=== PATIENT | female | born 1995 | race Caucasian/White ===

== ENCOUNTER → 2016-09-07 | Outpatient (REF) | payer OTHER ==
[2016-09-16 15:14] LABS: FREE CORTISOL 24HR URINE 36 ug/24 hr (0-50); FREE CORTISOL URINE 26 ug/L (Undefined)
== END ==
LOC: M LAB REF 09:00
PROVIDERS: ATTEND Internal Medicine Endocrinology, Diabetes & Metabolism
DX: E66.9 Obesity, unspecified (principal)

== ENCOUNTER → 2016-09-26 | Outpatient (CLI) | payer OTHER ==
[2016-09-26 13:03] LABS: BASO % 0.3 % (0.0-1.0); EOS # 0.2 K/mm3 (0.0-0.50); EOS % 1.9 % (0.0-3.0); LARGE UNSTAINED CELL # 0.2 K/mm3 (0.0-0.4); LARGE UNSTAINED CELL % 1.4 % (0.0-4.0); LYMPH # 2.2 K/mm3 (1.5-6.5); LYMPH % 19.7 % (24.0-44.0); MEAN CORPUSCULAR HEMOGLOBIN 26.6 pg (27.0-33.0); MEAN CORPUSCULAR HGB CONC 31.4 g/dl (32.0-36.5); MEAN CORPUSCULAR VOLUME 84.6 fl (80.0-96.0); MONO # 0.6 K/mm3 (0.0-0.8); MONO % 5.4 % (0.0-5.0); NEUTROPHILS % 71.4 % (36.0-66.0); PLATELET COUNT, AUTOMATED 462 k/mm3 (150-450); RED CELL DISTRIBUTION WIDTH 12.9 % (11.5-14.5); WHITE BLOOD COUNT 11.2 K/mm3 (4.0-10.0)
[2016-09-26 13:17] LABS: ALBUMIN 3.4 GM/DL (3.2-5.2); ALBUMIN/GLOBULIN RATIO 0.89 (1.00-1.93); ALKALINE PHOSPHATASE 149 U/L (45-117); ALT/SGPT 22 U/L (12-78); ANION GAP 9 MEQ/L (8-16); AST/SGOT 14 U/L (15-37); BILIRUBIN,TOTAL 0.2 MG/DL (0.2-1.0); BLOOD UREA NITROGEN 12 MG/DL (7-18); CALCIUM LEVEL 9.1 MG/DL (8.5-10.1); CARBON DIOXIDE LEVEL 25 MEQ/L (21-32); CHLORIDE LEVEL 105 MEQ/L (98-107); CREATININE FOR GFR 0.81 MG/DL (0.55-1.02); FREE T4 0.97 NG/DL (0.76-1.46); GLOMERULAR FILTRATION RATE > 60.0 (>60); GLUCOSE, FASTING 215 MG/DL (70-105); POTASSIUM SERUM 4.5 MEQ/L (3.5-5.1); SODIUM LEVEL 139 MEQ/L (136-145); TOTAL PROTEIN 7.2 GM/DL (6.4-8.2)
== END ==
LOC: M LAB 11:38
PROVIDERS: ATTEND Family Medicine
DX: E10.65 Type 1 diabetes mellitus with hyperglycemia (principal)

== ENCOUNTER → 2016-10-02 | Outpatient (CLI) | payer OTHER ==
[2016-10-02 15:50] LABS: FOLATE 12.1 NG/ML (>5.4)
[2016-10-02 17:01] LABS: PERCENT SATURATION 10.7 % (13.2-37.4)
== END ==
LOC: M LAB 12:47
PROVIDERS: ATTEND Family Medicine
DX: E55.9 Vitamin D deficiency, unspecified (principal); D64.9 Anemia, unspecified

== ENCOUNTER → 2017-03-28 | Outpatient (CLI) | payer OTHER ==
[~2017-03-28] MED LIST: AUGM875T28 PO; EFFE150C PO; INSUH10VL SC; INSULANT SC; IRON50TA PO; VITA-137 PO
[2017-03-28 14:09] LABS: PERCENT SATURATION 14.9 % (13.2-45.0)
== END ==
LOC: M LAB 13:02
PROVIDERS: ATTEND Family Medicine
DX: E55.9 Vitamin D deficiency, unspecified (principal)

== ENCOUNTER → 2017-04-18 | Outpatient (REF) | payer OTHER | LOC: M LAB REF 15:00 | PROVIDERS: ATTEND Family Medicine | DX: Z12.4 Encounter for screening for malignant neoplasm of cervix (principal) ==

== ENCOUNTER 2017-07-24 04:18 | Emergency (ER) | payer OTHER ==
[~2017-07-24] VITALS: Ht 157.5 cm; Wt 90.9 kg
[2017-07-24] MEDS ORDERED: ONDANSETRON 4MG/2ML VIAL (J2405) IV ONE (05:00)
[2017-07-24] MEDS ORDERED: D5W/0.45% SODIUM CHLORIDE 1,000 ML IV SCH (05:00)
[2017-07-24 05:32] LABS: ANION GAP 7 MEQ/L (8-16); BLOOD UREA NITROGEN 16 MG/DL (7-18); CALCIUM LEVEL 9.2 MG/DL (8.5-10.1); CARBON DIOXIDE LEVEL 30 MEQ/L (21-32); CHLORIDE LEVEL 102 MEQ/L (98-107); CREATININE FOR GFR 0.83 MG/DL (0.55-1.02); GLOMERULAR FILTRATION RATE > 60.0 (>60); GLUCOSE, FASTING 125 MG/DL (70-105); SODIUM LEVEL 139 MEQ/L (136-145)
[2017-07-24] MEDS ORDERED: METOCLOPRAMIDE INJ 10MG/2ML VIAL (J2765) IV ONE (06:45)
[2017-07-24] MEDS ORDERED: PROMETHAZINE INJ 25 MG/ML VIAL (J2550) IV ONE (08:15)
[2017-07-24] MEDS ORDERED: MECLIZINE 25 MG TABLET PO ONE (10:00)
[2017-07-24] MEDS ORDERED: NS 1,000 ML IV ONE (11:45)
[2017-07-24] MEDS ORDERED: ZOFR4TAB3 PO (12:02)
[2017-07-24 13:16] VITALS: BP 150/87
== END 2017-07-24 13:18 | disposition home or self-care (01) ==
LOC: M ED 04:18
DX: E10.649 Type 1 diabetes mellitus with hypoglycemia without coma (principal); T38.3X1A Poisoning by insulin and oral hypoglycemic [antidiabetic] drugs, accidental (unintentional), initial encounter; Y92.9 Unspecified place or not applicable; Y93.9 Activity, unspecified; Z79.4 Long term (current) use of insulin; Z79.899 Other long term (current) drug therapy
CPT/HCPCS: 80048; 96361; 96374; 96375; 99284; J2405; J2765

== ENCOUNTER 2018-07-17 10:49 | Emergency (ER) | payer OTHER, SELFPAY ==
[2018-07-17 11:24] LABS: BASO # 0.1 10^3/uL (0.0-0.2); BASO % 0.5 % (0.0-1.0); EOS # 0.1 10^3/uL (0.0-0.50); EOS % 0.9 % (0.0-3.0); HEMATOCRIT 40.6 % (36.0-47.0); HEMOGLOBIN 13.2 g/dl (12.0-15.5); IMMATURE GRANULOCYTE % 0.4 % (0-3.0); LYMPH # 3.3 10^3/uL (1.5-6.5); LYMPH % 29.9 % (24.0-44.0); MEAN CORPUSCULAR HEMOGLOBIN 27.8 pg (27.0-33.0); MEAN CORPUSCULAR HGB CONC 32.5 g/dl (32.0-36.5); MEAN CORPUSCULAR VOLUME 85.5 fl (80.0-96.0); MONO # 0.8 10^3/uL (0.0-0.8); MONO % 7.1 % (0.0-5.0); NEUTROPHILS # 6.7 10^3/uL (1.8-7.7); NEUTROPHILS % 61.2 % (36.0-66.0); PLATELET COUNT, AUTOMATED 407 10^3/uL (150-450); RED BLOOD COUNT 4.75 10^6/uL (4.00-5.40)
[2018-07-17 11:26] LABS: BEDSIDE GLUCOSE 211 MG/DL (70-105)
[2018-07-17 11:30] LABS: KETONE, URINE AUTO RFX NEGATIVE (NEGATIVE); LEUKOCYTE ESTERASE UR AUTO RFX 3+ (NEGATIVE); NITRITE, URINE AUTO RFX NEGATIVE (NEGATIVE); RBC, URINE AUTO RFX 17 /HPF (0-3); SPECIFIC GRAVITY UR AUTO RFX 1.014 (1.002-1.035); SQUAM EPITHELIAL CELL UR AURFX 5 /HPF (0-6); WBC, URINE AUTO RFX 12 /HPF (0-3)
[2018-07-17] MEDS: HumaLOG INSULIN (NovoLOG) PER UNIT SC (12:04)
[2018-07-17 13:11] LABS: HCG, SERUM QUANTITATIVE 9218 MIU/ML
== END 2018-07-17 13:37 | disposition home or self-care (01) ==
LOC: M ED 10:49
DX: O23.31 Infections of other parts of urinary tract in pregnancy, first trimester (principal); Z3A.01 Less than 8 weeks gestation of pregnancy; O24.011 Pre-existing type 1 diabetes mellitus, in pregnancy, first trimester; E10.9 Type 1 diabetes mellitus without complications; O99.341 Other mental disorders complicating pregnancy, first trimester; F41.9 Anxiety disorder, unspecified; Z79.899 Other long term (current) drug therapy; Z79.84 Long term (current) use of oral hypoglycemic drugs
CPT/HCPCS: 76801

== ENCOUNTER → 2018-07-22 | Outpatient (CLI) | payer OTHER ==
[2018-07-22 17:39] LABS: HEMATOCRIT 40.1 % (36.0-47.0); HEMOGLOBIN 12.9 g/dl (12.0-15.5); MEAN CORPUSCULAR HEMOGLOBIN 27.6 pg (27.0-33.0); MEAN CORPUSCULAR HGB CONC 32.2 g/dl (32.0-36.5); MEAN CORPUSCULAR VOLUME 85.9 fl (80.0-96.0); PLATELET COUNT, AUTOMATED 413 10^3/uL (150-450); RED BLOOD COUNT 4.67 10^6/uL (4.00-5.40); WHITE BLOOD COUNT 11.1 10^3/uL (4.0-10.0)
[2018-07-22 18:00] LABS: HCG, SERUM QUANTITATIVE 630 MIU/ML
== END ==
LOC: M LAB 17:07
DX: C03.9 Malignant neoplasm of gum, unspecified (principal)
CPT/HCPCS: 84702

== ENCOUNTER → 2018-08-04 | Outpatient (CLI) | payer OTHER ==
[~2018-08-04] MED LIST changes: -EFFE150C PO; +EFFE150C2 PO; +FLUO20CA19 PO; +LANTINJ4; +MACR100C43 PO; +NOVOINJ3; +RIGHTAB2 PO; +ZOFR4TAB14 PO
== END ==
LOC: M SMT 10:47
PROVIDERS: ATTEND Obstetrics & Gynecology
DX: O03.9 Complete or unspecified spontaneous abortion without complication (principal)

== ENCOUNTER → 2018-10-09 | Outpatient (REF) | payer OTHER | LOC: M LAB REF 17:36 | PROVIDERS: ATTEND Physician Assistant | DX: R10.11 Right upper quadrant pain (principal) ==

== ENCOUNTER → 2018-10-19 | Outpatient (REF) | payer OTHER | LOC: M LAB REF 17:41 | PROVIDERS: ATTEND Physician Assistant | DX: J09.X2 Influenza due to identified novel influenza A virus with other respiratory manifestations (principal); J02.9 Acute pharyngitis, unspecified ==

== ENCOUNTER → 2019-01-07 | Outpatient (REF) | payer OTHER | LOC: M LAB REF 17:07 | PROVIDERS: ATTEND Physician Assistant | DX: N30.01 Acute cystitis with hematuria (principal) ==

== ENCOUNTER → 2019-03-18 | Outpatient (REF) | payer OTHER ==
[2019-03-18 14:37] LABS: CREATININE,RANDOM URINE 90.1 MG/DL; TOTAL PROTEIN,RANDOM URINE 132.5 MG/DL (0.0-12.0)
== END ==
LOC: M LAB REF 13:18
PROVIDERS: ATTEND Internal Medicine Nephrology
DX: R80.9 Proteinuria, unspecified (principal)

== ENCOUNTER 2019-05-25 11:18 | Emergency (ER) | payer OTHER ==
[~2019-05-25] VITALS: Ht 157.5 cm; Wt 104.3 kg
[2019-05-25] MEDS ORDERED: D 50CAP (11:25)
[2019-05-25] MEDS ORDERED: PRENTAB56 (11:25)
[2019-05-25] MEDS ORDERED: NORG0.25 (11:25)
[2019-05-25] MEDS ORDERED: LOSA25TA14 (11:25)
[2019-05-25 11:37] VITALS: BP 139/70
--- NOTE | 2019-05-25 12:47 | REP ---
LEFT FOOT, FOUR VIEWS: There is no evidence of an acute fracture, dislocation or intrinsic bone disease. IMPRESSION: No fracture or dislocation. Electronically Signed by Leonard Bose MD 05/25/2019 11:33 P
== END 2019-05-25 12:29 | disposition home or self-care (01) ==
LOC: M ED 11:18
DX: S93.401A Sprain of unspecified ligament of right ankle, initial encounter (principal); W18.41XA Slipping, tripping and stumbling without falling due to stepping on object, initial encounter; Y92.89 Other specified places as the place of occurrence of the external cause; Z79.899 Other long term (current) drug therapy

== ENCOUNTER → 2019-08-24 | Outpatient (REF) | payer OTHER ==
[~2019-08-24] MED LIST changes: +D 50CAP; +LOSA25TA14; +NORG0.25; +PRENTAB56
[2019-08-24 17:37] LABS: CALCIUM LEVEL 9.4 MG/DL (8.5-10.1); CREATININE FOR GFR 1.21 MG/DL (0.55-1.30); GLOMERULAR FILTRATION RATE 57.7 (>60); POTASSIUM SERUM 4.3 MEQ/L (3.5-5.1)
== END ==
LOC: M LAB REF 17:03
PROVIDERS: ATTEND Internal Medicine Nephrology
DX: N18.2 Chronic kidney disease, stage 2 (mild) (principal)

== ENCOUNTER → 2019-09-08 | Outpatient (CLI) | payer OTHER ==
[2019-09-08 15:43] LABS: BASO % 0.3 % (0.0-1.0); EOS # 0.2 10^3/uL (0.0-0.5); EOS % 1.6 % (0.0-3.0); HEMATOCRIT 39.8 % (36.0-47.0); HEMOGLOBIN 12.6 g/dl (12.0-15.5); LYMPH # 4.2 10^3/uL (1.5-5.0); LYMPH % 30.7 % (24.0-44.0); MEAN CORPUSCULAR HEMOGLOBIN 26.9 pg (27.0-33.0); MEAN CORPUSCULAR HGB CONC 31.7 g/dl (32.0-36.5); MEAN CORPUSCULAR VOLUME 84.9 fl (80.0-96.0); MONO # 1.1 10^3/uL (0.0-0.8); MONO % 7.8 % (0.0-5.0); NEUTROPHILS # 8.1 10^3/uL (1.5-8.5); PLATELET COUNT, AUTOMATED 448 10^3/uL (150-450); RED BLOOD COUNT 4.69 10^6/uL (4.00-5.40); WHITE BLOOD COUNT 13.8 10^3/uL (4.0-10.0)
[2019-09-08 16:22] LABS: ALBUMIN 3.3 GM/DL (3.2-5.2); BILIRUBIN,TOTAL 0.2 MG/DL (0.2-1.0); CALCIUM LEVEL 9.8 MG/DL (8.5-10.1); CREATININE FOR GFR 1.23 MG/DL (0.55-1.30); FREE T4 1.03 NG/DL (0.76-1.46); GLOMERULAR FILTRATION RATE 56.6 (>60); POTASSIUM SERUM 3.9 MEQ/L (3.5-5.1); THYROID STIMULATING HORMONE 2.88 uIU/ML (0.358-3.740); TOTAL PROTEIN 7.6 GM/DL (6.4-8.2)
[2019-09-08 16:25] LABS: TOTAL 25(OH) VITAMIN D 59.2 NG/ML (30.0-100.0)
[2019-09-08 16:43] LABS: MAU/CREAT RATIO 1556.6 MCG/MG (0.0-30.0)
== END ==
LOC: M LAB 15:14
PROVIDERS: ATTEND Family Medicine
DX: R80.8 Other proteinuria (principal); E10.65 Type 1 diabetes mellitus with hyperglycemia; Z68.41 Body mass index [BMI] 40.0-44.9, adult

== ENCOUNTER → 2020-03-19 | Outpatient (CLI) | payer OTHER ==
[~2020-03-19] MED LIST changes: +CETI10CH PO; -FLUO20CA19 PO; +FLUO20CA22 PO
== END ==
LOC: M LABSMTC 09:00
PROVIDERS: ATTEND Family Medicine
DX: Z11.59 Encounter for screening for other viral diseases (principal); Z20.828 Contact with and (suspected) exposure to other viral communicable diseases
CPT/HCPCS: C9803; U0003

== ENCOUNTER 2020-06-05 22:11 | Emergency (ER) | payer OTHER ==
[~2020-06-05] VITALS: Ht 157.5 cm; Wt 114.7 kg
[~2020-06-05 22:11] MED LIST changes: -CETI10CH PO
[2020-06-05] MEDS ORDERED: CETI10CH PO (22:17)
[2020-06-06 00:32] LABS: BASO # 0.1 10^3/uL (0.0-0.2); BASO % 0.5 % (0.0-1.0); EOS # 0.2 10^3/uL (0.0-0.5); EOS % 2.1 % (0.0-3.0); HEMATOCRIT 38.5 % (36.0-47.0); HEMOGLOBIN 12.1 g/dl (12.0-15.5); LYMPH # 3.5 10^3/uL (1.5-5.0); LYMPH % 31.6 % (24.0-44.0); MEAN CORPUSCULAR HGB CONC 31.4 g/dl (32.0-36.5); MEAN CORPUSCULAR VOLUME 85.9 fl (80.0-96.0); MONO # 1.1 10^3/uL (0.0-0.8); MONO % 10.3 % (0.0-5.0); NEUTROPHILS # 6.1 10^3/uL (1.5-8.5); NEUTROPHILS % 55.2 % (36.0-66.0); PLATELET COUNT, AUTOMATED 445 10^3/uL (150-450); RED BLOOD COUNT 4.48 10^6/uL (4.00-5.40)
--- NOTE | 2020-06-06 02:27 | REPVR ---
PROCEDURE INFORMATION: Exam: US Nonobstetric Pelvis; Complete Exam date and time: 06/06/20 (1:39am) Age: 25 years old Clinical indication: Pelvic pain. Cramping. Late menses. TECHNIQUE: Imaging protocol: Transabdominal and transvagainal pelvic non-obstetric ultrasound. Complete examination. Real time ultrasound with image documentation. COMPARISON: No relevant prior studies available FINDINGS: The LMP is reported to be: 04/29/20 The uterus is anteverted, measuring 7.2 x 3.6 x 4.3 cm in dimensions. No uterine mass is seen. The endometrium is thickened (12 mm thickness). The right ovary measures 3.1 x 3.0 x 3.3 cm in size. Right ovarian cyst (1.3 cm size). The left ovary measures 2.8 x 2.4 x 2.4 cm in size. There is no evidence of ovarian torsion on Doppler evaluation. No free pelvic fluid. No solid adnexal masses. Urinary bladder measures 6.1 x 2.7 x 5.0 cm in dimensions. Bladder volume = 67 ml. IMPRESSION: No acute pathology. Thickened endometrium (12 mm thickness). Simple right ovarian cyst (1.3 cm size). No evidence of ovarian torsion. No free pelvic fluid. Electronically signed by: Cookie Khan On 06/06/2020 02:27:24 AM
[2020-06-06 04:15] VITALS: BP 132/66
== END 2020-06-06 04:16 | disposition home or self-care (01) ==
LOC: M ED 22:11
DX: N91.2 Amenorrhea, unspecified (principal); N83.291 Other ovarian cyst, right side; E10.9 Type 1 diabetes mellitus without complications; F41.9 Anxiety disorder, unspecified; Z79.4 Long term (current) use of insulin; Z79.899 Other long term (current) drug therapy

== ENCOUNTER → 2020-08-18 | Outpatient (REF) | payer OTHER ==
[~2020-08-18] MED LIST changes: +CETI10CH PO
== END ==
LOC: M LAB REF 12:58
PROVIDERS: ATTEND Family Medicine
DX: J06.9 Acute upper respiratory infection, unspecified (principal)

== ENCOUNTER → 2020-09-06 | Outpatient (REF) | payer OTHER | LOC: M SFHCWAGY 13:20 | PROVIDERS: ATTEND Obstetrics & Gynecology | DX: Z12.4 Encounter for screening for malignant neoplasm of cervix (principal) | CPT/HCPCS: G0123; G0463 ==

== ENCOUNTER → 2020-10-06 | Outpatient (REF) | payer OTHER ==
[2020-10-06 13:29] LABS: INFLUENZA A AMPLIFICATION NEGATIVE (NEGATIVE); INFLUENZA B AMPLIFICATION NEGATIVE (NEGATIVE)
== END ==
LOC: M LAB REF 12:28
PROVIDERS: ATTEND Physician Assistant
DX: R50.9 Fever, unspecified (principal)

== ENCOUNTER → 2020-11-30 | Outpatient (REF) | payer OTHER ==
[2020-11-30 14:27] LABS: HEMATOCRIT 38.7 % (36.0-47.0); HEMOGLOBIN 11.9 g/dl (12.0-15.5); MEAN CORPUSCULAR HEMOGLOBIN 26.6 pg (27.0-33.0); MEAN CORPUSCULAR HGB CONC 30.7 g/dl (32.0-36.5); MEAN CORPUSCULAR VOLUME 86.4 fl (80.0-96.0); PLATELET COUNT, AUTOMATED 446 10^3/uL (150-450); RED BLOOD COUNT 4.48 10^6/uL (4.00-5.40); WHITE BLOOD COUNT 11.3 10^3/uL (4.0-10.0)
[2020-11-30 16:09] LABS: CHLAMYDIA DNA AMPLIFICATION NEGATIVE (NEGATIVE); GC DNA AMPLIFICATION NEGATIVE (NEGATIVE)
[2020-11-30 17:54] LABS: ALT/SGPT 32 U/L (12-78); BILIRUBIN,TOTAL 0.3 MG/DL (0.2-1.0); GLOMERULAR FILTRATION RATE > 60.0 (>60); LDH LACTATE DEHYDROGENASE 226 U/L (84-246); URIC ACID 4.5 MG/DL (2.6-6.0)
[2020-11-30 18:43] LABS: CREATININE,RANDOM URINE 22.2 MG/DL
[2020-11-30 20:20] LABS: HIV 1&2 SCREEN CENTAUR NEGATIVE (NEGATIVE)
[2020-11-30 22:53] LABS: HEMOGLOBIN A1c 7.7 %
== END ==
LOC: M PLALAB 10:06
PROVIDERS: ATTEND Advanced Practice Midwife
DX: O24.319 Unspecified pre-existing diabetes mellitus in pregnancy, unspecified trimester (principal); Z3A.00 Weeks of gestation of pregnancy not specified

== ENCOUNTER → 2020-12-05 | Outpatient (REF) | payer OTHER ==
[2020-12-05 19:36] LABS: CREATININE, URINE 97.5 MG/DL; URINE TOTAL PROTEIN 111.3 MG/DL (0-12)
[2020-12-05 20:53] LABS: CREATININE 24 HOUR, URINE 1491.7 MG/24HR (600-1800); TOTAL PROTEIN 24 HOUR URINE 1702.8 MG/24HR (50-150)
== END ==
LOC: M LAB REF 16:55
PROVIDERS: ATTEND Internal Medicine Nephrology
DX: R80.9 Proteinuria, unspecified (principal)

== ENCOUNTER → 2020-12-09 | Outpatient (CLI) | payer OTHER | LOC: M PLALAB 15:20 | PROVIDERS: ATTEND Obstetrics & Gynecology | DX: Z34.81 Encounter for supervision of other normal pregnancy, first trimester (principal); Z3A.00 Weeks of gestation of pregnancy not specified ==

== ENCOUNTER 2020-12-18 01:22 | Observation (INO) | payer OTHER ==
[~2020-12-18] VITALS: Ht 157.5 cm; Wt 109.3 kg
[~2020-12-18 01:22] MED LIST changes: -NOVOINJ3; +NOVOINJ3 SC
[2020-12-18] MEDS ORDERED: LABE100T5 PO (01:32)
[2020-12-18] MEDS ORDERED: ONDA-83 PO (01:33)
[2020-12-18] MEDS ORDERED: D5W/LR 1,000 ML IV ONE (02:10)
[2020-12-18] MEDS ORDERED: ONDANSETRON 4MG/2ML VIAL IV ONE ×2 (02:40→18:00)
[2020-12-18 02:59] LABS: BASO % 0.2 % (0.0-1.0); EOS % 0.3 % (0.0-3.0); HEMATOCRIT 37.8 % (36.0-47.0); HEMOGLOBIN 12.2 g/dl (12.0-15.5); LYMPH # 1.7 10^3/uL (1.5-5.0); LYMPH % 13.3 % (24.0-44.0); MEAN CORPUSCULAR HEMOGLOBIN 27.1 pg (27.0-33.0); MEAN CORPUSCULAR HGB CONC 32.3 g/dl (32.0-36.5); MEAN CORPUSCULAR VOLUME 83.8 fl (80.0-96.0); MONO # 0.9 10^3/uL (0.0-0.8); NEUTROPHILS # 10.3 10^3/uL (1.5-8.5); NEUTROPHILS % 78.8 % (36.0-66.0); PLATELET COUNT, AUTOMATED 408 10^3/uL (150-450); RED BLOOD COUNT 4.51 10^6/uL (4.00-5.40); WHITE BLOOD COUNT 13.1 10^3/uL (4.0-10.0)
[2020-12-18 03:51] LABS: ALBUMIN 3.1 GM/DL (3.2-5.2); ALT/SGPT 30 U/L (12-78); BILIRUBIN,DIRECT < 0.1 MG/DL (0.0-0.2); BILIRUBIN,TOTAL 0.2 MG/DL (0.2-1.0); BLOOD UREA NITROGEN 10 MG/DL (7-18); CALCIUM LEVEL 9.3 MG/DL (8.5-10.1); CARBON DIOXIDE LEVEL 25 MEQ/L (21-32); CHLORIDE LEVEL 106 MEQ/L (98-107); CREATININE FOR GFR 0.84 MG/DL (0.55-1.30); GLOMERULAR FILTRATION RATE > 60.0 (>60); GLUCOSE, FASTING 115 MG/DL (70-100); HCG, SERUM QUANTITATIVE 59495 MIU/ML; LIPASE 43 U/L (73-393); POTASSIUM SERUM 4.3 MEQ/L (3.5-5.1); SODIUM LEVEL 137 MEQ/L (136-145); TOTAL PROTEIN 7.6 GM/DL (6.4-8.2)
[2020-12-18 05:05] LABS: APPEARANCE, URINE CLOUDY (CLEAR); BACTERIA, URINE AUTO 1+ (NEGATIVE); BILIRUBIN, URINE AUTO NEGATIVE (NEGATIVE); BLOOD, URINE BLOOD NEGATIVE (NEGATIVE); COLOR, URINE YELLOW (YELLOW); GLUCOSE, URINE (UA) AUTO 1+ mg/dL (NEGATIVE); KETONE, URINE AUTO 2+ mg/dL (NEGATIVE); LEUKOCYTE ESTERASE, URINE AUTO TRACE (NEGATIVE); MUCUS, URINE MODERATE (NEGATIVE); NITRITE, URINE AUTO NEGATIVE (NEGATIVE); PROTEIN, URINE AUTO 3+ mg/dL (NEGATIVE); RBC, URINE AUTO 11 /HPF (0-3); SPECIFIC GRAVITY URINE AUTO 1.022 (1.002-1.035); SQUAMOUS EPITHELIAL CELL UR AU 10 /HPF (0-6); UROBILINOGEN, URINE AUTO 0.2 mg/dL (0.0-2.0); WBC, URINE AUTO 10 /HPF (0-3)
[2020-12-18] MEDS ORDERED: NS 1,000 ML IV ONE (07:50)
[2020-12-18] MEDS ORDERED: ACETAMINOPHEN TAB 650MG DOSE (2X325MG) PO PRN (08:10)
[2020-12-18] MEDS ORDERED: PREN1CHW6 PO (08:21)
[2020-12-18] MEDS ORDERED: D 50CAP3 PO (08:21)
[2020-12-18] MEDS ORDERED: METF500T13 PO (08:21)
--- NOTE | 2020-12-18 08:29 | HPEPDOC ---
General Date of Admission 12/18/20 Date of Service: December 18, 2020 Chief Complaint The patient is a 25-year-old female admitted with a reason for visit of Gestational N/V. Source: Patient Exam Limitations: No limitations History of Present Illness Patient is 25 years old female with past medical history of type 1 diabetes on insulin pump, chronic kidney diseases stage III presented to the hospital with multiple episodes of vomiting and nausea. Patient is 14 weeks and reported that for past few weeks she has been having intermittent nausea. Jayne forde stated that 3 days ago and nausea became constant and she started having multiple episodes of vomiting up to 20 times for past 24 hours. Patient denied fever, chills, diarrhea. She didn't eat any unusual food. She denied any stomach pain. In emergency room patient was found to have glucose level of 115, leukocytosis of 13.1. No anion gap. Home Medications Scheduled Cholecalciferol (Vitamin D3) (Vitamin D3) 125 Mcg Capsule, 5,000 UNITS PO QHS, (Reported) Fluoxetine Hcl (Fluoxetine HCl) 20 Mg Cap, 20 MG PO QHS, (Reported) Insulin Aspart (Novolog Flexpen) 100 Unit/Ml Inj, 1 DOSE SC ASDIRECTED, (Reported) VIA INSULIN PUMP Labetalol HCl (Labetalol HCl) 100 Mg Tablet, 100 MG PO BID, (Reported) Metformin HCl (Metformin HCl) 500 Mg Tablet, 500 MG PO BID, (Reported) Vit37/Iron/Folic Acid (Prenata Chewable Tablet) 1 Each Tab.chew, 1 CHW PO QHS, (Reported) Scheduled PRN Ondansetron HCl (Ondansetron HCl) 4 Mg Tablet, 4 MG PO Q4HP PRN for NAUSEA OR VOMITING, (Reported) Allergies Coded Allergies: No Known Allergies (Unverified , 06/15/17) Past Medical History Medical History Type 1 diabetes, CKD stage II,history of miscarriage Family History Patient was adopted Social History * Smoker: Denies Alcohol: Denies Drugs: denies A-FIB/CHADSVASC A-FIB History Current/History of A-Fib/PAF?: No Current PO Anticoag Therapy: No Review of Systems Constitutional: Denies: Chills, Fever Eyes: Denies: Pain ENT: Denies: Head Aches Skin: Denies: Rash, Lesions Pulmonary: Denies: Dyspnea Cardiovascular: Denies: Chest Pain, Palpitations Gastrointestinal: Reports: Nausea, Vomiting Genitourinary: Denies: Dysuria Hematologic: Denies: Bruising Endocrine: Denies: Polydipsia Musculoskeletal: Denies: Neck Pain Neurological: Denies: Weakness Psych: Reports: Mood Normal Physical Examination General Exam: Positive: Alert, Cooperative Eye Exam: Positive: PERRLA ENT Exam: Positive: Atraumatic Neck Exam: Positive: Supple; Negative: JVD Chest Exam: Positive: Clear to auscultation Heart Exam: Positive: Rate Normal Telemetry: Positive: No significant arrhythmia Abdomen Exam: Positive: BS Hyperactive Extremity Exam: Negative: Clubbing Skin Exam: Positive: Nl turgor and temperature Neuro Exam: Positive: Normal Gait Psych Exam: Positive: Mental status NL Vital Signs Vital Signs Date Time Temp Pulse Resp B/P (MAP) Pulse Ox O2 Delivery O2 Flow Rate FiO2 12/18/20 07:27 97.4 100 16 120/65 (83) 99 12/18/20 01:23 Room Air Laboratory Data Labs 24H Laboratory Tests 2 12/18/20 01:37: Immature Granulocyte % (Auto) 0.4, Neutrophils (%) (Auto) 78.8H, Lymphocytes (%) (Auto) 13.3L, Monocytes (%) (Auto) 7.0, Eosinophils (%) (Auto) 0.3, Basophils (%) (Auto) 0.2, Neutrophils # (Auto) 10.3H, Lymphocytes # (Auto) 1.7, Monocytes # (Auto) 0.9H, Eosinophils # (Auto) 0.0, Basophils # (Auto) 0.0, Nucleated Red Blood Cells % (auto) 0.0, Anion Gap 6L, Glomerular Filtration Rate > 60.0, Calcium Level 9.3, Total Bilirubin 0.2, Direct Bilirubin < 0.1, Aspartate Amino Transf (AST/SGOT) 21, Alanine Aminotransferase (ALT/SGPT) 30, Alkaline Phosphatase 103, Total Protein 7.6, Albumin 3.1L, Albumin/Globulin Ratio 0.7L, Lipase 43L, Thyroid Stimulating Hormone (TSH) 1.480, Human Chorionic Gonadotropin, Quant [id number] 12/18/20 03:02: Bedside Glucose (Misc Panel) 124H 12/18/20 04:30: Urine Color YELLOW, Urine Appearance CLOUDYH, Urine pH 5.0, Urine Specific [place] 1.022, Urine Protein 3+H, Urine Glucose (Auto)(UA) 1+H, Urine Ketones (Auto) 2+H, Urine Blood NEGATIVE, Urine Nitrite NEGATIVE, Urine Bilirubin NEGATIVE, Urine Urobilinogen 0.2, Urine Leukocyte Esterase (Auto) TRACEH, Urine WBC (Auto) 10H, Urine RBC (Auto) 11H, Urine Hyaline Casts (Auto) 0, Urine Bacteria (Auto) 1+H, Urine Squamous Epithelial Cells 10, Urine Mucus (Auto) MODERATE, Urine Sperm (Auto) CBC/BMP Laboratory Tests 12/18/20 01:37 Assessment/Plan Patient is 25 years old female with past medical history of type 1 diabetes on insulin pump, chronic kidney diseases stage III presented to the hospital with multiple episodes of vomiting and nausea. Patient is 14 weeks and reported that for past few weeks she has been having intermittent nausea. Patient stated that 3 days ago and nausea became constant and she started having multiple episodes of vomiting up to 20 times for past 24 hours. Patient denied fever, chills, diarrhea. She didn't eat any unusual food. She denied any stomach pain. In emergency room patient was found to have glucose level of 115, le ukocytosis of 13.1. No anion gap. Problems (1) Type 1 diabetes Status: Chronic Problem Text: Glucose level under control Patient continues to use insulin pump Diabetes diet ACHS (2) Hyperemesis gravidarum Status: Acute Problem Text: Zofran IV IV fluid Appreciated/agree with OPHTHALMIC PATHOLOGIST consult Plan / VTE VTE Prophylaxis Ordered?: Yes KIRSTEN WHITE DO December 18, 2020 08:29
[2020-12-18 09:55] LABS: RSV AMPLIFICATION NEGATIVE (NEGATIVE)
[2020-12-18] MEDS: ONDANSETRON 4MG/2ML VIAL IV PRN ×3 (11:05→21:13)
[2020-12-18] MEDS: NS 1,000 ML IV SCH (15:34)
[2020-12-18 16:00] VITALS: BP 108/52
[2020-12-18 20:00] VITALS: BP 136/70
[2020-12-18] MEDS: HEPARIN SOD (PORCINE) 5000UNITS/ML 1ML VIAL/SYRINGE SC SCH (21:12)
[2020-12-19] MEDS: ONDANSETRON 4MG/2ML VIAL IV PRN ×3 (01:13→12:12)
[2020-12-19] MEDS: NS 1,000 ML IV SCH (01:14)
[2020-12-19 04:00] VITALS: BP 136/80
[2020-12-19] MEDS ORDERED: HumaLOG INSULIN (NovoLOG) PER UNIT SC PRN (07:30)
[2020-12-19 07:33] LABS: HEMATOCRIT 34.2 % (36.0-47.0); MEAN CORPUSCULAR HEMOGLOBIN 27.2 pg (27.0-33.0); MEAN CORPUSCULAR HGB CONC 32.2 g/dl (32.0-36.5); MEAN CORPUSCULAR VOLUME 84.7 fl (80.0-96.0); PLATELET COUNT, AUTOMATED 388 10^3/uL (150-450); RED BLOOD COUNT 4.04 10^6/uL (4.00-5.40); WHITE BLOOD COUNT 11.3 10^3/uL (4.0-10.0)
[2020-12-19 07:52] VITALS: BP 145/74
[2020-12-19 08:01] LABS: ALBUMIN 2.8 GM/DL (3.2-5.2); ALT/SGPT 30 U/L (12-78); BILIRUBIN,TOTAL 0.4 MG/DL (0.2-1.0); BLOOD UREA NITROGEN 8 MG/DL (7-18); CALCIUM LEVEL 9.3 MG/DL (8.5-10.1); CARBON DIOXIDE LEVEL 21 MEQ/L (21-32); CHLORIDE LEVEL 107 MEQ/L (98-107); GLOMERULAR FILTRATION RATE > 60.0 (>60); GLUCOSE, FASTING 120 MG/DL (70-100); MAGNESIUM LEVEL 1.9 MG/DL (1.8-2.4); SODIUM LEVEL 138 MEQ/L (136-145); TOTAL PROTEIN 6.6 GM/DL (6.4-8.2)
--- NOTE | 2020-12-19 08:33 | CR ---
CONSULTATION DATE: 12/18/2020 REASON FOR CONSULT: 14 week gestation with nausea and vomiting. The patient also has a history of type 1 diabetes, chronic kidney disease. BRIEF HISTORY: Rosalina is a 25-year-old female, 1, para 0, at 14 weeks gestation with a significant history of type 1 diabetic and with resultant chronic kidney disease and high blood pressures. She is currently on an insulin pump, labetalol, metformin and fluoxetine. She presented to the emergency room with a three day history of worsening nausea and vomiting. Upon admission to the emergency room, she was hydrated, received approximately two liters of fluid, was found to have 2+ ketone in her urine. She had a glucose of 115. After hydration and lab work, the patient continued to have nausea and vomiting. Given her type 1 diabetes and chronic renal failure, the doctor contacted the hospitalist for admission and observation. The patient at this point has no other correlated symptoms, no bleeding, no pain. She denies any diarrhea or constipation, no dysuria. She is receiving care at [facility]. PAST MEDICAL HISTORY: Significant for type 1 diabetes, chronic kidney disease. SOCIAL HISTORY: She denies any alcohol, drug or cigarette smoking. FAMILY HISTORY: She was adopted, unknown. REVIEW OF SYSTEMS: Unremarkable. PHYSICAL EXAMINATION: Vital signs: The patient was afebrile, blood pressure 120/65. General: Normal appearing female in no acute distress. Abdomen: Soft, nontender, nondistended. Pelvic: Deferred. The patient had first trimester ultrasound which was within normal limits. LABORATORY DATA ON ADMISSION: Platelets were 480. H and H was 12.2/37.8, white count of 13.1. There were no electrolyte abnormalities. Her glucose was elevated at 115. Urine shows 2+ ketone and 3+ protein. ASSESSMENT: 1. Intrauterine at 14 weeks gestation with multiple medical illness including type 1 diabetes and chronic renal failure. 2. Gestational nausea and vomiting. No evidence of any hyperemesis. 3. Dehydration. PLAN: Agreed with patient being admitted for observation and IV hydration. Once the patient is stable from a medical standpoint, she can be discharged home with Dada to follow up with her OB as scheduled. At this point, no further obstetrical care is needed. Please reconsult if needed.
[2020-12-19] MEDS: HEPARIN SOD (PORCINE) 5000UNITS/ML 1ML VIAL/SYRINGE SC SCH (09:00)
[2020-12-19] MEDS ORDERED: ONDA4TAB6 PO (11:26)
--- NOTE | 2020-12-19 16:37 | DS.PDOC ---
Discharge Summary General Date of Admission December 18, 2020 at 08:29 Date of Discharge 12/19/20 Discharge Summary PROCEDURES PERFORMED DURING STAY: [None]. ADMITTING DIAGNOSES: Gestational nausea and vomiting Intrauterine at 14 weeks gestation DISCHARGE DIAGNOSES: Gestational nausea and vomiting Intrauterine at 14 weeks gestation COMPLICATIONS/CHIEF COMPLAINT: Hyperemesis Gravidarum. HISTORY OF PRESENT ILLNESS: Patient is 25 years old female with past medical history of type 1 diabetes on insulin pump, chronic kidney diseases stage III presented to the hospital with multiple episodes of vomiting and nausea. Patient is 14 weeks and reported that for past few weeks she has been having intermittent nausea. Patient stated that 3 days ago and nausea became constant and she started having multiple episodes of vomiting up to 20 times for past 24 hours. Patient denied fever, chills, diarrhea. She didn't eat any unusual food. She denied any stomach pain. In emergency room patient was found to have glucose level of 115, leukocytosis of 13.1. No anion gap. HOSPITAL COURSE: During this hospital stay following issues addressed (1) Type 1 diabetes Glucose level under control Patient continues to use insulin pump Diabetes diet ACHS (2) Gestational nausea and vomiting Zofran IV IV fluid DISCHARGE MEDICATIONS: Please see below. ALLERGIES: Please see below. PHYSICAL EXAMINATION ON DISCHARGE: VITAL SIGNS: Please see below. General Exam: Positive: Alert, Cooperative Eye Exam: Positive: PERRLA ENT Exam: Positive: Atraumatic Neck Exam: Positive: Supple; Negative: JVD Chest Exam: Positive: Clear to auscultation Heart Exam: Positive: Rate Normal Telemetry: Positive: No significant arrhythmia Abdomen Exam: Positive: BS Hyperactive Extremity Exam: Negative: Clubbing Skin Exam: Positive: Nl turgor and temperature Neuro Exam: Positive: Normal Gait Psych Exam: Positive: Mental status NL LABORATORY DATA: Please see below. PROGNOSIS: Fair ACTIVITY: [As tolerated]. DIET: Diabetes DISPOSITION: Home, Self-Care. 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 TIME SPENT ON DISCHARGE: 30 minutes. Vital Signs/I&Os Vital Signs Date Time Temp Pulse Resp B/P (MAP) Pulse Ox O2 Delivery O2 Flow Rate FiO2 12/19/20 07:52 98.8 84 14 145/74 (97) 99 Room Air I&O- Last 24 Hours up to 6 AM 12/19/20 06:00 Intake Total 2365 ml Output Total 1250 ml Balance 1115 ml Laboratory Data Labs 24H Laboratory Tests 2 12/18/20 18:11: Bedside Glucose (Misc Panel) 114H 12/18/20 21:05: Bedside Glucose (Misc Panel) 137H 12/19/20 06:51: Nucleated Red Blood Cells % (auto) 0.0, Anion Gap 10, Glomerular Filtration Rate > 60.0, Calcium Level 9.3, Magnesium Level 1.9, Total Bilirubin 0.4#, Aspartate Amino Transf (AST/SGOT) 22, Alanine Aminotransferase (ALT/SGPT) 30, Alkaline Phosphatase 96, Total Protein 6.6, Albumin 2.8L, Albumin/Globulin Ratio 0.7L 12/19/20 07:42: Bedside Glucose (Misc Panel) 109H 12/19/20 12:56: Bedside Glucose (Misc Panel) 116H CBC/BMP Laboratory Tests 12/19/20 06:51 FSBS Laboratory Tests Test 12/18/20 18:11 12/18/20 21:05 12/19/20 07:42 12/19/20 12:56 Range/Units Bedside Glucose (Misc Panel) 114 137 109 116 70-105 MG/DL Discharge Medications Scheduled Cholecalciferol (Vitamin D3) (Vitamin D3) 125 Mcg Capsule, 5,000 UNITS PO QHS, (Reported) Fluoxetine Hcl (Fluoxetine HCl) 20 Mg Cap, 20 MG PO QHS, (Reported) Insulin Aspart (Novolog Flexpen) 100 Unit/Ml Inj, 1 DOSE SC ASDIRECTED, (Reported) VIA INSULIN PUMP Labetalol HCl (Labetalol HCl) 100 Mg Tablet, 100 MG PO BID, (Reported) Metformin HCl (Metformin HCl) 500 Mg Tablet, 500 MG PO BID, (Reported) Vit37/Iron/Folic Acid (Prenata Chewable Tablet) 1 Each Tab.chew, 1 CHW PO QHS, (Reported) Scheduled PRN Ondansetron (Ondansetron Odt) 4 Mg Tab.rapdis, 4 MG PO Q6-8HP PRN for nausea/vomiting Ondansetron HCl (Ondansetron HCl) 4 Mg Tablet, 4 MG PO Q4HP PRN for NAUSEA OR VOMITING, (Reported) Allergies Coded Allergies: No Known Allergies (Unverified , 06/15/17) KIRSTEN WHITE DO December 19, 2020 16:37
== END 2020-12-19 14:16 | disposition home or self-care (01) ==
LOC: M ED 01:22 → M ED INP 08:29 → M PED 16:22
PROVIDERS: ADMIT Internal Medicine; ATTEND Internal Medicine
DX: O21.0 Mild hyperemesis gravidarum (principal); O24.011 Pre-existing type 1 diabetes mellitus, in pregnancy, first trimester; O26.831 Pregnancy related renal disease, first trimester; Z96.41 Presence of insulin pump (external) (internal); Z79.4 Long term (current) use of insulin; Z79.84 Long term (current) use of oral hypoglycemic drugs; Z79.899 Other long term (current) drug therapy; Z3A.14 14 weeks gestation of pregnancy
CPT/HCPCS: 36415; 80048; 80053; 80076; 81001; 83690; 83735; 84443; 84702; 85025; 85027; 87631; 96361; 96374; 96376; 99284; J1644; J2405

== ENCOUNTER → 2021-01-25 | Outpatient (CLI) | payer OTHER ==
[~2021-01-25] MED LIST changes: +D 50CAP3 PO; +LABE100T5 PO; +METF500T13 PO; +ONDA-83 PO; +ONDA4TAB6 PO; +PREN1CHW6 PO
--- NOTE | 2021-01-26 05:33 | REP ---
INDICATION: ANATOMY COMPARISON: None. TECHNIQUE: Transabdominal obstetrical ultrasound with color Doppler evaluation. FINDINGS: Examination demonstrates a single live intrauterine in breech presentation. motion is identified by technologist. Placenta is noted anterior and grade 0 without evidence for placenta previa or abruption. Amniotic fluid volume is normal. Cervix measures 3.9 cm in length and appears closed.. Selected gestational age: Nineteen weeks 3 days with ARTURO 06/18/2021. Gestational age by current measurements 19 weeks 0 days with ARTURO 06/21/2021. FHR equals 153 beats per minute. Estimated weight 268 grams (23rdpercentile). Anatomical assessment demonstrates normal structures including cranium, choroid plexus, cavum, cerebellum/posterior fossa, facial features, lungs, four-chamber heart, diaphragm, stomach, cord insertion/three-vessel cord, bladder, and extremities. Limited evaluation of the cardiac ventricular outflow tracts, kidneys and spine due to positioning. IMPRESSION: Single live intrauterine in breech presentation demonstrating appropriate interval growth. Anatomical limitations as noted above may warrant re-evaluation and follow-up. <Electronically signed by Sarwat Espinoza > 01/26/21 [id number]
== END ==
LOC: M WHC 14:29
PROVIDERS: ATTEND Specialist
DX: Z36.9 Encounter for antenatal screening, unspecified (principal); Z3A.19 19 weeks gestation of pregnancy

== ENCOUNTER → 2021-03-20 | Outpatient (REF) | payer OTHER | LOC: M LAB REF 13:04 | PROVIDERS: ATTEND Internal Medicine Nephrology | DX: N18.2 Chronic kidney disease, stage 2 (mild) (principal) ==

== ENCOUNTER → 2021-03-23 | Outpatient (REF) | payer OTHER ==
[2021-03-23 14:28] LABS: CREATININE 24 HOUR, URINE 1468.8 MG/24HR (600-1800); CREATININE, URINE 81.6 MG/DL; TOTAL PROTEIN 24 HOUR URINE 4579.2 MG/24HR (50-150); URINE TOTAL PROTEIN 254.4 MG/DL (0-12)
== END ==
LOC: M LAB REF 13:05
PROVIDERS: ATTEND Internal Medicine Nephrology
DX: R80.9 Proteinuria, unspecified (principal)

== ENCOUNTER 2021-06-25 13:44 | Emergency (ER) | payer OTHER ==
[~2021-06-25] VITALS: Ht 157.5 cm; Wt 118.2 kg
[2021-06-25 13:44] VITALS: BP 116/60
[2021-06-25] MEDS ORDERED: LOSA25TA14 PO (13:50)
[2021-06-25] MEDS ORDERED: BISO5TAB14 PO (13:50)
[2021-06-25] MEDS ORDERED: FAMO1TAB11 PO (13:50)
--- OUTSIDE RECORDS SUMMARY | 2021-06-25 13:51 | CCD | Continuity of Care Document ---
Author Author Rosalina WINKLER D.O. Organization Unknown Address [address] [place] [address] Phone [phone] Care Team Providers Care Gre Tutor Name Role Phone Raisa Winkler D.O. AUTM Problems Active Problems Provider Date Type 1 diabetes mellitus uncontrolled Raisa Winkler D.O. Onset: 07/27/2016 Generalized anxiety disorder Raisa Winkler D.O. Onse t: 07/27/2016 Low back pain Raisa Winkler D.O. Onset: 2015 Vitamin D deficiency Raisa Winkler D.O. Onset: 10/02 Anemia Raisa Winkler D.O. Onset: 2016 Obesity Raisa Winkler D.O. Onset: 2016 Body mass index 30+ - obesity Raisa Winkler D.O. Ons et: 10/02/2016 Visual impairment Raisa Winkler D.O. Onset: 2016 Diabetic retinopathy associated with type 1 diabetes m mikhail Santoyo D.O. 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 Onset: Social History Type Date Description Comments Sex Unknown ETOH Use Rarely consumes alcohol Tobacco Use Start: Unknown Patient has never smoked Recreational Drug Use Denies Drug Use Smoking Status Reviewed: 11/07/20 Patient has never smoked Exercise Type/Frequency Walks daily Exercise Type/Frequency Jogs sporadically Sun Exposure Uses sunscreen Seat Belt/Car Seat Always uses seat belt Allergies and adverse reactions Description No Known Drug Allergies Medications Active Medications SIG Qnty Indications Ordering Provide r Date Prozac 40mg Capsules 1 by mouth every day 90caps F43.23 Raisa Winkler D.O. 06/15/2021 Ondansetron HCL 4mg Tablets 1 tablets by mouth every 6 hours as needed for nausea 42tabs H81.10 Estefani Tyson.OCherelle 07/25/2020 Lidocaine 5% Patches apply one patch td on back daily as needed 90units M54.5 Estefani Tyson.O. 03/09/2020 Low Iron 27-0.8mg Tablets one tablet by mouth daily 90tabs Estefani Tyson.Famliia 10/03/2016 Vitamin D3 Ultra Strength 125mcg (5000 Ut) Capsules 1 by mouth every day 90caps Estefani Tyson.O. Novolog Viles Unknown Metformin 500 2x by mouth daily Unknown Promethazine HCL 25mg Tablets 1 tab by mouth every 6 hours nausea Unknown Losartan Potassium 25mg Tablets 1 by mouth every day Unknown Bisoprolol Fumarate 5mg Tablets 1 by mouth every day Unknown Immunizations Description No Information Available Vital Signs Date Vital Result Comment 06/15/2021 10:04am BP Systolic 118 mmHg BP Diastolic 70 mmHg Height 61.8 inches 5'1.80" Weight 264.25 lb BMI (Body Mass Index) 48.6 kg/m2 Heart Rate 99 /min Respiratory Rate 18 /min Body Temperature 97.7 F O2 % BldC Oximetry 99 % [place] Body Weight 105 lb 02/06/2021 9:34am BP Systolic 120 mmHg BP Diastolic 86 mmHg Height 61.8 inches 5'1.80" Weight 246.12 lb BMI (Body Mass Index) 45.3 kg/m2 Heart Rate 100 /min Respiratory Rate 12 /min Body Temperature 97.3 F O2 % BldC Oximetry 98 % [place] Body Weight 105 lb Results Test Acquired Date Facility Test Result H/L Range Note Ua Routine 12/18/2020 [facility] Outpatient Testi ng (Registration) [address] [place] [address] [phone] Appearance, Urine CLOUDY High Clear Color, Urine YELLOW Normal Yellow PH,Urine 5.0 units Normal 5.0-9.0 Specific [place] Urine Auto 1.022 Normal 1.002-1.035 Protein, Urine Auto 3+ mg/dL High Negative Glucose, Urine (Ua) Auto 1+ mg/dL High Negative Ketone, Urine Auto 2+ mg/dL High Negative Urobilinogen, Urine Auto 0.2 mg/dL Normal 0.0-2.0 Bilirubin, Urine Auto NEGATIVE Normal Negative Nitrite, Urine Auto NEGATIVE Normal Negative Leukocyte Esterase, Urine Auto TRACE High Negative Blood, Urine Blood NEGATIVE Normal Negative WBC, Urine Auto 10 /HPF High 0-3 RBC, Urine Auto 11 /HPF High 0-3 Bacteria, Urine Auto 1+ High Negative Squamous Epithelial Cell Ur AU 10 /HPF Normal 0-6 Mucus, Urine MODERATE Normal Negative Hyaline Cast, Urine Auto 0 /LPF Normal 0-1 Laboratory test finding 12/18/2020 [facility] Outpatient T augustus (Registration) [address] [place] [address] [phone] Bedside Glucose 124 mg/dL High 70-105 CBC With Differential 12/18/2020 [facility] Outpatient Eloina billy (Registration) [address] [place] [address] [phone] White Blood Count 13.1 10 High 4.0-10.0 Red Blood Count 4.51 10 Normal 4.00-5.40 Hemoglobin 12.2 g/dL Normal 12.0-15.5 Hematocrit 37.8 % Normal 36.0-47.0 Mean Corpuscular Volume 83.8 fl Normal 80.0-96.0 Mean Corpuscular Hemoglobin 27.1 pg Normal 27.0-33.0 Mean Corpuscular HGB Conc 32.3 g/dL Normal 32.0-36.5 Red Cell Distribution Width 13.7 % Normal 11.5-14.5 Platelet Count, Automated 408 10 Normal 150-450 Neutrophils % 78.8 % High 36.0-66.0 Lymph % 13.3 % Low 24.0-44.0 [place] % 7.0 % Normal 2.0-8.0 Eos % 0.3 % Normal 0.0-3.0 Baso % 0.2 % Normal 0.0-1.0 Immature Granulocyte % 0.4 % Normal 0-3.0 Nucleated Red Blood Cell % 0.0 % Normal 0-0 Neutrophils # 10.3 10 High 1.5-8.5 Lymph # 1.7 10 Normal 1.5-5.0 [place] # 0.9 10 High 0.0-0.8 Eos # 0.0 10 Normal 0.0-0.5 Baso # 0.0 10 Normal 0.0-0.2 Liver Profile 12/18/2020 [facility] Outpatient Testi ng (Registration) [address] [place] [address] [phone] Ast/Sgot 21 U/L Normal 7-37 Alt/SGPT 30 U/L Normal 12-78 Alkaline Phosphatase 103 U/L Normal 45-117 Bilirubin,Total 0.2 mg/dL Normal 0.2-1.0 Bilirubin,Direct < 0.1 mg/dL Normal 0.0-0.2 Total Protein 7.6 GM/DL Normal 6.4-8.2 Albumin 3.1 GM/DL Low 3.2-5.2 Albumin/Globulin Ratio 0.7 Low 1.2-2.2 Basic Metabolic Profile 12/18/2020 [facility] Outpatient T esting (Registration) [address] [place] [address] [phone] Glucose, Fasting 115 mg/dL High 70-100 Blood Urea Nitrogen 10 mg/dL Normal 7-18 Creatinine For GFR 0.84 mg/dL Normal 0.55-1.30 Glomerular Filtration Rate > 60.0 Normal >60 1 Sodium Level 137 mEq/L Normal 136-145 Potassium Serum 4.3 mEq/L Normal 3.5-5.1 Chloride Level 106 mEq/L Normal 98-107 Carbon Dioxide Level 25 mEq/L Normal 21-32 Anion Gap 6 mEq/L Low 8-16 Calcium Level 9.3 mg/dL Normal 8.5-10.1 Laboratory test finding 12/18/2020 [facility] Outpatient T esting (Registration) [address] [place] [address] [phone] Lipase 43 U/L Low 73-393 2 HCG, Serum Quantitative 14753 MIU/ML Normal 3 Thyroid Stimulating Hormone 1.480 uIU/ML Normal 0.358-3.740 4 1 Units are mL/min/1.73 m2 Chronic Kidney Disease Staging per NKF: Stage I & II GFR >=60 Normal to Mildly Decreased Stage III GFR 30-59 Moderately Decreased Stage IV GFR 15-29 Severely Decreased Stage V GFR <15 Very Little GFR Left ESRD GFR <15 on KNIFE SETTER 2 7] @---END MOBILAB COMMEN T--- 3 GESTATIONAL AGE APPROXIMATE HCG RANGE (MIU/ML) - 0.2-1 WEEK 5-50 1-2 WEEKS 50-500 2-3 WEEKS 100-5,000 3-4 WEEKS 500-10,000 4-5 WEEKS 1,000-50,000 5-6 WEEKS 10,000-100,000 6-8 WEEKS 15,000-200,000 2-3 MONTHS 10,000-100,00 0 NON FEMALES LESS THAN 3.0 Patient samples may contain human heterophilic antibodies that could react with immunoassays to give falsely elevated or depressed results. This assay has been designed to minimize interference from heterophilic antibodies. Elevated hCG levels have also been associated with trophoblastic disease and nontrophoblastic neoplasms. The possibility of having these diseases should be considered before a diagnosis of is made. This test is not intended for use as a surrogate marker for aiding in the diagnosis or monitoring the treatment of cancer patients. H-care methodology. 4 7] @---END MOBILAB COMMEN T--- Procedures Date Code Description Status 06/15/2021 46001 Office/Outpatient Established w [facility] 20-29 Min Completed 02/06/2021 35579 Office/Outpatient Established w [facility] 20-29 Min Completed Medical Devices Description No Information Available Encounters Type Date Location Provider Dx Diagnosis Office Visit 06/15/2021 10:00a [facility] Edward Winkler D.O. 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 02/06/2021 I10 Essential (primary) hypertension Estefani Tyson.OCherelle 02/06/2021 Z96.41 Presence of insulin pump (economic analyst al) (internal) Estefani Brown.OCherelle 02/06/2021 E10.65 Type 1 diabetes mellitus with hy perglycemia Augusta BrownOCherelle 02/06/2021 Z79.4 buttermaker helper (current) use of insul in Estefani Tyson.O. 02/06/2021 Z79.899 Other terminal make up operator (current) drug t herapy Estefani Tyson.OCherelle 02/06/2021 Z3A.21 21 weeks gestation of Raisa Winkler D.O. Plan of Treatment Future Appointment(s):* 07/18/2021 11:00 am - Raisa Winkler D.O. at [facility] * 09/13/2021 3:30 pm - Raisa Winkler D.O. at [facility] Functional Status Description No Information Available Mental Status Description No Information Available Referrals Refer to Reason for Referral Status Appt Date [facility] This is a 26 year old fema taj who suffered the loss of her child who was born still on 03/26/21. I have increased her prozac from 20 mg to 40 mg but she would benefit greatly for CBT. Please evaluate and treat. Sent [facility] [place] [address] [phone]
--- OUTSIDE RECORDS SUMMARY | 2021-06-25 13:52 | CCD ---
Author Author [facility] Organization [facility] Address Unknown Phone Unavailable Care Team Providers Care Used Car Lot Attendant Name Role Phone TEOPIA Unavailable Unavailable Uzair RIVERO MD Unavailable Unavailable Uzair RIVERO MD Unavailable Unavailable Uzair RIVERO MD Unavailable Unavailable Uzair RIVERO MD Unavailable Unavailable Uzair RIVERO MD Unavailable Unavailable Uzair RIVERO MD Unavailable Unavailable Uzair RIVERO MD Unavailable Unavailable Uzair RIVERO MD Unavailable Unavailable Uzair RIVERO MD Unavailable Unavailable Uzair RIVERO MD Unavailable Unavailable Uzair RIVERO MD Unavailable Unavailable Uzair RIVERO MD Unavailable Unavailable Uzair RIVERO MD Unavailable Unavailable Uzair RIVERO MD Unavailable Unavailable Uzair RIVERO MD Unavailable Unavailable Uzair RIVERO MD Unavailable Unavailable Uzair RIVERO MD Unavailable Unavailable Uzair RIVERO MD Unavailable Unavailable Uzair RIVERO MD Unavailable Unavailable Uzair RIVERO MD Unavailable Unavailable Uzair RIVERO MD Unavailable Unavailable Uzair RIVERO MD Unavailable Unavailable Uzair RIVERO MD Unavailable Unavailable Uzair RIVERO MD Unavailable Unavailable Uzair RIVERO MD Unavailable Unavailable Uzair RIVERO MD Unavailable Unavailable Uzair RIVERO MD Unavailable Unavailable Uzair RIVERO MD Unavailable Unavailable Uzair RIVERO MD Unavailable Unavailable Uzair RIVERO MD Unavailable Unavailable Uzair RIVERO MD Unavailable Unavailable Uzair RIVERO MD Unavailable Unavailable Uzair RIVERO MD Unavailable Unavailable MATUzair TOPETE MD Unavailable Unavailable MATUzair TOPETE MD Unavailable Unavailable Uzair RIVERO MD Unavailable Unavailable Uzair RIVERO MD Unavailable Unavailable Uzair RIVERO MD Unavailable Unavailable Uzair RIVERO MD Unavailable Unavailable Uzair RIVERO MD Unavailable Unavailable MATUzair TOPETE MD Unavailable Unavailable MATUzair TOPETE MD Unavailable Unavailable Uzair RIVERO MD Unavailable Unavailable MATUzair TOPETE MD Unavailable Unavailable Uzair RIVERO MD Unavailable Unavailable Uzair RIVERO MD Unavailable Unavailable Uzair RIVERO MD Unavailable Unavailable MATUzair TOPETE MD Unavailable Unavailable MATUzair TOPETE MD Unavailable Unavailable Uzair RIVERO MD Unavailable Unavailable Uzair RIVERO MD Unavailable Unavailable Uzair RIVERO MD Unavailable Unavailable Uzair RIVERO MD Unavailable Unavailable Uzair RIVERO MD Unavailable Unavailable Uzair RIVERO MD Unavailable Unavailable Uzair RIVERO MD Unavailable Unavailable Uzair RIVERO MD Unavailable Unavailable Uzair RIVERO MD Unavailable Unavailable Uzair RIVERO MD Unavailable Unavailable SAMANTHA-KERON, EVELYN DO Unavailable Unavailable SAMANTHA-KERON, EVELYN DO Unavailable Unavailable SAMANTHA-KERON, EVELYN DO Unavailable Unavailable SAMANTHA-KERON, EVELYN DO Unavailable Unavailable SAMANTHA-KERON, EVELYN DO Unavailable Unavailable SAMANTHA-KERON, EVELYN DO Unavailable Unavailable SAMANTHA-KERON, EVELYN DO Unavailable Unavailable SAMANTHA-KERON, EVELYN DO Unavailable Unavailable SAMANTHA-KERON, EVELYN DO Unavailable Unavailable SAMANTHA-KERON, EVELYN DO Unavailable Unavailable SAMANTHA-KERON, EVELYN DO Unavailable Unavailable SAMANTHA-KERON, EVELYN DO Unavailable Unavailable SAMANTHA-KERNO, EVELYN DO Unavailable Unavailable SAMANTHA-KERON, EVELYN DO Unavailable Unavailable SAMANTHA-KERON, EVELYN DO Unavailable Unavailable SAMANTHA-KERON, EVELYN DO Unavailable Unavailable SAMANTHA-KERON, EVELYN DO Unavailable Unavailable SAMANTHA-KERON, EVELYN DO Unavailable Unavailable SAMANTHA-KERON, EVELYN DO Unavailable Unavailable SAMANTHA-KERON, EVELYN DO Unavailable Unavailable SAMANTHA-KERON, EVELYN DO Unavailable Unavailable SAMANTHA-KERON, EVELYN DO Unavailable Unavailable SAMANTHA-KERON, EVELYN DO Unavailable Unavailable SAMANTHA-KERON, EVELYN DO Unavailable Unavailable SAMANTHA-KERON, EVELYN DO Unavailable Unavailable SAMANTHA-KERON, EVELYN DO Unavailable Unavailable SAMANTHA-KERON, EVELYN DO Unavailable Unavailable SAMANTHA-KERON, EVELYN DO Unavailable Unavailable SAMANTHA-KERON, EVELYN DO Unavailable Unavailable SAMANTHA-KERON, EVELYN DO Unavailable Unavailable SAMANTHA-KERON, EVELYN DO Unavailable Unavailable SAMANTHA-KERON, EVELYN DO Unavailable Unavailable SAMANTHA-KERON, EVELYN DO Unavailable Unavailable SAMANTHA-KERON, EVELYN DO Unavailable Unavailable SAMANTHA-KERON, EVELYN DO Unavailable Unavailable SAMANTHA-KERON, EVELYN DO Unavailable Unavailable SAMANTHA-KERON, EVELYN DO Unavailable Unavailable SAMANTHA-KERON, EVELYN DO Unavailable Unavailable SAMANTHA-KERON, EVELYN DO Unavailable Unavailable SAMANTHA-KERON, EVELYN DO Unavailable Unavailable SAMANTHA-KERON, VEELYN DO Unavailable Unavailable SAMANTHA-KERON, EVELYN DO Unavailable Unavailable SAMANTHA-KERON, EVELYN DO Unavailable Unavailable SAMANTHA-KERON, EVELYN DO Unavailable Unavailable SAMANTHA-KERON, EVELYN DO Unavailable Unavailable SAMANTHA-KERON, EVELYN DO Unavailable Unavailable SAMANTHA-KERON, EVELYN DO Unavailable Unavailable SAMANTHA-KERON, EVELYN DO Unavailable Unavailable SAMANTHA-KERON, EVELYN DO Unavailable Unavailable SAMANTHA-KERON, EVELYN DO Unavailable Unavailable SAMANTHA-KERON, EVELYN DO Unavailable Unavailable SAMANTHA-KERON, EVELYN DO Unavailable Unavailable SAMANTHA-KERON, EVELYN DO Unavailable Unavailable SAMANTHA-KERON, EVELYN DO Unavailable Unavailable SAMANTHA-KERON, EVELYN DO Unavailable Unavailable SAMANTHA-KERON, EVELYN DO Unavailable Unavailable SAMANTHA-KERON, EVELYN DO Unavailable Unavailable SAMANTHA-KERON, EVELYN DO Unavailable Unavailable SAMANTHA-KERON, EVELYN DO Unavailable Unavailable SAMANTHA-KERON, EVELYN DO Unavailable Unavailable SAMANTHA-KERON, EVELYN DO Unavailable Unavailable SAMANTHA-KERON, EVELYN DO Unavailable Unavailable SAMANTHA-KERON, EVELYN DO Unavailable Unavailable SAMANTHA-KERON, EVELYN DO Unavailable Unavailable SAMANTHA-KERON, EVELYN DO Unavailable Unavailable SAMANTHA-KERON, EVELYN DO Unavailable Unavailable SAMANTHA-KERON, EVELYN DO Unavailable Unavailable SAMANTHA-KERON, EVELYN DO Unavailable Unavailable SAMANTHA-KERON, EVELYN DO Unavailable Unavailable SAMANTHA-KERON, EVELYN DO Unavailable Unavailable SAMANTHA-KERON, EVELYN DO Unavailable Unavailable SAMANTHA-KERON, EVELYN DO Unavailable Unavailable SAMANTHA-KERON, EVELYN DO Unavailable Unavailable SAMANTHA-KERON, EVELYN DO Unavailable Unavailable SAMANTHA-KERON, EVELYN DO Unavailable Unavailable SAMANTHA-KERON, EVELYN DO Unavailable Unavailable SAMANTHA-KERON, EVELYN DO Unavailable Unavailable SAMANTHA-KERON, EVELYN DO Unavailable Unavailable SAMANTHA-KERON, EVELYN DO Unavailable Unavailable SAMANTHA-KERON, EVELYN DO Unavailable Unavailable SAMANTHA-KERON, EVELYN DO Unavailable Unavailable SAMANTHA-KERON, EVELYN DO Unavailable Unavailable SAMANTHA-KERON, EVELYN DO Unavailable Unavailable SAMANTHA-KERON, EVELYN DO Unavailable Unavailable CARISSIMI, A VIANEY CNM Unavailable Unavailable CARISSIMI, A VIANEY CNM Unavailable Unavailable CARISSIMI, A VIANEY CNM Unavailable Unavailable CARISSIMI, A VIANEY CNM Unavailable Unavailable CARISSIMI, A VIANEY CNM Unavailable Unavailable CARISSIMI, A VIANEY CNM Unavailable Unavailable CARISSIMI, A VIANEY CNM Unavailable Unavailable CARISSIMI, A VIANEY CNM Unavailable Unavailable CARISSIMI, A VIANEY CNM Unavailable Unavailable CARISSIMI, A VIANEY CNM Unavailable Unavailable CARISSIMI, A VIANEY CNM Unavailable Unavailable CARISSIMI, A VIANEY CNM Unavailable Unavailable CARISSIMI, A VIANEY CNM Unavailable Unavailable CARISSIMI, A VIANEY CNM Unavailable Unavailable CARISSIMI, A VIANEY CNM Unavailable Unavailable CARISSIMI, A VIANEY CNM Unavailable Unavailable CARISSIMI, A VIANEY CNM Unavailable Unavailable CARISSIMI, A VIANEY CNM Unavailable Unavailable CARISSIMI, A VIANEY CNM Unavailable Unavailable CARISSIMI, A VIANEY CNM Unavailable Unavailable [place], Josiane PA Unavailable Unavailable Tricia, Josiane PA Unavailable Unavailable Tricia, Josiane PA Unavailable Unavailable Tricia, Josiane PA Unavailable Unavailable [place], Josiane PA Unavailable Unavailable Tricia, Josiane PA Unavailable Unavailable Tricia, Josiane PA Unavailable Unavailable [place], Josiane PA Unavailable Unavailable Tricia, Josiane PA Unavailable Unavailable [place], Josiane PA Unavailable Unavailable Tricia, Josiaen PA Unavailable Unavailable Tricia, Josiane PA Unavailable Unavailable Tricia, Josiane PA Unavailable Unavailable [place], Josiane PA Unavailable Unavailable [place], Josiane PA Unavailable Unavailable [place], Josiane PA Unavailable Unavailable Tricia, Josiane PA Unavailable Unavailable Tricia, Josiane PA Unavailable Unavailable [place], Josiane PA Unavailable Unavailable [place], Josiane PA Unavailable Unavailable Tricia, Josiane PA Unavailable Unavailable Tricia, Josiane PA Unavailable Unavailable Tricia, Josiane PA Unavailable Unavailable [place], Josiane PA Unavailable Unavailable Tricia, Josiane PA Unavailable Unavailable [place], Josiane PA Unavailable Unavailable [place], Josiane PA Unavailable Unavailable [place], Josiane PA Unavailable Unavailable Tricia, Josiane PA Unavailable Unavailable Tricia, Josiane PA Unavailable Unavailable [place], Josiane PA Unavailable Unavailable [place], Josiane PA Unavailable Unavailable Tricia, Josiane PA Unavailable Unavailable Tricia, Josiane PA Unavailable Unavailable [place], Josiane PA Unavailable Unavailable An, Autumn ENROBER TENDER Unavailable Unavailable An, Autumn ENROBER TENDER Unavailable Unavailable An, Autumn ENROBER TENDER Unavailable Unavailable An, Autumn ENROBER TENDER Unavailable Unavailable An, Autumn ENROBER TENDER Unavailable Unavailable An, Autumn ENROBER TENDER Unavailable Unavailable An, Autumn ENROBER TENDER Unavailable Unavailable An, Autumn ENROBER TENDER Unavailable Unavailable An, Autumn ENROBER TENDER Unavailable Unavailable An, Autumn ENROBER TENDER Unavailable Unavailable An, Autumn ENROBER TENDER Unavailable Unavailable An, Autumn ENROBER TENDER Unavailable Unavailable An, Autumn ENROBER TENDER Unavailable Unavailable VYAS, Hugo DILLON Unavailable Unavailable LIZETTE, L INGA WHNP-BC Unavailable Unavailable LIZETTE, L INGA WHNP-BC Unavailable Unavailable LIZETTE, L INGA WHNP-BC Unavailable Unavailable LIZETTE, L INGA WHNP-BC Unavailable Unavailable LIZETTE, L INGA WHNP-BC Unavailable Unavailable LIZETTE, L INGA WHNP-BC Unavailable Unavailable LIZETTE, L INGA WHNP-BC Unavailable Unavailable LIZETTE, L INGA WHNP-BC Unavailable Unavailable LIZETTE, L INGA WHNP-BC Unavailable Unavailable LIZETTE, L INGA WHNP-BC Unavailable Unavailable LIZETTE, L INGA WHNP-BC Unavailable Unavailable LIZETTE, L INGA WHNP-BC Unavailable Unavailable Uzair RIVERO MD Unavailable Unavailable Uzair RIVERO MD Unavailable Unavailable Uzair RIVERO MD Unavailable Unavailable Uzair RIVERO MD Unavailable Unavailable Uzair RIVERO MD Unavailable Unavailable Uzair RIVERO MD Unavailable Unavailable Uzair RIVERO MD Unavailable Unavailable Uzair RIVERO MD Unavailable Unavailable Uzair RIVERO MD Unavailable Unavailable Uzair RIVERO MD Unavailable Unavailable Uzair RIVERO MD Unavailable Unavailable Uziar RIVERO MD Unavailable Unavailable Uzair RIVERO MD Unavailable Unavailable Uzair RIVERO MD Unavailable Unavailable Uzair RIVERO MD Unavailable Unavailable Uzair RIVERO MD Unavailable Unavailable Uzair RIVERO MD Unavailable Unavailable Uzair RIVERO MD Unavailable Unavailable Uzair RIVERO MD Unavailable Unavailable Uzair RIVERO MD Unavailable Unavailable Uzair RIVERO MD Unavailable Unavailable Uzair RIVERO MD Unavailable Unavailable Uzair RIVERO MD Unavailable Unavailable Uzair RIVERO MD Unavailable Unavailable Uzair RIVERO MD Unavailable Unavailable Uzair RIVERO MD Unavailable Unavailable Uzair RIVERO MD Unavailable Unavailable Uzair RIVERO MD Unavailable Unavailable Uzair RIVERO MD Unavailable Unavailable Uzair RIVERO MD Unavailable Unavailable Uzair RIVERO MD Unavailable Unavailable Uzair RIVERO MD Unavailable Unavailable Uzair RIVERO MD Unavailable Unavailable Uzair RIVERO MD Unavailable Unavailable Uzair RIVERO MD Unavailable Unavailable Uzair RIVERO MD Unavailable Unavailable Uzair RIVERO MD Unavailable Unavailable Uzair RIVERO MD Unavailable Unavailable Uzair RIVERO MD Unavailable Unavailable Uzair RIVERO MD Unavailable Unavailable Uzair RIVERO MD Unavailable Unavailable Uazir RIVERO MD Unavailable Unavailable Uzair RIVERO MD Unavailable Unavailable Uzair RIVERO MD Unavailable Unavailable Uzair RIVERO MD Unavailable Unavailable Uzair RIVERO MD Unavailable Unavailable Uzair RIVERO MD Unavailable Unavailable Uzair RIVERO MD Unavailable Unavailable Uzair RIVERO MD Unavailable Unavailable Uzair RIVERO MD Unavailable Unavailable Uzair RIVERO MD Unavailable Unavailable Uzair RIVERO MD Unavailable Unavailable Uzair RIVERO MD Unavailable Unavailable Uzair RIVERO MD Unavailable Unavailable Uzair RIVERO MD Unavailable Unavailable Uzair RIVERO MD Unavailable Unavailable Uzair RIVERO MD Unavailable Unavailable Uzair RIVERO MD Unavailable Unavailable Uzair RIVERO MD Unavailable Unavailable [place], Maryse Unavailable [place], Maryse Unavailable RETA BAIRD Unavailable Unavailable Josef JAMESON MD Unavailable Unavailable Josef JAMESON MD Unavailable Unavailable Josef JAMESON MD Unavailable Unavailable Josef JAMESON MD Unavailable Unavailable Josef JAMESON MD Unavailable Unavailable Josef JAMESON MD Unavailable Unavailable Josef JAMESON MD Unavailable Unavailable Josef JAMESON MD Unavailable Unavailable BUTLER, G EDWARD RPA Unavailable Unavailable BUTLER, G EDWARD RPA Unavailable Unavailable BUTLER, G EDWARD RPA Unavailable Unavailable BUTLER, G EDWARD RPA Unavailable Unavailable BUTLER, G EDWARD RPA Unavailable Unavailable BUTLER, G EDWARD RPA Unavailable Unavailable BUTLER, G EDWARD RPA Unavailable Unavailable BTULER, G EDWARD RPA Unavailable Unavailable BUTLER, G EDWARD RPA Unavailable Unavailable BUTLER, G EDWARD RPA Unavailable Unavailable BUTLER, G EDWARD RPA Unavailable Unavailable BUTLER, G EDWARD RPA Unavailable Unavailable BUTLER, G EDWARD RPA Unavailable Unavailable BUTLER, G EDWARD RPA Unavailable Unavailable BUTLER, G EDWARD RPA Unavailable Unavailable BUTLER, G EDWARD RPA Unavailable Unavailable BUTLER, G EDWARD RPA Unavailable Unavailable BUTLER, G EDWARD RPA Unavailable Unavailable BUTLER, G EDWARD RPA Unavailable Unavailable BUTLER, G EDWARD RPA Unavailable Unavailable BUTLER, G EDWARD RPA Unavailable Unavailable BUTLER, G EDWARD RPA Unavailable Unavailable BUTLER, G EDWARD RPA Unavailable Unavailable BUTLER, G EDWARD RPA Unavailable Unavailable BUTLER, G EDWARD RPA Unavailable Unavailable BUTLER, G EDWARD RPA Unavailable Unavailable BUTLER, G EDWARD RPA Unavailable Unavailable BUTLER, G EDWARD RPA Unavailable Unavailable BUTLER, G EDWARD RPA Unavailable Unavailable BUTLER, G EDWARD RPA Unavailable Unavailable BUTLER, G EDWARD RPA Unavailable Unavailable BUTLER, G EDWARD RPA Unavailable Unavailable BUTLER, G EDWARD RPA Unavailable Unavailable BUTLER, G EDWARD RPA Unavailable Unavailable BUTLER, G EDWARD RPA Unavailable Unavailable BUTLER, G EDWARD RPA Unavailable Unavailable BUTLER, G EDWARD RPA Unavailable Unavailable O'baron, A Edward PA Unavailable Unavailable O'baron, A Edward PA Unavailable Unavailable O'baron, A Edward PA Unavailable Unavailable O'baron, A Edward PA Unavailable Unavailable O'baron, A Edward PA Unavailable Unavailable O'baron, A Edward PA Unavailable Unavailable O'baron, A Edward PA Unavailable Unavailable O'baron, A Edward PA Unavailable Unavailable O'baron, A Edward PA Unavailable Unavailable O'baron, A Edward PA Unavailable Unavailable O'baron, A Edward PA Unavailable Unavailable O'baron, A Edward PA Unavailable Unavailable O'baron, A Edward PA Unavailable Unavailable O'baron, A Edward PA Unavailable Unavailable O'baron, A Edward PA Unavailable Unavailable O'baron, A Edward PA Unavailable Unavailable O'baron, A Edward PA Unavailable Unavailable O'baron, A Edward PA Unavailable Unavailable O'baron, A Edward PA Unavailable Unavailable O'baron, A Edward PA Unavailable Unavailable O'baron, A Edward PA Unavailable Unavailable O'baron, A Edward PA Unavailable Unavailable O'baron, A Edward PA Unavailable Unavailable O'baron, A Edward PA Unavailable Unavailable O'baron, A Edward PA Unavailable Unavailable O'baron, A Edward PA Unavailable Unavailable O'baron, A Edward PA Unavailable Unavailable O'baron, A Edward PA Unavailable Unavailable O'baron, A Edward PA Unavailable Unavailable O'baron, A Edward PA Unavailable Unavailable O'baron, A Edward PA Unavailable Unavailable O'baron, A Edward PA Unavailable Unavailable O'baron, A Edward PA Unavailable Unavailable Terri GOODMAN JOSIANE ENROBER TENDER Unavailable Unavailable Terri GOODMAN JOSIANE ENROBER TENDER Unavailable Unavailable REX, C JOSIANE ENROBER TENDER Unavailable Unavailable REX, C JOSIANE ENROBER TENDER Unavailable Unavailable REX, C JOSIANE ENROBER TENDER Unavailable Unavailable REX, C JOSIANE ENROBER TENDER Unavailable Unavailable REX, C JOSIANE ENROBER TENDER Unavailable Unavailable REX C JOSIANE ENROBER TENDER Unavailable Unavailable REX, C JOSIANE ENROBER TENDER Unavailable Unavailable REX, C JOSIANE ENROBER TENDER Unavailable Unavailable REX, C JOSIANE ENROBER TENDER Unavailable Unavailable REX, C JOSIANE ENROBER TENDER Unavailable Unavailable REX, C JOSIANE ENROBER TENDER Unavailable Unavailable REX, C JOSIANE ENROBER TENDER Unavailable Unavailable REX, C JOSIANE ENROBER TENDER Unavailable Unavailable REX, C JOSIANE ENROBER TENDER Unavailable Unavailable REX, C JOSIANE ENROBER TENDER Unavailable Unavailable REX, C JOSIANE ENROBER TENDER Unavailable Unavailable REX, C JOSIANE ENROBER TENDER Unavailable Unavailable REX, C JOSIANE ENROBER TENDER Unavailable Unavailable REX, C JOSIANE ENROBER TENDER Unavailable Unavailable REX, C JOSIANE ENROBER TENDER Unavailable Unavailable REX, C JOSIANE ENROBER TENDER Unavailable Unavailable REX, C JOSIANE ENROBER TENDER Unavailable Unavailable REX, C JOSIANE ENROBER TENDER Unavailable Unavailable REX, C JOSIANE ENROBER TENDER Unavailable Unavailable [id number], [id number] Unavailable [id number], [id number] Unavailable Kutahyalioglu, Maria De Jesus Unavailable Unavailable Kutahyalioglu, Maria De Jesus Unavailable Unavailable Kutahyalioglu, Maria De Jesus Unavailable Unavailable Kutahyalioglu, Maria De Jesus Unavailable Unavailable Kutahyalioglu, Maria De Jesus Unavailable Unavailable Kutahyalioglu, Maria De Jesus Unavailable Unavailable Kutahyalioglu, Maria De Jesus Unavailable Unavailable Kutahyalioglu, Maria De Jesus Unavailable Unavailable Kutahyalioglu, Maria De Jesus Unavailable Unavailable Kutahyalioglu, Maria De Jesus Unavailable Unavailable Kutahyalioglu, Maria De Jesus Unavailable Unavailable Kutahyalioglu, Maria De Jesus Unavailable Unavailable Kutahyalioglu, Maria De Jesus Unavailable Unavailable Kutahyalioglu, Maria De Jesus Unavailable Unavailable Kutahyalioglu, Maria De Jesus Unavailable Unavailable Kutahyalioglu, Maria De Jesus Unavailable Unavailable Kutahyalioglu, Maria De Jesus Unavailable Unavailable Kutahyalioglu, Maria De Jesus Unavailable Unavailable Kutahyalioglu, Maria De Jesus Unavailable Unavailable Kutahyalioglu, Maria De Jesus Unavailable Unavailable Kutahyalioglu, Maria De Jesus Unavailable Unavailable Kutahyalioglu, Maria De Jesus Unavailable Unavailable Kutahyalioglu, Maria De Jesus Unavailable Unavailable Kutahyalioglu, Maria De Jesus Unavailable Unavailable Kutahyalioglu, Maria De Jesus Unavailable Unavailable Kutahyalioglu, Maria De Jesus Unavailable Unavailable Re-disclosure Warning The records that you are about to access may contain information from federally-assisted alcohol or drug abuse programs. If such information is present, then the following federally mandated warning applies: This information has been disclosed to you from records protected by federal confidentiality rules (42 CFR part 2). The federal rules prohibit you from making any further disclosure of this information unless further disclosure is expressly permitted by the written consent of the person to whom it pertains or as otherwise permitted by 42 CFR part 2. A general authorization for the release of medical or other information is NOT sufficient for this purpose. The Federal rules restrict any use of the information to criminally investigate or prosecute any alcohol or drug abuse patient.The records that you are about to access may contain highly sensitive health information, the redisclosure of which is protected by Article 27-F of the [facility] Public Health law. If you continue you may have access to information: Regarding HIV / AIDS; Provided by facilities licensed or operated by the [facility] Office of Mental Health; or Provided by the [facility] Office for People With Developmental Disabilities. If such information is present, then the following [facility] mandated warning applies: This information has been disclosed to you from confidential records which are protected by state law. State law prohibits you from making any further disclosure of this information without the specific written consent of the person to whom it pertains, or as otherwise permitted by law. Any unauthorized further disclosure in violation of state law may result in a fine or intermediate sentence or both. A general authorization for the release of medical or other information is NOT sufficient authorization for further disc losure. Allergies and Adverse Reactions Type Description Substance Reaction Status Data Source(s ) Propensity to adverse reactions NO KNOWN ALLERGIES NO KNOWN ALLERGIES [facility] Environmental Allergy ENVIRONMENTAL [facility] Family History Family Member Name Family Member Gender Family Member Status Date o f Status Description Data Source(s) Unknown Unknown Problem MEDENT ([facility] Unknown Unknown Problem [facility] ([facility] Unknown Female Problem MEDENT ([facility]) Encounters Encounter Providers Location Date Indications Data Source(s ) Outpatient Attender: Josiane MEDEROSeferrer: EVELYN BONILLA DO 06/26/2021 12:00:00 AM [facility] Outpatient Attender: EVELYN FRASER DO [facility] 06/15/2021 10:00:00 AM EDT MEDENT ([facility]) Outpatient Attender: VIANEY DOVE 05/23/2021 12:0 0:00 AM [facility] Outpatient 05/23/2021 12:00:00 AM [facility] Outpatient 05/23/2021 12:00:00 AM [facility] Outpatient 05/05/2021 12:00:00 AM [facility] Outpatient 05/05/2021 12:00:00 AM [facility] Outpatient 05/05/2021 12:00:00 AM [facility] Outpatient Attender: VIANEY AYSEMEHRAN CNM 05/02/2021 12:0 0:00 AM [facility] Outpatient 05/02/2021 12:00:00 AM [facility] Outpatient 05/02/2021 12:00:00 AM [facility] Outpatient 04/28/2021 12:00:00 AM [facility] Outpatient 04/28/2021 12:00:00 AM [facility] Outpatient 04/28/2021 12:00:00 AM [facility] Outpatient 04/28/2021 12:00:00 AM [facility] Outpatient 04/26/2021 12:00:00 AM [facility] Outpatient Attender: JOSIANE GOODMAN NP 04/26/2021 12:00:0 0 AM [facility] Outpatient 04/26/2021 12:00:00 AM [facility] Outpatient 04/18/2021 12:00:00 AM [facility] Outpatient Attender: VIANEY [facility] 04/18/2021 12:0 0:00 AM [facility] Outpatient 04/18/2021 12:00:00 AM [facility] Outpatient Attender: DILLON VYAS -[id number] 04/17/2021 11:19:53 [facility] [facility] Attender: INGA OLVERA-BCReferrer: Camron ESPINOZA -XXUCPERI 04/17/2021 12:00:00 AM [facility] - 04/17/2021 10:31:58 AM [facility] Outpatient Attender: INGA OLVERA-BC 04/13/2021 12:00:0 0 AM [facility] Outpatient Attender: JOSIANE GOODMAN NP 04/11/2021 [facility] 12:00:00 AM [facility] Outpatient 04/11/2021 12:00:00 AM [facility] Outpatient Attender: VIANEY METCALF [facility] 04/07/2021 12:0 0:00 AM [facility] Outpatient Attender: JOSIANE GOODMAN NP 04/05/2021 12:00:0 0 AM [facility] Outpatient Attender: JUSTIN BUTLER RPA 03/31 08:24:39 PM EDT - 03/31/2021 08:49:59 PM EDT [facility] ([facility] ) Outpatient Attender: VIANEY METCALF CN 03/28/2021 12:0 0:00 AM [facility] Outpatient 03/28/2021 12:00:00 AM [facility] Inpatient Attender: ELOISE JAMESON MD 03/24/2021 11:04:19 PM EDT [facility] [place] [facility] Inpatient Attender: CHRIS RIVERO MDAdmitter: CHRIS GRANADOS MD 03/24/2021 06:54:00 PM EDT - 03/27/2021 12:56:00 PM EDT [facility] Patient discharged. Outpatient Attender: INGA OLVERA-BCReferrer: Camron ESPINOZA [id number] 03/23/2021 12:00:00 AM EDT - 03/23/2021 01:23:47 PM ED T Supervision of high risk , unspecified, unspecified trimester [facility] Supervision of high risk , unsp ecified, unspecified trimester Outpatient Attender: PIA BRUCE 03/23/2021 12:00:00 AM [facility] Outpatient Attender: Maryse Tang rosa: [id number] [id number]: CHRIS RIVERO MD 03/23/2021 12:00:00 AM EDT [facility] Outpatient Attender: JOSIANE GOODMAN NPReferrer: Josiane ESPINOZA 03/14/2021 12:00:00 AM [facility] Outpatient Attender: Maryse Tangender: [id number] [facility]_9359 03/14/2021 12:00:00 AM [facility] Outpatient 03/14/2021 12:00:00 AM [facility] Outpatient Attender: JOSIANE GOODMAN ENROBER TENDER Admitter: JOSIANE GOODMAN NPReferrer: Josiane ESPINOZA [id number] 03/03/2021 12:00:00 AM EDT - 03/03/2021 03:29:22 PM [facility] Outpatient Attender: RETA OLI 03/03/2021 12:00:00 AM E [facility] Outpatient Attender: VIANEY METCALF CNMReferrer: Darron ESPINOZA 02/28/2021 12:00:00 AM [facility] Outpatient 02/28/2021 12:00:00 AM [facility] Outpatient Attender: VIANEY METCALF CNMReferrer: Josiane ESPINOZA [id number] 02/14/2021 12:00:00 AM EDT - 02/14/2021 01:48:50 PM [facility] [id number] [facility]ender: Maryse LauReferrer: CHRIS RIVERO MD [id number] 02/14/2021 12:00:00 AM EDT [facility] Unknown [address] [facility] [facility], [facility] [address] 02/14/2021 12:00:00 AM EDT [facility] ([facility]) <td><content [id number]">Review</content>
</td><td><conten t styleCode="xSecondary">08-Feb-2021 11:46 </content>
<content styleCode="xSecondary">[facility]</content>
</td><td></td>Review [facility] 02/08/2021 11:46:33 AM EDT - 02/08/2021 11:53:23 AM EDT [employer] ([facility]) Outpatient Attender: EVELYN FRASER DO [facility] 02/06/2021 09:20:00 AM EDT [facility] ([facility]) Outpatient Attender: CHRIS WHYTEeferrer: Kaleb ESPINOZA [id number] 01/31/2021 12:00:00 AM EDT - 01/31/2021 04:31:44 PM [facility] Outpatient Attender: PIA BRUCEReferrer: Josiane Gerardo A 01/31/2021 12:00:00 AM [facility] ( COBMD) WCenter Complicated OB for MD Only [address] [place] [address] 01/12/2021 12:00:00 AM EDT eCW1 ([facility]) ( COBMD) WCenter Complicated OB for MD Only [address] [place] [address] 12/29/2020 12:00:00 AM EDT eCW1 ([facility]) Unknown [address] [facility] [address] 12/28/2020 12:00:00 AM EDT eCW1 ([facility]) Outpatient Attender: Maria De Jesus Keith 12/26/2020 12:00: 00 AM [facility] ( COB) WCenter Complicated OB [address] [place] [address] 12/22/2020 12:00:00 AM EDT eCW1 ([facility]) ( COBMD) WCenter Complicated OB for MD Only [address] [place] [address] 12/16/2020 12:00:00 AM EDT eCW1 ([facility]) Unknown [address] [facility] [address] 12/07/2020 12:00:00 AM EDT eCW1 ([facility]) Unknown [address] [facility] [address] 11/30/2020 12:00:00 AM EDT eCW1 ([facility]) (WC ESTOB) WCenter Est OB [address] [place] [address] 11/30/2020 12:00:00 AM EDT eCW1 ([facility]) Outpatient Attender: EVELYN FRASER [facility] 11/07/2020 10:40:00 AM EDT [facility] ([facility]) Outpatient Attender: Josiane ESPINOZA [id number] 12:00:00 AM EST Type 1 diabetes mellitus with hyperglycemia [facility] Type 1 diabetes mellitus with hyperglyce candice Outpatient Attender: EVELYN FRASER DO [facility] 09/12/2020 02:40:00 PM EST [facility] ([facility]) Outpatient [address] [facility] [address] 09/06/2020 12:00:00 AM EST eCW1 ([facility]) Outpatient Attender: EVELYN FRASER DO [facility] 08/18/2020 10:30:00 AM EST [facility] ([facility]) Outpatient Attender: EVELYN FRASER [facility] 08/01/2020 09:20:00 AM EST [facility] ([facility]) Outpatient Attender: Autumn lyons 07/27/2020 04:20:00 PM EST [facility] ([facility]) Outpatient Attender: Edward ESPINOZA [facility] 07/25/2020 03:10:00 PM EST [facility] ([facility]) Outpatient Attender: EVELYN FRASER DO [facility] 07/01/2020 09:20:00 AM EST [facility] ([facility]) Outpatient Attender: Josiane ESPINOZA [id number] 12:00:00 AM EST - 06/24/2020 12:00:00 AM EST parts counterman (current) use of insulin [facility] jail (current) use of insulin Immunizations Vaccine Date Status Description Data Source(s) COVID-19 VACCINE Moderna 10/27/2020 12:00:00 AM EST completed [facility] Vaccine Series Complete: YESThis Data wa s Submitted to [facility] Via [employer]. COVID-19 VACCINE Moderna 09/29/2020 12:00:00 AM EST completed [facility] Vaccine Series Complete: NOThis Data was Submitted to [facility] [employer]. Medications Medication Brand Name Start Date Product Form Dose Route Admi nistrative Instructions Pharmacy Instructions Status Indications Reaction Description Data Source(s) Fluoxetine 40 MG Oral Capsule [Prozac] Prozac 06/15/2021 12:00:00 AM EDT ORAL active [facility] ([facility]) Promethazine Hydrochloride 25 MG Rectal Suppository Pr omethazine HCl 25 MG Promethazine HCl 25 MG 12/28/2020 12:00:00 AM EDT 1.0 {supposito ry_as_needed} active Promethazine HCl 25 MG eCW1 ([facility]) Promethazine Hydrochloride 25 MG Rectal Suppository Pr omethazine HCl 25 MG Promethazine HCl 25 MG 12/28/2020 12:00:00 AM EDT 1.0 {supposito ry_as_needed} active Promethazine HCl 25 MG eCW1 ([facility]) Promethazine Hydrochloride 25 MG Rectal Suppository Pr omethazine HCl 25 MG Promethazine HCl 25 MG 12/28/2020 12:00:00 AM EDT 1.0 {supposito ry_as_needed} active Promethazine HCl 25 MG eCW1 ([facility]) Promethazine Hydrochloride 25 MG Rectal Suppository Pr omethazine HCl 25 MG Promethazine HCl 25 MG 12/28/2020 12:00:00 AM EDT 1.0 {supposito ry_as_needed} active Promethazine HCl 25 MG eCW1 ([facility]) Promethazine Hydrochloride 25 MG Rectal Suppository Pr omethazine HCl 25 MG Promethazine HCl 25 MG 12/28/2020 12:00:00 AM EDT 1.0 {supposito ry_as_needed} active Promethazine HCl 25 MG eCW1 ([facility]) Acetone (Urine) Test In Vitro Strip [id number] 08/23/2020 12:00:00 AM EST active Ketostix, use as dir ected up to 10 times daily for illness or elevated blood sugar over 250 twice in a row, dx E10.65 [facility] 120 ACTUAT Fluticasone propionate 0.11 MG/ACTUAT Meter ed Dose Inhaler [Flovent] Flovent HFA 08/18/2020 12:00:00 AM EST ORAL completed [facility] ([facility]) Ondansetron 4 MG Oral Tablet Ondansetron HCL 07/25/2020 12:00:[address] ORAL active [facility] ([facility]) Meclizine Hydrochloride 12.5 MG Oral Tablet Meclizine HCL 07/25/2020 12:00:00 AM EST ORAL active [facility] ([facility]) Metformin hydrochloride 500 MG Oral Tablet metFORMIN H Cl 500 MG Oral Tablet metFORMIN HCl 500 MG Oral Tablet 06/23/2020 12:00:00 AM EST 500 mg Oral active Take 1 tablet by mouth Two times daily with meals [facility] Pseudoephedrine Hydrochloride 30 MG Oral Tablet Pseudoephedr ine HCL 04/12/2020 12:00:00 AM EDT completed [facility] ([facility]) Flonase Allergy Relief Flonase Allergy Relief 04/11/2020 12:00:00 AM E DT completed [facility] ([facility]) Glucagon 1 MG Injection Glucagon (rDNA) 1 MG Injection Kit (Glucagon Emergency) Glucagon (rDNA) 1 MG Injection Kit (Glucagon Emergency) 03/14/2020 12:00:00 AM EDT aborted Type 1 diabetes mellitus with hyperglycemia For extreme low blood sugar dx E10.65 [facility] Type 1 diabetes mellitus with hyperglyce candice FreeStyle Lite Test In Vitro Strip [id number] 03/14/2020 12:00:00 AM EDT active Type 1 diabetes mellitus with hyperglycem ia Use as instructed to check blood sugar 4 times daily E10.65 [facility] Type 1 diabetes mellitus with hyperglyce candice Insurance Providers Payer name Policy type / Coverage type Policy ID Covered alliance party ID Covered alliance party's relationship to sotomayor Policy Sotomayor Plan Information U [id number] Spouse [id number] U [id number] Self [id number] U [id number] Self [id number] Spouse [id number] SELF PAY ONLY [id number] SP [id number] [employer] [place] O [id number] S [id number] [employer] SASHA O [id number] S [id number] AM-TRUST [facility] [id number] SP [id number] [facility] [id number] SP [id number] [facility] Commercial [id number] Family Dependent [id number] [facility] Commercial [id number] Family Dependent [id number] [facility] Commercial [id number] Family Dependent [id number] [facility] Commercial [id number] Family Dependent [id number] [facility] (2017) Health Maintenance Organization (O) [id number] Family Dependent [id number] [employer] (2018) Health Maintenance Organization (HMO) [id number] Family Dependent [id number] [facility] Commercial [id number] Family Dependent [id number] [facility] Commercial [id number] Family Dependent [id number] [facility] [id number] [facility] [id number] Family Dependent [id number] [facility] [id number] Family Dependent [id number] [facility] [id number] Family Dependent [id number] [facility] [id number] Family Dependent [id number] [facility] [id number] Family Dependent [id number] [facility] [id number] Family Dependent [id number] [facility] [id number] Family Dependent [id number] [facility] [employer] [id number] Family Dependent [id number] [facility] [id number] Family Dependent [facility] [employer] [id number] Family Dependent [facility] [id number] HU2 [id number] [facility]ALTH [facility] JUANITA [id number] HEA [id number] S [id number] ACTIVE DUTY [id number] SP [id number] [facility] [id number] [id number] Problems, Conditions, and Diagnoses Code Display Name Description Problem Type Effective Dates Data Source(s) O09.90 Supervision of high risk , unsp ecified, unspecified trimester Supervision of high risk , unspecified, unspecified trimester Diagnosis 03/23/2021 12:00:00 AM EDT [facility] O10.912 Unspecified pre-existing hyp ertension complicating , second trimester Unspecified pre-existing hypertension co mplicating , second trimester Diagnosis 01/31/2021 04:48:26 PM EDT [facility] N28.9 Disorder of kidney and ureter, unspecifi ed Disorder of kidney and ureter, unspecified Diagnosis 01/31/2021 04:48:03 PM EDT [facility] 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, second trimester related renal disease, second trimester Diagnosis 01/31/2021 04:48:03 PM EDT [facility] O24.312 [id number] Pre-existing diabete s mellitus affecting in second trimester, antepartum Problem 01/26/2021 12:00:00 AM EDT eCW1 ([facility]) O99.212 [id number] Obesity affecting in second tri mester Problem 12/22/2020 12:00:00 AM EDT eCW1 ([facility]) O99.211 Obesity complicating , first tr imester Obesity complicating in first trimester Problem 12/15/2020 12:00:00 AM EDT eCW1 ([facility]) O24.319 Diabetes mellitus in mother complicating , childbirth AND/OR puerperium Pregestational diabetes mellitus, modified White class B Pro blem 11/30/2020 12:00:00 AM EDT eCW1 ([facility]) Z34.80 care Supervision of other normal P roblem 11/30/2020 12:00:00 AM EDT eCW1 ([facility]) Z3A.11 Gestation period, 11 weeks 11 weeks gestation of pregn guillermina Problem 11/30/2020 12:00:00 AM EDT eCW1 ([facility]) Z68.42 [id number] Body mass index [BMI] 45.0-49.9, adult Pr oblem 09/06/2020 12:00:00 AM EST eCW1 ([facility]) N94.10 [id number] Dyspareunia in female Problem 09/06/2020 12: 00:00 AM EST eCW1 ([facility]) E10.22 [id number] Type 1 diabetes mellitus with di abetic chronic kidney disease Problem 09/06/2020 12:00:00 AM EST eCW1 ([facility]) E66.01 [id number] Morbid (severe) obesity due to excess anne ories Problem 09/06/2020 12:00:00 AM EST eCW1 ([facility]) Surgeries/Procedures Procedure Description Date Indications Data Source(s) OFFICE OUTPATIENT VISIT 15 MINUTES 06/15/2021 12:00:00 AM EDT [facility] ([facility]) OFFICE OUTPATIENT VISIT 15 MINUTES 02/06/2021 12:00:00 AM EDT [facility] ([facility]) Omt 7-8 Body Regions 08/01/2020 12:00:00 AM EST [facility] ([facility]) Omt 7-8 Body Regions 07/01/2020 12:00:00 AM EST [facility] ([facility]) VITAMIN D 25 HYDROXY, TOTAL <td>VITAMIN D 25 HYDROXY, TOTAL</td><td>Routine</td><td>06/23/2020 12:04 PM EST</td><td> Type 1 diabetes mellitus with hyperglycemia Vitamin D deficiency</td><td> </td> 06/23/2020 12:04:00 PM EST Vitamin D deficiencyType 1 diabetes mellitus with hype rglycemia [facility] Vitamin D deficiency Type 1 diabetes mellitus with hyperglyce candice THYROID STIMULATING HORMONE TSH <td>TSH</td><td>Routin e</td><td>06/23/2020 12:04 PM EST</td><td> Type 1 diabetes mellitus with hyperglycemia</td><td> </td> 06/23/2020 12:04:00 PM EST Type 1 diabetes mellitus with hyperglycemia [facility] Type 1 diabetes mellitus with hyperglyce candice LIPID PANEL <td>LIPID PANEL</td><td>Rout ine</td><td>06/23/2020 12:04 PM EST</td><td> Type 1 diabetes mellitus with hyperglycemia</td><td> </td> 06/23/2020 12:04:00 PM EST Type 1 diabetes mellitus with hyperglycemia [facility] Type 1 diabetes mellitus with hyperglyce candice POCT GLUCOSE, DOCKED <td>POCT GLUCOSE, DOCKED</td ><td>Routine</td><td>06/23/2020 10:51 AM EST</td><td></td><td> </td> 06/23/2020 10:51:00 AM EST [facility] Results ID Date Data Source [id number] 04/17/2021 11:19:53 AM EDT [facility] Name Value Range Interpretation Code Description Data Tami rce(s) Supporting Document(s) Progress Note [facility] ATBKDu6iNrOAVaXf29/CGZutHNKhu0YfQIzsZMy2SQgdUWOpQ2AbZMF1dN7jINP2KYrJSxGkNkSbJEMy lbm [file] TWoZFo6+o8Bd7pr3Xpb9ZQ/PN4bjtPicOHtup0+O7quTOpMHsqiB24lHMMOF/Jose Ramon/7xkTZMwvFKxsK/rb [file] HBK1BbtcD4FwFFItZyM2XSF2WPM4Yg9kCIINMf4+TWqxpBKfmCwvRYIBWgMyVVN1WXrfTNXYXn8J ID Date Data Source [id number] 04/17/2021 10:40:57 AM EDT [facility] Name Value Range Interpretation Code Description Data Tami rce(s) Supporting Document(s) Progress Note [facility] JYRQNv8iRyMSBrRz80/MTZifOGStq7ZqQTdyJOd8YRnxKCTbB3FmWPJ0eE0jGXP4IMrYHlAaOsHvUNKn lbm [file] AyMjAyMiAwMDAwMCBuDQowMDAwMDIyMjYyIDAwMDAw TY4HSmCqBIHrUnB5FQsfHZOgGLQvgz8MYHAbAHXiTathNJPfODPgIXMpZBfdLYIiXPR2OzO9NSGhUPHt VG9SAnAvNUYjUtCeYgUdKFKyOBUepg5CPOGxLWXkKMI4VmFnDJRlQIMsEJh2oxSnkURrWSf6UI5XQ8Pn lfOxLgMIPq5Ap323VMV0OJVhIw1AE5yqSb0aBWFuIE KCXc3TNIk3PjOyHuqnTLR7QLT9OHKvQNSfVuVjSWTcZKniBGsvMUN+TUh3FEExL5QqZOQ2YMa4GEA7BR RtXmUqMoU7FMP4ORVlLP6vYWQJCb8+UFvesVWhgBreMOZXYfJ3SfTbGXhbWLNBCu0D ID Date Data Source [id number] 05/02/2021 10:16:24 AM EDT [facility] [place] [facility] SPECIMEN DESCRIPTION LUNGSPECIAL REQUESTS NONECULTURE RESULTS NO FUNGUS ISOLATED AFTER 5 WEEKSREPORT STATUS FINAL 05/02/2021 Name Value Range Interpretation Code Description Data Tami rce(s) Supporting Document(s) ID Date Data Source [id number] 05/02/2021 10:16:24 AM EDT [facility] [place] [facility] SPECIMEN DESCRIPTION SITE SPLEENSPECIAL REQUESTS NONECULTURE RESULTS NO FUNGUS ISOLATED AFTER 5 WEEKSREPORT STATUS FINAL 05/02/2021 Name Value Range Interpretation Code Description Data Tami rce(s) Supporting Document(s) ID Date Data Source [id number] 04/11/2021 07:24:20 AM EDT [facility] [place] [facility] Name Value Range Interpretation Code Description Data Tami rce(s) Supporting Document(s) SPECIMEN SOURCE [facility] [place] [facility] LUNG RESULT: [facility] [place] [facility] PERFORMING LAB: [facility] [place] [facility] [address] [place] [address] ID Date Data Source [id number] 04/11/2021 07:23:55 AM EDT [facility] [place] [facility] Name Value Range Interpretation Code Description Data Tami rce(s) Supporting Document(s) SPECIMEN SOURCE [facility] [place] [facility] SPLEEN RESULT: [facility] [place] [facility] PERFORMING LAB: [facility] [place] [facility] [address] [place] [address] ID Date Data Source [id number] 03/31/2021 08:52:16 AM EDT [facility] [place] [facility] SPECIMEN DESCRIPTION SITE SPLEENSPECIAL REQUESTS NONECULTURE RESULTS NO ANAEROBES ISOLATEDREPORT STATUS FINAL 03/31/2021 Name Value Range Interpretation Code Description Data Tami rce(s) Supporting Document(s) ID Date Data Source [id number] 03/31/2021 08:49:55 AM EDT [facility] [place] [facility] SPECIMEN DESCRIPTION SITE SPLEENSPECIAL REQUESTS NONEGRAM STAIN FEW (<10/LPF) WHITE BLOOD CELLS NO BACTERIACULTURE RESULTS FEW ENTEROCOCCUS SPECIES RARE ESCHERICHIA COLI ANAYELI NUMBERS CAN NOT BE DIRECTLY COMPARED ACROSS DIFFERENT ANTIBIOTICS. ANAYELI VALUES ARE OCCASIONALLY USEFUL. SUSCEPTIBLE OR RESISTANT INTERPRETATIONS ALONE ARE SUFFICIENT FOR ANTIBIOTIC SELECTION IN THE GREAT MAJORITY OF INFECTIONS.REPORT STATUS FINAL 03/31/2021ORGANISM ENTEROCOCCUS SPECIESMETHOD MICAMPICILLIN <=2 SUSCEPTIBLE ISOLATES SUSCEPTIBLE TO AMPICILLIN ARE ALSO SUSCEPTIBLE TO AMOXICILLIN.VANCOMYCIN 1 SUSCEPTIBLE ENTEROCOCCI ARE RESISTANT TO ALL CEPHALOSPORINS,CLINDAMYCIN, TRIMETHOPRIM/SULFA AND AMINOGLYCOSIDES (EXCEPT FOR HIGH-LEVEL RESISTANCE SCREENING), THESE ARE NOT REPORTED PER [facility] STANDARDS.SYNERGY GENTAMICIN SUSCEPTIBLE SS (SUSCEPTIBLE) INDICATES SYNERGY WITH A PENICILLIN IS LIKELY. R (RESISTANT) INDICATES SYNERGY WITH A PENICILLIN IS NOT LIKELY.SYNERGY STREPTOMYCIN SUSCEPTIBLE SS (SUSCEPTIBLE) INDICATES SYNERGY WITH A PENICILLIN IS LIKELY. R (RESISTANT) INDICATES SYNERGY WITH A PENICILLIN IS NOT LIKELY.PEN G (AMP,AMOX) 2 SUSCEPTIBLEERYTHROMYCIN 4 INTERMEDIATEORGANISM ESCHERICHIA COLIMETHOD MICAMIKACIN <=2 SUSCEPTIBLEAMOXICILLIN/CLAVULANIC AC <=2/1 SUSCEPTIBLEAMPICILLIN <=2 SUSCEPTIBLE ISOLATES SUSCEPTIBLE TO AMPICILLIN ARE ALSO SUSCEPTIBLE TO AMOXICILLIN.CEFOXITIN <=4 SUSCEPTIBLECEFTAZIDIME <=1 SUSCEPTIBLECEFTRIAXONE <=1 SUSCEPTIBLECIPROFLOXACIN <=0.25 SUSCEPTIBLEGENTAMICIN <=1 SUSCEPTIBLELEVOFLOXACIN <=0.12 SUSCEPTIBLEMEROPENEM <=0.25 SUSCEPTIBLEPIPERACILLIN/TAZOBACTAM <=4 SUSCEPTIBLETETRACYCLINE <=1 SUSCEPTIBLE ISOLATES SUSCEPTIBLE TO TETRACYCLINE ARE ALSO SUSCEPTIBLE TO DOXYCYCLINE AND MINOCYCLINE.TOBRAMYCIN <=1 SUSCEPTIBLETRIMETH/SULFA <=1/19 SUSCEPTIBLEERTAPENEM <=0.5 SUSCEPTIBLE Name Value Range Interpretation Code Description Data Tami rce(s) Supporting Document(s) ID Date Data Source [id number] 03/31/2021 08:13:43 AM EDT [facility] [place] [facility] SPECIMEN DESCRIPTION LUNGSPECIAL REQUESTS NONECULTURE RESULTS NO ANAEROBES ISOLATEDREPORT STATUS FINAL 03/31/2021 Name Value Range Interpretation Code Description Data Tami rce(s) Supporting Document(s) ID Date Data Source [id number] 03/30/2021 12:05:04 PM EDT Lab [facility] SPECIMEN DESCRIPTION LUNGSPECIAL REQUESTS NONEGRAM STAIN MODERATE (10 TO 25/LPF) WHITE BLOOD CELLS NO BACTERIACULTURE RESULTS FEW STREPTOCOCCUS PASTEURIANUS (S.BOVIS) MODERATE ENTEROCOCCUS SPECIES RARE ESCHERICHIA COLIREPORT STATUS FINAL 03/30/2021 Name Value Range Interpretation Code Description Data Tami rce(s) Supporting Document(s) ID Date Data Source [id number] 03/27/2021 09:33:29 AM EDT [facility] [place] [facility] Name Value Range Interpretation Code Description Data Tami rce(s) Supporting Document(s) POC GLUCOSE 119 mg/dL (70-99) H [facility] [place] [facility] PERFORMED BY CLINICAL STAFF ID Date Data Source [id number] 05/10/2021 09:33:25 AM EDT [facility] [place] [facility] [address] [place], [place] [address]Qgf# SURGICAL PATHOLOGY REPORTReceived:03/27/2021ccession #:[id number](s) Received: A: PlacentaClinical Diagnosis and History: Gestational age 28.1, EDC 06/08/21. CHTN, renal insufficiency(maternal), type I GDM, obesity, IUFD, spontaneous . GROSS DESCRIPTION: Placenta, received in formalin labeled with the patient's name. *Weight 134 gm (less than 10th percentile). Measurement 12.5 x 11.5 x up to 2.0 cm. Umbilical cord: Insertion Appears paracentral, located approximately2.5 cm from the closest margin. Measurement 12.5 cm in length and 1 cm in diameter. Number of vessels 3. Appearance Detached, dusky, hypocoiled, left to righttwist. Membranes: Insertion At a margin. Site of rupture 5.5 cm from the closest margin. Appearance Semitranslucent to minimal areas of yellowthickening and a moderate amount of adherent blood clot. Comments: The umbilical cord is detached and at the insertion site the placentais fragmented. The surface is mottled, focally dusky, potts to pinkwith radiating vasculature. The maternal surface ranges from fragmentedto intact spongy potts-pink lobules with areas of moderate amount of looselyadherent blood clot and fibrin. The cut surface displays multiple areasof maternal-based fibrin scattered throughout that involves [id number]% of the total cut surface. The remaining cut surface is spongy,homogeneous potts-pink parenchyma. Also received in the same container is a7.0 x 6.5 x 3.0 cm portion of homogeneous red-brown blood clot. Sectionsare submitted for microscopic examination. (4 blocks) *Note: Weight given is after formalin fixation. Post fixation weightsare higher than the true wet tissue weight. jmdkas/tbs DIAGNOSIS:PLACENTA 134 GM (SMALL FOR GESTATIONAL AGE) IMMATURE PLACENTA SHOWINGFOCI OF INFARCTION AND INTERVILLOUS THROMBUS; CHORIONIC VILLI VESSELS WITHNUCLEATED RBC's; THREE VESSEL UMBILICAL CORD. Repor brian: 03/28/2021 14:35Electronically Signed Out By Khushbu Vargas MD [facility] Hannah BlancoThis report may include one or more immunohistochemical or in-situhybridization results. Testing has been developed and the performancecharacteristics were determined by [facility] [place] laurie RIVERO as requiredby [place] '88 regulations. The tests may not have been approved for a givenspecific use by the US Food and Drug Administration, but the FDA hasdetermined that such approval is not necessary for clinical use.ICD9 codes: O43.819Procedures/AddendaCytogenetics Date Ordered: 05/10/2021 Status: Signed Out Date Complete: 05/10/2021 By: Best Ellis Date Reported: 05/10/2021 [facility] ReportCYTOGENETIC RESULTS: 46,XY[7]/46,XX[13]INTERPRETATION:An apparently normal male chromosome complement was observed in seven oftwenty metaphases analyzed. Thirteen metaphases showed an apparentlynormal female chromosome complement. The 46,XX karyotype most likely represents maternal chromosome complementas maternal cell contamination could not be ruled out. Genetic counselingis suggested. See attached outside report. Results-Comments{Not Entered} Khushbu Vargas MD Name Value Range Interpretation Code Description Data Tami rce(s) Supporting Document(s) ID Date Data Source [id number] 03/27/2021 07:28:31 AM EDT [facility] Name Value Range Interpretation Code Description Data Tami rce(s) Supporting Document(s) WBC 18.3 10*3/uL (4.1-11.0) H [facility] [place] of PETTYY RBC 3.62 10*6/uL (4.00-5.40) L [facility] [place] [facility] HGB 10.1 g/dL (12.0-16.0) L [facility] [place] [facility] HCT 31.2 % (36.0-47.0) L [facility] [place] [facility] MCV 86.2 fL (80.0-95.0) [facility] [place] [facility] MCH 28.0 pg (27.0-32.0) [facility] [place] [facility] MCHC 32.5 g/dL (32.0-36.0) [facility] [place] [facility] RDW 15.6 % (10.5-14.5) H [facility] [place] [facility] PLT 358 10*3/uL (150-450) [facility] [place] [facility] MPV 8.5 fL (7.1-10.7) [facility] [place] [facility] NEUT % 75.0 % (35.0-75.0) [facility] [place] [facility] BAND % 1.0 % (0.0-11.0) [facility] [place] [facility] LYMPH % 16.0 % (16.0-52.0) [facility] [place] [facility] MONO % 8.0 % (0.0-8.0) [facility] [place] [facility] NEUT # 13.7 10*3/uL (1.8-7.7) H [facility] [place] of [place] BAND # 0.2 10*3/uL [facility] [place] [facility] LYMPH # 2.9 10*3/uL (1.2-4.8) [facility] [place] [facility] MONO # 1.5 10*3/uL (0.0-0.8) H [facility] [place] [facility] ANISO 1+ [facility] [place] [facility] POLY 1+ [facility] [place] [facility] ID Date Data Source [id number] 05/08/2021 06:53:01 AM EDT [facility] [place] [facility] Name Value Range Interpretation Code Description Data Tami rce(s) Supporting Document(s) CYTOGENETIC RESULT [facility] [place] [facility] [address] [place] [address] ID Date Data Source [id number] 03/26/2021 11:41:18 PM EDT [facility] [place] [facility] Name Value Range Interpretation Code Description Data Tami rce(s) Supporting Document(s) POC GLUCOSE 116 mg/dL (70-99) H [facility] [place] [facility] Y PERFORMED BY CLINICAL STAFF ID Date Data Source [id number] 03/26/2021 04:36:27 PM EDT [facility] [place] [facility] Name Value Range Interpretation Code Description Data Tami rce(s) Supporting Document(s) POC GLUCOSE 111 mg/dL (70-99) H [facility] [place] [facility] NOTIFIED NURSEPERFORMED BY CLINICAL S TAFF ID Date Data Source [id number] 03/26/2021 10:48:43 AM EDT [facility] [place] [facility] Name Value Range Interpretation Code Description Data Tami rce(s) Supporting Document(s) POC GLUCOSE 123 mg/dL (70-99) H [facility] [place] [facility] NOTIFIED NURSEPERFORMED BY CLINICAL S TAFF ID Date Data Source [id number] 03/26/2021 09:13:10 AM EDT [facility] [place] [facility] Name Value Range Interpretation Code Description Data Tami rce(s) Supporting Document(s) POC GLUCOSE 126 mg/dL (70-99) H [facility] [place] [facility] PERFORMED BY CLINICAL STAFF ID Date Data Source [id number] 03/25/2021 06:51:45 PM EDT [facility] [place] [facility] Name Value Range Interpretation Code Description Data Tami rce(s) Supporting Document(s) POC GLUCOSE 107 mg/dL (70-99) H [facility] [place] [facility] NOTIFIED NURSEPERFORMED BY CLINICAL S TAFF ID Date Data Source [id number] 03/25/2021 03:21:03 PM EDT [facility] [place] [facility] Name Value Range Interpretation Code Description Data Tami rce(s) Supporting Document(s) POC GLUCOSE 74 mg/dL (70-99) [facility] [place] [facility] NOTIFIED NURSEPERFORMED BY CLINICAL S TAFF ID Date Data Source [id number] 03/25/2021 11:45:42 AM EDT [facility] [place] [facility] Name Value Range Interpretation Code Description Data Tami rce(s) Supporting Document(s) POC GLUCOSE 130 mg/dL (70-99) H [facility] [place] [facility] NOTIFIED NURSEPERFORMED BY CLINICAL S TAFF ID Date Data Source [id number] 03/25/2021 08:12:59 AM EDT [facility] [place] [facility] Name Value Range Interpretation Code Description Data Tami rce(s) Supporting Document(s) POC GLUCOSE 90 mg/dL (70-99) [facility] [place] [facility] NOTIFIED NURSEPERFORMED BY CLINICAL S TAFF ID Date Data Source [id number] 04/07/2021 08:21:43 AM EDT [facility] [place] [facility] Name Value Range Interpretation Code Description Data Tami rce(s) Supporting Document(s) RESULT [facility] [place] [facility] PERFORMING LAB [facility] [place] [facility] [address] [place] [address] ID Date Data Source [id number] 03/25/2021 02:18:07 PM EDT [facility] [place] [facility] Name Value Range Interpretation Code Description Data Tami rce(s) Supporting Document(s) ALEKS EDWARDS (NFET) [facility] [place] [facility] PERFORMED AT [address] [place] [address] [place] [address] ID Date Data Source [id number] 03/25/2021 05:57:16 AM EDT [facility] [place] [facility] Name Value Range Interpretation Code Description Data Tami rce(s) Supporting Document(s) URIC ACID 6.1 mg/dL (2.6-6.0) H [facility] [place] [facility] ID Date Data Source [id number] 03/25/2021 05:57:16 AM EDT [facility] [place] [facility] Name Value Range Interpretation Code Description Data Tami rce(s) Supporting Document(s) LDH 264 U/L (84-246) H [facility] [place] [facility] ID Date Data Source [id number] 03/25/2021 05:57:16 AM EDT [facility] [place] [facility] Name Value Range Interpretation Code Description Data Tami rce(s) Supporting Document(s) SODIUM 138 mmol/L (136-145) [facility] [place] [facility] POTASSIUM 4.2 mmol/L (3.6-5.2) [facility] [place] [facility] CHLORIDE 108 mmol/L (100-108) [facility] [place] [facility] CO2 23 mmol/L (22-31) [facility] [place] [facility] ANION GAP 7 mmol/L (7-16) [facility] [place] [facility] UREA NITROGEN 15 mg/dL (7-24) [facility] [place] [facility] CREATININE 0.95 mg/dL (0.60-1.00) [facility] [place] [facility] BUN/CREAT RATIO 15.8 RATIO (10.0-20.0) [facility] GLUCOSE 109 mg/dL (70-99) H [facility] [place] [facility] CALCIUM 8.6 mg/dL (8.4-10.2) [facility] [place] [facility] TOTAL PROTEIN 6.3 g/dL (6.4-8.2) L [facility] [place] [facility] ALBUMIN 2.3 g/dL (3.5-4.6) L [facility] [place] [facility] GLOBULIN 4.0 g/dL (2.7-4.3) [facility] [place] [facility] ALB/GLOB RATIO 0.6 RATIO [facility] [place] [facility] ALKALINE PHOSPHATASE 127 U/L (45-117) H [facility] BILIRUBIN,TOTAL 0.1 mg/dL (0.0-1.0) [facility] [place] [facility] PLEASE NOTE:Total bilirubin results may be falselyelevated in patients taking Eltrombopag. AST (SGOT) 34 U/L (11-39) [facility] [place] [facility] ALT (SGPT) 41 U/L (12-78) [facility] [place] [facility] GFR >60 ml/min/1.73m2 (>59) [facility] [place] [facility] GFR ( AMER) >60 ml/min/1.73m2 (>59) [facility] [place] [facility] GFR INTERPRETATION [facility] --NORMAL KIDNEY FUNCTION OR MILD DISEASE - GFR >OR= 60CHRONIC KIDNEY DISEASE - GFR 15 - 59RENAL FAILURE - GFR <15 Est. GFR calculation based on the MDRDstudy equation, which assumes a steadystate for creatinine. Est. GFR should notbe used for medication dosing. ID Date Data Source [id number] 03/25/2021 05:49:25 AM EDT [facility] [place] [facility] PETTYY Name Value Range Interpretation Code Description Data Tami rce(s) Supporting Document(s) APTT 24.1 s (22.0-34.3) [facility] [place] [facility] ID Date Data Source [id number] 03/25/2021 05:28:43 AM EDT [facility] [place] [facility] PETTYY Name Value Range Interpretation Code Description Data Tami rce(s) Supporting Document(s) WBC 13.6 10*3/uL (4.1-11.0) H [facility] [place] [facility] RBC 3.99 10*6/uL (4.00-5.40) L [facility] [place] [facility] HGB 11.2 g/dL (12.0-16.0) L [facility] [place] [facility] HCT 34.5 % (36.0-47.0) L [facility] [place] [facility] MCV 86.3 fL (80.0-95.0) [facility] [place] [facility] MCH 28.1 pg (27.0-32.0) [facility] [place] MCHC 32.5 g/dL (32.0-36.0) [facility] [place] laurie DOVE Y RDW 15.7 % (10.5-14.5) H [facility] [place] la[facility]ie DOVE Y PLT 377 10*3/uL (150-450) [facility] [place] MPV 8.5 fL (7.1-10.7) [facility] [place] laurie RIVERO ID Date Data Source [id number] 03/30/2021 09:11:07 AM EDT [facility] [place] laurie RIVERO Name Value Range Interpretation Code Description Data Tami rce(s) Supporting Document(s) TSH RECEPTOR AB 1.01 IU/L [facility] [place] [facility] [employer] [employer] [facility] Reference range: <=1.75 Performed By: [email or web address] [address] [place] [id number] Sp[employer] Gear Generator: Nina Leon MD ID Date Data Source [id number] 03/29/2021 07:28:28 PM EDT [facility] [place] laurie RIVERO Name Value Range Interpretation Code Description Data Tami rce(s) Supporting Document(s) PARVO B19 IGG AB 5.53 H [facility] [place] laurie RIVERO Reference range: <=0.90Unit: IV INTERPRE TIVE INFORMATION: Parvovirus B19 Antibody, IgG 0.90 IV or less .......... Negative - No significant level of detectable Parvovirus B19 IgG antibody. 0.91 - 1.09 IV ........... Equivocal - Repeat testing in 7-21 days may be helpful. 1.10 IV or greater ....... Positive - IgG antibody to Parvovirus B19 detected which may indicate a current or past infection. The best evidence for current infection is a significant change on two appropriately timed specimens, where both tests are done in the same laboratory at the same time. PARVO B19 IGM AB 0.30 Lab [facility] Reference range: <=0.90Unit: IV INTERPRE TIVE INFORMATION: Parvovirus B19 Antibody, IgM 0.90 IV or less .......... Negative - No significant level of detectable Parvovirus B19 IgM antibody. 0.91 - 1.09 IV ........... Equivocal - Repeat testing in 7-21 days may be helpful. 1.10 IV or greater ........ Positive - IgM antibody to Parvovirus B19 detected which may indicate a current or recent infection. However, low levels of IgM antibodies may occasionally persist for more than 12 months post-infection. The best evidence for current infection is a significant change on two appropriately timed specimens, where both tests are done in the same laboratory at the same time. Appearance of an IgM antibody response normally occurs 7 to 14 days after the onset of disease. Testing immediately post-exposure is of no value without a later convalescent specimen. A residual IgM response may be distinguished from early IgM response to infection by testing sera from patients three to four weeks later for changing levels of specific IgM antibodies. Performed By: [employer] [address] [place] [address] Spiral Gear Generator: Nina Leon MD ID Date Data Source [id number] 03/28/2021 02:06:25 PM EDT [facility] [place] laurie RIVERO Name Value Range Interpretation Code Description Data Tami rce(s) Supporting Document(s) DRVVT CONFIRM @ 32.4 s [facility] [place] [facility] DRVVT RATIO @ 1.50 (<1.31) H Lab [facility] PETTYRayray LUPUS ANTICOAGULANT IS DETECTED IN THE D ILUTERUSSELL'S VIPER VENOM ASSAY. TRANSIENT LOW-POSITIVE RESULTS MAY BE SEEN IN A NUMBER OFINFLAMMATORY, INFECTIOUS, AND MALIGNANTDISORDERS. REPEAT TESTING IN 12 WEEKSIS RECOMMENDED TO DETERMINE PERSISTENCEOF THE LUPUS ANTICOAGULANT. ID Date Data Source [id number] 03/28/2021 02:06:04 PM EDT [facility] Name Value Range Interpretation Code Description Data Tami rce(s) Supporting Document(s) DRVVT SCREEN @ 48.5 s (<44.1) H Lab [facility] JOSEFA APTT @ 20.7 s (22.0-34.3) L Lab [facility] PETTY Seo A NORMAL APTT DOES NOT RULE OUT THE PRES ENCEOF A LUPUS ANTICOAGULANT. IF CLINICAL HISTORYIS STRONGLY SUGGESTIVE, FURTHER TESTING ISRECOMMENDED. CARDIOLIPIN IGA @ 1 APL (0-12) Lab [facility] JOSEFA INTERPRET ATION OF RESULTS: < 12 UNITS NEGATIVE 12 - 20 UNITS EQUIVOCAL > 20 UNITS POSITIVE The following result was obtained withthe ColibríA Lite SAMANTHA IgA III GUANACO.Results obtained with other manufacturers'assay methods may not be used interchangeably.The magnitude of the reported IgA levelcannot be correlated to an endpoint titer. CARDIOLIPIN IGG @ 4 GPL (0-15) Lab [facility] INTERPRET ATION OF RESULTS: < 15 UNITS NEGATIVE 15 - 19 UNITS EQUIVOCAL 20 - 79 UNITS MOD POSITIVE > 79 UNITS HIGH POSITIVE The following result was obtained withthe Two[employer] QUANTA Lite SAMANTHA IgG III GUANACO.Results obtained with other manufacturers'assay methods may not be used interchangeably.The magnitude of the reported IgG levelscannot be correlated to an endpoint titer. CARDIOLIPIN IGM @ 12 MPL (0-12) Lab [facility] INTERPRET ATION OF RESULTS: < 12 UNITS NEGATIVE 12 - 19 UNITS EQUIVOCAL 20 - 79 UNITS MOD POSITIVE > 79 UNITS HIGH POSITIVE The following result was obtained withthe [employer] QUANTA Lite SAMANTHA IgM III GUANACO.Results obtained with other manufacturers'assay methods may not be used interchangeably.The magnitude of the reported IgM levelcannot be correlated to an endpoint titer. ID Date Data Source [id number] 04/03/2021 06:24:48 PM EDT [facility] [address] [address]Wgu# Fax# AUTOPSY REPORTAccession #:[id number] SummaryFETAL AUTOPSYMale Connie Prado was the product of a 27.5 week gestation, born to a , 26-year-old female on 03/26/2022. The estimated date of confinementwas 06/18/2021. Maternal medical history is significant type I diabetes mellitus withhyperglycemia (on insulin pump), long-term insulin use, chronichypertension, renal insufficiency, mild non-proliferative diabeticretinopathy, depression, obesity (BMI 48), iron deficiency, and vitamin Ddeficiency. Patient's past obstetric history was significant for spontaneous abortionat 7 weeks (07/2018). lab values were as follows: blood type A+, antibody screennegative, rubella status immune, varicella negative, gonococcus negative,chlamydia negative, HBSAG negative, HIV negative. Social history was negative for smoking, alcohol or illicit drug use. Pertinent home medications were as follows: aspirin, vitamin D3, prenatalDHA, Famotidine, Fluoxetine, insulin, Labetalol, Metformin, andPromethazine. Mrs. Prado was followed by the Center for management of type Idiabetes in . She was undergoing routine ultrasound and officevisit when demise was identified. She denied cramping, blood or fluid loss and contractions.Mrs. Prado was [facility] to [facility] on 03/24/2021 for labor inductiondue to intrauterine demise. Misoprostol was placed and Male BabyWolf was subsequently delivered on 03/26/2021 at 2223. Apgars were 0, 0. Gestational Age: 27.0Authorized By: Silvestre Prado / Brett PradoRelationship to Patient: ParentsReason for Autopsy: Reason not givenAutopsy Restrictions: None NO RESTRICTIONSGross DescriptionMeasurements/Weights with normals at 27 weeks gestation:Body weight: 509.2 g* (639 - 1033 g)[place]- rump: 22.0 cm (21.7 - 26.7 cm)[place]-heel: 30.1 cm (29.9 - 36.9 cm)Heel-toe: 4.0 cm* (4.5 - 5.5 cm)Head Circumference: 19.6 cm (23.4 - 26.2 cm)Chest Circumference: 16.0 cm (19.4 - 22.2 cm)Inner canthal Distance: 1.3 cm (1.5 - 1.8 cm)Outer canthal Distance: 3.8 cm (4.4- 5.2 cm)Inter nipple Distance: 3.7 cm (4.1 - 5.3 cm)Brain: 96 g (97 - 139 g)Thymus: 0.81 g* (1.1 - 3.5g)Heart: 3.5 g* (3.9 - 7.7 g)Lungs: 8.2 g* (12.4 - 31.8 g)Lung/Body weight rati o: 1.6% (2.68 - 3.62)Spleen: 0.3 g* (0.7 - 2.7 g)Liver: 10.1 g* (21.8 - 48.4 g)Kidneys 3.9 g* (5.6 - 11.6 g)Adrenals: 0.57 g* (1.4 - 3.6 g)PROTOCOL:The autopsy is performed on March 28, 2021 at 09:45. The pathologist inattendance is Lisseth Bello MD. The autopsy is prosected by OLGA Tomas ([facility]), S. The district administrative assistant is Fabrizio Roth. Theautopsy permission is signed by Silvestre and Brett Prado, parents of thedeceased and there are no restrictions.EXTERNAL EXAMINATION:PERICARDIAL CAVITY:The sac is free from adhesions and contains minimal serosanguineous fluid. PLEURAL CAVITIES:The pleural surfaces are smooth, dusky purple-quintanilla. Each cavity containsapproximately 5 cc of serosanguineous fluid. The lungs occupy 90% oftheir respective pleural cavities. Each lung has the normal number oflobes. PERITONEAL CAVITY:The peritoneal surfaces are dusky purple-quintanilla. The cavity containsapproximately 5 cc of serosanguineous fluid. The spleen is located in theleft upper quadrant and the appendix in the right lower quadrant. CARDIOVASCULAR SYSTEM:On examination of the right atrium, the foramen ovale is probe patent. The coronary sinus is in normal position. The tricuspid valve isunremarkable. The pulmonary outflow is unremarkable. The ductusarteriosus is patent. The pulmonary venous return is normal to the leftatrium. The mitral valve is unremarkable. On examination of the aorticoutflow the intraventricular septum is intact. The coronary ostia are innormal position. The great vessels arising from the heart and those arising from the aorticarch do so in normal position. No anomalies are identified in the remainder of the thoracic or abdominalaorta. RESPIRATORY SYSTEM:The trachea and major bronchi are autolyzed. The cut surface of the lungs are pale red-potts and autolyzed. HEMOPOIETIC SYSTEM:The spleen has a smooth dusky red-quintanilla capsule. The cut surfaces are palered-purple and autolyzed.No enlarged lymph nodes are identified. GASTROINTESTINAL SYSTEM:There is diffuse autolysis throughout. No anomalies are identified in the esophagus or stomach. No anomalies are identified in the remainder of the smaller or largeintestine. LIVER:The capsule is pale brown and red-potts, and the cut surfaces are soft, tanto red and autolyzed.The gallbladder is present and autolyzed. PANCREAS:The pancreas is present and autolyzed. ENDOCRINE SYSTEM:The adrenals are normal in position, size and shape. The cut surfaces areautolyzed, dusky quintanilla-red. GENITOURINARY SYSTEM:The capsules strip easily from potts-brown cortical surfaces dividedirregularly by lobulations. The cortex and medulla are welldemarcated but autolyzed. No anomalies of the urinary bladder are identified. The testes are present in the lower peritoneal cavity and appearautolyzed.ORGANS OF THE NECK:The thymus is small and the outer surface is lobulated red-potts. The cutsurfaces are autolyzed. The thyroid and larynx reveal no grossabnormalities with the exception of autolysis. BRAIN:The soft tissues of the scalp are macerated. The fontanelles are flat. The dura mater is intact, and the tentorium cerebellae are intact. Thereis no subarachnoid hemorrhage nor exudate. The outer surface is dusky,red-quintanilla and the convolutions and sulci are not well formed. After fixation serial coronal sections reveal an apparent normalventricular configuration with marked autolysis approaching nearliquefaction.Sections are submitted as follows: right upper and middle lobe of lung -RUM; right lower of lung - RLL; left upper lobe of lung - ERICH; left lowerlobe of lung - LLL; heart and liver - HTL; spleen and pancreas - SPP;stomach, small and large intestines - GI; adrenal glands - ADR; right andleft kidneys - RK and LK respectively; urinary bladder - UBL; testes - UMANG; thyroid and thymus - TRA; rib and vertebral body afterdecalcification - DEC; skin and muscle - SK; brain to include frontalcortex in A16, and paraventricular in A17 BR. (17 blocks)Microscopic DescriptionCARDIOVASCULAR SYSTEM:Sections of the heart show severe autolysis with loss of nuclearbasophilia in both inner and outer myocardium. No inflammation isidentified. RESPIRATORY SYSTEM:Sections of the lungs show lungs at a saccular stage with normal appearalveolar radial count. There is mild autolysis with detachment ofbronchial epithelium. No inflammation is identified in the air spaces. There is focal loss ofnuclear basophilia in cartilage. Squames are noted in distal air spaces. GASTROINTESTINAL TRACT:Section of liver shows severe autolysis with outline of hepaticparenchyma. Section of pancreas shows outline of normal lobulated pancreas. Outlineof islet cells are noted with suggestion of enlargement. Sections of stomach shows moderate autolysis with loss of surface mucosa. Section of small bowel and colon shows moderate to severe autolysis. Outline of ganglion cells are noted. The lumens are dilated with marcel lulardebris. RETICULOENDOTHELIAL SYSTEM:Section of the spleen shows moderate autolysis. Lymphocytes are noted. Section of thymus shows moderate autolysis with lymphocytes and Hassallcorpuscles identified. Section of bone shows development technician ossification with associated marrow showingautolysis with outline of trilineage hematopoiesis. ENDOCRINE SYSTEM:Section of the adrenal glands show outline of provisional cortex withsevere autolysis. Thyroid is present. GENITOURINARY SYSTEM:Sections of the kidneys show moderate to severe autolysis. There isorderly nephrogenic zone with 5-6 layers of glomeruli. Tubules show lossof nuclear basophilia. Section of the bladder shows loss of urothelium. Prostate gland is noted. Section of testis shows seminiferous tubules with moderate autolysis. Section of skin shows autolysis with separation of epidermis from dermis. Bacterial overgrowth is noted with both rods and coccal forms notedwithout acute inflammation. BRAIN:Sections of brain show autolysis.PLACENTA:The placenta is small for gestational age showing multiple foci ofinfarction. Vessels show changes of intrauterine demise with septation ofstem vessels. Chorionic villi show intravascular nucleated RBCs andkaryorrhectic debris.MICROBIOLOGY:Lung cultures are positive for Streptococcus pasteurianum, Enterococcusspecies, and Escherichia coli. Cultures of spleen are positive forEnterococcus species and Escherichia coli. Viral cultures negative to date. The cultures appear to represent postmortem contaminants. No acuteinflammation is identified. Bacterial colonies are noted on skin withoutinflammation. SUMMARY:At autopsy, no congenital anomalies are noted. The is small forgestational age with severe maceration and autolysis. The placental showslarge areas of infarction with changes of intraut erine demise Diagnosis1. 509.2 G (SMALL FOR GESTATIONAL AGE) STILLBORN 27.5 WEEK MALEWITH: A. MACERATION AND AUTOLYSIS, SEVERE. B. NO CONGENITAL ANOMALIES IDENTIFIED.2 PLACENTA ([id number]): 134 GM (SMALL FOR GESTATIONAL AGE) PLACENTA SHOWING FOCI OF INFARCTION (50%). CHORIONIC VILLI WITH CHANGES OF INTRAUTERINE DEMISE. Reported: 04/03/2021 18:23 Electronically Signed Out By Lisseth Carvajal M.D. rff/03/28/2021 [facility] [address] JoseuseTOY [id number] component performed at [facility], Histopathology, [address] [place] [address], [phone].Reported at [facility], [address] [place] [address], [phone].This report may include immunohistochemical or in-situ hybridizationresults. Testing was developed and the performance characteristicsdetermined by [facility] as required by CLIA '88. The FDAhas determined that approval for specific use is not necessary forclinical use. The quality of Hematoxylin and Eosin stains and asapplicable, for all immunohistochemical and/or special stains, includingpositive and negative controls, were reviewed and considered appropriate. Name Value Range Interpretation Code Description Data Tami rce(s) Supporting Document(s) ID Date Data Source [id number] 03/24/2021 07:45:00 PM EDT [facility] Name Value Range Interpretation Code Description Data Tami rce(s) Supporting Document(s) SARS coronavirus 2 RNA [Presence] in Res piratory specimen by SACHIN with probe detection NOT DETECTED [facility] This lab was reported by [facility]. ID Date Data Source [id number] 03/25/2021 11:28:30 AM EDT Lab [facility] Name Value Range Interpretation Code Description Data Tami rce(s) Supporting Document(s) TREPONEMA IGG/IGM @ (NEG) Lab [facility] [place] ID Date Data Source [id number] 03/25/2021 11:09:26 AM EDT Lab [facility] Name Value Range Interpretation Code Description Data Tami rce(s) Supporting Document(s) PROTEIN,URINE 699 mg/dL Lab [facility] URINE PROTEIN MAY BE FALSELY ELEVATEDDUR ING TREATMENT WITH AMINOGLYCOSIDESDUE TO METHOD INTERFERENCE. CREATININE,URINE 292.00 mg/dL Lab [facility] [place] URINE TP/CR RATIO 2.39 RATIO (0.00-0.20) H Lab [facility] [place] ID Date Data Source [id number] 03/25/2021 09:17:38 AM EDT [facility] Name Value Range Interpretation Code Description Data Tami rce(s) Supporting Document(s) URINE WBC (0-5) Lab [facility] URINE RBC (0-2) Lab [place] [facility] EPITHELIAL CELLS 1+ [HPF] Lab [place] [facility] [place] BACTERIA 2+ [HPF] Lab [place] [facility] [place] HYALINE CASTS Lab [place] [facility] [place] ID Date Data Source [id number] 03/25/2021 08:45:16 AM EDT Lab [place] [facility] [place] Name Value Range Interpretation Code Description Data Tami rce(s) Supporting Document(s) COLOR Lab [place] [facility] [place] APPEARANCE Lab [place] [facility] [place] SPEC GRAV URINE 1.030 (1.003-1.030) [facility] [place] PH URINE 6.0 (5.0-7.5) Lab [place] [facility] [place] LEUK ESTERASE (NEG) Lab [place] [facility] [place] CRITERIA FOR CULTURE NOT MET.CULTURE CAN BE ADDED WITHIN 36 HOURS OFCOLLECTION. NITRITE URINE (NEG) Lab [place] of [place] PROTEIN URINE 3+ (NEG) A Lab [place] [facility] [place] GLUCOSE URINE 3+ (NEG) A Lab [place] [facility] [place] KETONE URINE (NEG) Lab [place] of [facility] UROBILINOGEN 0.2 mg/dL (0-1.0) Lab [place] of [facility] BILIRUBIN URINE (NEG) Lab [place] o f [place] BLOOD/HGB URINE (NEG) A Lab [place] [facility] [place] ID Date Data Source [id number] 03/24/2021 11:38:47 PM EDT Lab [place] of [place] Name Value Range Interpretation Code Description Data Tami rce(s) Supporting Document(s) SPECIMEN DESCRIPTION Lab [facility] [place] INFLUENZA A (NEG) Lab [place] of [place] Y INFLUENZA B (NEG) Lab [place] [facility] [place] Y RSV (NEG) Lab [place] [facility] [place] COMMENT Lab [place] of [place] THE [place] FDA HAS MADE THIS TEST AVAILABL EUNDER AN EMERGENCY USE AUTHORIZATION(EUA) FOR THE DETECTION AND/OR DIAGNOSISOF THE VIRUS THAT CAUSES COVID-19.PERFORMED AT [facility] [facility] [address] COVID19 RESULT (NDET) Lab [place] of [place] THIS ASSAY AMPLIFIES AND DETECTSTHE TARG ET RNA USING REAL-TIME PCR.TESTING PERFORMED ON SeleroID GENEXPERTNEGATIVE 2019_NCOV RT-PCR RESULTS DONOT PRECLUDE 2019_NCOV INFECTION ANDSHOULD NOT BE USED THE SOLE BASISFOR PATIENT MANAGEMENT DECISIONS. FIRST TEST Lab [place] of [place] EMPLOYED IN HLTHCARE Lab [facility] of [place] SYMPTOMATIC Lab [place] of [place] Y DATE OF SYMPT ONSET Lab [facility] [place] HOSPITALIZED Lab [place] of [place] ICU Lab [place] of [place] CONGREGATE CARE SET Lab [facility] [place] Lab [place] of [place] ID Date Data Source [id number] 03/24/2021 11:36:22 PM EDT Lab [place] of [place] SPEC EXP DATE 1PATI ENT ABO/Rh A POSITIVEANTIBODY SCREEN NEGATIVETESTING SITE PERFORMED AT [address] [place] [address] Name Value Range Interpretation Code Description Data Tami rce(s) Supporting Document(s) ID Date Data Source [id number] 03/24/2021 11:31:16 PM EDT Lab [place] of [place] Name Value Range Interpretation Code Description Data Tami rce(s) Supporting Document(s) AMPHETAMINES,URINE (NEG) [facility] [place] BARBITURATES,URINE (NEG) [facility] [place] BENZODIAZEPINE,URINE (NEG) Lab [facility] of [place] CANNABINOIDS,URINE (NEG) [facility] [place] COCAINE,URINE (NEG) Lab [place] of [place] OPIATES,URINE (NEG) Lab [place] [facility] [place] NOTE: Oxycodone is not sufficientlydetec brian by this screening assay. A moresensitive assay is available upon request. PHENCYCLIDINE,URINE (NEG) [facility] [place] PLEASE NOTE: Lab [place] of Terri YEAGER ARE REPORTED POSITIVE WHEN THE RESULT SEXCEED THE THRESHOLD (CUTOFF) INDICATED. ALIST OF POTENTIAL INTERFERENCES FOR EACHMETHOD CAN BE MADE AVAILABLE UPON REQUEST.CONFIRMATION OF A POSITIVE SCREEN CAN BE PERFORMED BY A REFERENCE LABORATORY IFREQUEST IS MADE WITHIN 48 HRS.* * * * * * * * * * * * * * *THIS ASSAY IS NOT INTENDED TO BE USED FORMONITORING MEDICATION COMPLIANCE. ID Date Data Source [id number] 03/24/2021 11:04:19 PM EDT Lab [place] of [place] Name Value Range Interpretation Code Description Data Tami rce(s) Supporting Document(s) WBC 12.4 10*3/uL (4.1-11.0) H Lab [place] of [place] RBC 3.85 10*6/uL (4.00-5.40) L Lab [place] of [place] HGB 10.7 g/dL (12.0-16.0) L Lab [place] of [place] Y HCT 33.6 % (36.0-47.0) L Lab [place] of [place] MCV 87.4 fL (80.0-95.0) Lab [place] of [place] MCH 27.7 pg (27.0-32.0) Lab [place] [facility] [place] MCHC 31.7 g/dL (32.0-36.0) L Lab [place] [facility] [place] RDW 15.9 % (10.5-14.5) H Lab [place] of [place] PLT 417 10*3/uL (150-450) Lab [place] [facility] [place] MPV 9.4 fL (7.1-10.7) Lab [place] of [place] ID Date Data Source [id number] 03/23/2021 02:32:04 PM EDT [facility] Name Value Range Interpretation Code Description Data Tami rce(s) Supporting Document(s) Progress Note [facility] USUBHg5uSqROYbNk10/ZCQhzIIDoo0FwIHaqYWm5INbyXBZfL9XoSSN6fD7bAVY2QRmEGlOrRuOnVTG1 lbm PkVivRQzSiQBHjItdHWgVeIYytCefjzCCuPA1VxEA3YOCyO35sYEOlIJSpK6UfUAM8Cdk+Go9JKYQvrA LyIW4NKthV2AfTnyb1FP7p4J1EmUOQGHuNJvrlrqHDCizz2eFYlqEeuz5aklWzXvB7p6CS//zmPRq6T1 Gc2AwbSEv7ZN4TfrQ7CTWa3b+/1D8Qkb5S/X/9MdGC xItflf4Hn41T4kjiL9rUFzqmrRMmaY0T4QYHU1RcfCsRTN3MOyrNXZHnrGR6o2fy2nLLf6v1CavFqgBz lMddENj9r2IKqbtiNQEiym0AVLLAVeZPkjTHdKodeXeeYBIGFqhbixHuhULgtmriMcW3aDIAdEWIVSCN LJhxXXNnOIBEDPNsdxu35Ld1biNoSgqXm/M9HxXahq mSG1DPlaeQKzzKePRBkm58ATsQFPk5e6JmYbQzaBKolXE6LEYmucO9uTylG/tVyECZNHXiv1MgHPTOfs d9Rxg4YbCKnLa8o8zjb6HgNPy8CwUGD9Xuks/RLK2BLF4MQ13YTw7Yt6yxVhNzwNtVYmjHxxdExQkyy1 PI/4mG2q72XpAIY9x/JTpc173y6ZS5h0Gz/l5zin4s DJ0VY6cOuQ2Vb/5NmTBWqjPfwesX/cExwG9bgkRzJHf2X94vJbPammiYYxN2+UIFNRbCXttSZ9iZTNZ5 DIky7GMt7/l8ddwKwS7ckhvJ4K2t4ZLWEw8qIoa3eb8fbXftaWvMNnLdRY3nKJYfuwOpI8U9WT+f/Eran Mp+4wSKo5EsRddEFf8rCbjTsYmxQiiJ3vQgyg2cEQB EmW1Wce4mrcfDb3D9v3xMh+AKfDHCxDM5yOC7/IkWheJqiXzwucKjdAv2DXPmFZsHPXrqAfO4NEAqxUg Xvz02V7wTQSkBk60tsNobqGbz8e3QjzSSf0GBdRD6OnfD+8Di5MSSh5jgz8laaXJg6kfbOxRRpnCqZaX SncVgUqL034R4TY1Yri4k0QuBWqgb3q97uSHQVf8LW lP2pqKu1qf0cPYCFO6vTrpQifyKNWYwoYGqp3JbNtALXio3grrMnwFtR5hjy53V5vZfZDavnActBXf0U NXDYF1IOlWMtOtbQgRaFZm29wNbY9lJDHeZLeI/ZUJZ0TxVzOsfHwEyE9G16Jx4L1INGlN07zSZ2ZCqZ 1k+1JN8oBhNarrcZtTvOziGfJExTt+Kamar+ElyZTMUZ [file] ZTgxYjMzZDA+FF5eYPd+Yk8Ma5ChexP7waWhJJhyRSL4EG1CFPZBT6WBUx== ID Date Data Source [id number] 03/23/2021 02:17:13 PM EDT [facility] Name Value Range Interpretation Code Description Data Tami rce(s) Supporting Document(s) Progress Note [facility] WWBTNe7lLgNEOmKm64/BCXwaBVRfz8YaXCogKZw2KAfxUSXhL6OsJBS3tQ7yIXS9OTxSXaZoTdCpFMG8 lbm QaRksVTyXoVIKnWwyRQlJxWUisUpnvrXWvZR7WwCQ2SEKyS80bJQBuBSTbY0RjTBT8OSG+Xd1CELSwsW EaPK6XVzdU3F1fmmiJCv8bsN/QriATM1Sxo296ZUVq08sJJehlrmDt1l4kjZDXTvJSfdWh/z791QV864 OTlZ88YdgtPTWEyunmSoinpBtF3c//o8NXwT2yzn/W sfpOVgeM7qb/uF7csV0/xjwLRTCy6Q4dGwOQpN+B//oBE0kb2GOmEskmdPK0meBrb+bM6pEacC0kZ8+o 6Jokd6jDAqSsXwX9UbpbcUQojUzDeuJlyamlVoCEHTpoeOGKPFGaA+KbEhVWtaHE4wY8vLf+w2XQVBX3 6y5GMb59jtRRXSN+JBTUFMwomELQo+D7byr4+6F603 lWfS8O/rH3ogiJnAPY9WnnWF6eb2xTHctbUZZKk27Csw6vO8lMqkpKvQM+Bi1yXN2Q+bQg+ceA61DvHv esA2CfncZLFRlMCUr3teEUkQsBd/9t8MPNuuVqNfxuK/Cpf72Sd8M30uWb4X0ovQMZI1iCavjZYe8uE4 iNAIFVzD9eXSAKipxP0VBlBRF72QLy7g4JX5PX03fw C7fHp6goQ5cBNYYxNt/K0Sev1TJygE5wZ5nAxrKcoaYGyRcg3Ufk85cbSlICFj5sP3HLo5QL1Gmnbc5g KYqSLSV/cX6+qXlQGYBRk7zQDZ7zFs96fY9W2Os+5HyMD88/lf9xF67/OVLH/f15HxsjYafjPTcJW9Lp RACHNA/pB9hZ9iJ6DZdV20jMG852jEXn/ZN/jCf8s0aYDI [file] sgNzhdJRC1EPI5Btw6PuI0DER9HX5wSCPWAi3+QGmiqSNvsKhiIUPFFnJ7OnA5QHyjCWQYHl2O ID Date Data Source [id number] 03/03/2021 04:12:22 PM EDT [facility] Name Value Range Interpretation Code Description Data Tami rce(s) Supporting Document(s) Progress Note [facility] RSRSKi2zYdALBsHo39/QSRjyRLJtu1JxCQpvJAe6MQtyJKRsI7GpBKO8wD4iPQY9JEpMWpWmEnVvTlM4 lbm PgSeuDHrCvHQYuGtoKIiZkCEzfXmgorPJqJA5MgJQ2SVJmC13pDHOkKJUiE9SaLWQ4OZH+Qh3SDIDnpZ UoMZ9MEczM9I8we8rOSc4liE3bkOXgX7Di5xXqJNx0GNqq3VQjHN4Wcf9niYwj1N4CH5tc/76X4xUcEg J87l2QxifOKXcHBK2PqgwXYyxj9B5/b0flTrxQ64/q 9fqL3lVe/piZzx1PF1lt3v+bj9yXWkOq2z/Uv/vb9IugFJfshJuwtNC0zB35RGbZeP0LYfS36ZfybtdY kvwdRfekWDlh9QU7zFsBSgXo2bLWDi27PSKOqDqtvj2xaDSnSfpdLQztntRUDTT+pY/Si5+bqIJ4nt58 JMZrNviQeGu8vgVQFBOFoFRNQJIDH10anp0lz/eDte eCYRTFgr9KrkbgcPbuPk+X5XWVEGKdeoKjtCRjh2YJvDQm5zoukvlzOsslA5XbtqwPZ48i4HlZh7M6+G ovooLeVbenjJB2YlhtqJ/EUDFfZ0eii3Z3BLM+g2TsqJATI4zCLMQ8nLmKsuexhhLshX3crSAgs8Yqm2 gRnuwcQy/kKTnoGt8ijgT8/8jfGbx3/aQW/Er8b/Haile [file] ICAgICAgICAgICAgICAgICAgICAgICAgICAgICAgIC AgICAgICAgICAgICAgICAgICAgICAgICAgICAgICAgICAgICAgICAgICAgICAgICAgICANCiAgICAgIC AgICAgICAgICAgICAgICAgICAgICAgICAgICAgICAgICAgICAgICAgICAgICAgICAgICAgICAgICAgIC AgICAgICAgICAgICAgICAgICAgICAgICAgICAgICAg ICANCiAgICAgICAgICAgICAgICAgICAgICAgICAgICAgICAgICAgICAgICAgICAgICAgICAgICAgICAg ICAgICAgICAgICAgICAgICAgICAgICAgICAgICAgICAgICAgICAgICAgICANCiAgICAgICAgICAgICAg ICAgICAgICAgICAgICAgICAgICAgICAgICAgICAgIC AgICAgICAgICAgICAgICAgICAgICAgICAgICAgICAgICAgICAgICAgICAgICAgICAgICAgICANCiAgIC AgICAgICAgICAgICAgICAgICAgICAgICAgICAgICAgICAgICAgICAgICAgICAgICAgICAgICAgICAgIC AgICAgICAgICAgICAgICAgICAgICAgICAgICAgICAg ICAgICANCiAgICAgICAgICAgICAgICAgICAgICAgICAgICAgICAgICAgICAgICAgICAgICAgICAgICAg ICAgICAgICAgICAgICAgICAgICAgICAgICAgICAgICAgICAgICAgICAgICAgICANCiAgICAgICAgICAg ICAgICAgICAgICAgICAgICAgICAgICAgICAgICAgIC AgICAgICAgICAgICAgICAgICAgICAgICAgICAgICAgICAgICAgICAgICAgICAgICAgICAgICAgICANCi AgICAgICAgICAgICAgICAgICAgICAgICAgICAgICAgICAgICAgICAgICAgICAgICAgICAgICAgICAgIC AgICAgICAgICAgICAgICAgICAgICAgICAgICAgICAg ICAgICAgICANCiAgICAgICAgICAgICAgICAgICAgICAgICAgICAgICAgICAgICAgICAgICAgICAgICAg ICAgICAgICAgICAgICAgICAgICAgICAgICAgICAgICAgICAgICAgICAgICAgICAgICANCiAgICAgICAg ICAgICAgICAgICAgICAgICAgICAgICAgICAgICAgIC AgICAgICAgICAgICAgICAgICAgICAgICAgICAgICAgICAgICAgICAgICAgICAgICAgICAgICAgICAgIC ANCjw/kSHlB5mywUDdrkW5E0uuZk5HEd8NMG1se3CcISYjFQctnzQsXbyAYqQtROCgYctZDsz4SHvrAH 4OoTZiZ9CwG8WhRSngOP6QSSWkQGVpkPWzPZPvJZZa EcE2TDUwWQptDM6SqYWzMBywNIMaSFNtOwGtOPHnFZSlGLQgBZSdDXPUTH9HIxKwM2IalS45ZKAJQv4+ CKfcuxUjNhkJFlJhORByb5BbSHr7NB7NVBUtEapkk3CiViNsMFZKTQmiVF7EIEI3BGYvCDZgPp9JPAXj A032yuIxGM0JHv1IAqLxTK1ibh1OAyVgPVMtYjwRHk z2WKkkYQ7CvQDyMXuXpo6tukDtmpCWu7YrtfWouKUHUC9vyIIzknZYMZrxwCubhabvMcCpKWYqZc2sQh 2nKCPyUCKwJdIfOREFKD7GZBLtOOItjRDoQGTfUMHNTQ8ANLwlUWR2MXIrukRzzQRuUBthRC9DPBTvif QgMzEgMCBSDQo+Wg6ONO8yi8YeWMdvPzRzWQ2ejh4N HXxTPpLrH5S5yHHvH2U4XDlhUr4AKDFfQNWwSlpzPKYGGUbaEX5TVX7nahX9IA3IvOZkPJTdCCJdwWJd IXe3V74trPIlXZfiPM1IGAF+Natalie+Jx5DEPKeLXUlIYEnNnKzOKBTMaJfF1HeF5SBs3PgJ6QdWU44hDav nsIfAQskZY0OPY5nHHSkXBDJTW1GbLHdsT5emsUgGH GeCNZUZrJhM09fdWKtMDXnEVNxDSBeOi7QRZPoX5ZtgnSgvIrjvuUtGNAxQJHRUM1JQCmvnvXulLNryR jgIH27lWtzYV1LQk5VEtSqET5krm1XrSFiWh5QCFXnYR6SOSMuOQKpJJNcETQ6ITMtNvKnLRmpITAwXG TyKZF9ZBIaDBJzGZ4YVnErEQTlOlwxXEnwFBZtJUXd sy7WZVDoBDSdVNu7LDWpVFFcLHIcTNbyGVPqBYFgUKP9PCMmJXKsKF3BSiRcQJRtYSQzLXecJUOdCNIk it6NUALvQSZaTwVyIwWhCJTaAQStXMrrRYQzRWT1TFi6FQLdQMZnWY0BUvJdWRYaHDS8CSZyZXCbOZRp tw8JKFYlOIOvJPQ6VwMtMSOtNQYnUQghKUOdZAG5KP m3BYOgXYRuLX0GZrDaTQFhAJCvLlHnKHUrNQYyxe5BFKTeJNOfPRApUXVvMCQxGDAfFEuzFMMxOEIoHm m2VNWbPBZiFS1HJgGiZGDmEFT9EYUzKUYnPVYcap2MVPKsTRVcOjd2HHAvBICqBDLiWSioFJJiBVOpNi V9ATYqCVDcBJ2FTpLhFJHxSGX6DmFfFLHxEQVgcy8N RXXuFYVoPGNkAANuYHAoOYXfVJujTLWeIDU7DBX5ARByWPPtWA9WChDfKHJhHuW8LePzQVXwPPXtdp9I PLLsGXNcVjX3YoQbTIEcKZPkPGdeWMUuBLJ7PvNnRMVgYWFoPT7YHuVyWEVbPyL2ZhsqVJGgLNFgde3I RBPoNUJtFtYdKIApUZIwAQOiQQboJWOnVPN6IoMoOH DqKQRxBB8EAlKnXJDnTxs6NTUxUDXhKNUdna3XKFExTESdPXuzXWPxTWEqEFWwSMouIJBiLDV0VPX9GV RxTOFwZA7DHiDqGTWpLxzhJPDrWSOhTLQwmq4FFFWmISDaQXBfZIAaWJQbXBVfOPlpJQXjPVFzGEt5QU PtSHYsST6QMqObMUHlAgRbNRpcWBKoSFWyqs8RLCMi YQQcDJM6RSMqNOBsAFJsNHb4fsOjbTFtDQe3ML3AB2RkguOgJzKTLe1Lt773ZACfQDUqEj4UA4ktWy7g FMPbWCPHPl7QBXb4BqB4QDu7ADV1ODFsTDM5CImjHCH6RAIpHYUlEBJ5ZhE+CUpaGKR6IKJ1MlpeE9A1 PYv9VAG1CTo3WqCoSoS5VgjiDj1xMLHTUj2+PSrqgFOezAphSEZWPaNaAXAzKOwlFQJFTj7Q ID Date Data Source [id number] 03/17/2021 02:10:00 PM [facility] Molecular Genetics ReportName: BRAYAN PRADOMRN: [id number] Number: [id number] Date: 03/03/2021 15:32Received Date: 03/06/2021 11:20Physician(s): JOSIANE GOODMAN,ENROBER TENDER JOSIANE GOODMAN,NPSpecimen(s) ReceivedA: Peripheral Blood-CF TYPE OF STUDY: CYSTIC FIBROSIS, CFTR, DIRECT MUTATION ANALYSISINDICATION FOR TESTING: Population carrier screeningRESULTS: This patient does NOT carry any of the 60 CFTR gene mutationstested. INTERPRETATION: Assuming this patient is asymptomatic, Non-HispanicCaucasian, and has no family history of cystic fibrosis (CF), their apriori population ri sk of being a carrier of a CFTR gene mutation is about1 in 25. Based on the current test result of being negative for the 60mutations tested, by Bayesian analysis, her CF carrier risk is reduced toapproximately 1 in 256. Her CF carrier risk will be different if she isof a different racial/ethnic group.There is no information provided for the patient's present partner. Making the same assumptions as above and using the Non- Caucasianpopulation carrier risk for her untested partner, the risk of CF in achild from this couple is about 1 in 25,600. The risk of CF in a childwill be different if her partner is of a different racial/ethnic group.Genetic counseling is recommended.COMMENTS: Cystic fibrosis (CF) is an autosomal recessive genetic disorderand both parents of an affected child should be carriers of the disease. While more than 2,000 CF mutations have been described, the 60 CFmutations tested have a combined detection rate of about 90% of the CFchromosomes found in the [place] population. The detection rate isdependent upon the racial/ethnic ancestry and is typically lower. Mutations have been classified according to GenBank Legacy mutation names have been used - please contact the labregarding more recent changes to the nomenclature if needed.METHOD: DNA isolated from the patient was tested using the Contour, LLCAGCystic fibrosis 60 kit v2 IVD assay which includes the 23 ACMG- recommendedmutations (in bold) plus additional global and/or [place] prevalentmutations: Delta F508, Delta I507, G542X, G85E, R117H, 621+1G>T,711+1G>T, R334W, R347P, A455E, 1717-1G>A, R560T, R553X, G551D, 1898+1G>A,2184delA, 2789+5G>A, 3120+1G>A, T5591M, 3659delC, 3849+10KbC>T, F3056A,Y1651Q, 1078delT, 394delTT, Y122X, R347H, V520F, A559T, S549N, S549RT>G, 1898+5G>T, 2183AA>G, 2307insA, R2541UU>A, A9698IK>G, P4945S, R6639S(ex.19 [P6592Y]), M8995A (ex. 20), 3876delA, 3905insT, E60X, R75X,406-1G>A, G178R, L206W, 935delA, G330X, Q493X, 1677delTA, 8044zpq3>A,2143delT, K710X, 3791delC, Q890X, 5895nht4, E6332J, Q1828M, Z6400L,V3441J, CFTRdele2,3 and C7066W. In addition, the IVS8-5T/7T/9T variant isreflex tested only in individuals with the R117H mutation and the F508C,I507V and I506V variants are only reflex tested in individuals with aDelta F508 or Delta I507 mutation. This test is intended for CF carriertesting and confirmatory diagnostic testing and should be used inconjunction with other available laboratory and clinical information.References: Eusebio et al., 2017 Cystic Fibrosis and Congenital Absence ofthe Vas Deferens [Efrain Haines et al., 3329-5154, [facility], 5267-9991]; www.cftr2.org; Allie S et al (1993)Nature Genetics 5(3):274-277; Arun ECHOLS et al (2004) Genetics in medicine6(5):387-91; http://[email or web address]/[email or web address].The laboratory maintains quality assurance supervisor chassis and quality control director programs toensure a high quality of testing. This test is designed for CF carrierand confirmatory diagnostic umang ting; test results should be interpreted inthe context of clinical findings, family history, and other laboratorydata, and should not be used as the sole criteria for diagnosis ofconditions related to this genetic variant(s). Rare genetic variants thatmimic or mask the mutations being tested, though rare, should beconsidered. The risk analysis could change if molecular data from otherfamily members were available. Any family history used in theinterpretation is assumed to be correct and we ask that it remainconfidential. [email or web address] Signed By Marco Avendaño, Ph.D., [facility] [place] [facility] [place] MolecularGeneticist 03/17/2021 14:10:19 Name Value Range Interpretation Code Description Data Tami rce(s) Supporting Document(s) ID Date Data Source [id number] 03/03/2021 09:38:47 PM EDT [facility] Name Value Range Interpretation Code Description Data Tami rce(s) Supporting Document(s) Protein [Mass/volume] in Urine 202 mg/dl [facility] Confirmed Creatinine [Mass/volume] in Urine 59.3 mg/dL [facility] Protein/Creatinine [Mass Ratio] in Urine 3.41 mg/mg{creat} [facility] ID Date Data Source [id number] 03/03/2021 02:02:03 PM EDT [facility] Name Value Range Interpretation Code Description Data Tami rce(s) Supporting Document(s) Color of Urine [facility] Clarity of Urine [facility] Glucose [Mass/volume] in Urine by Test strip Negative [facility] Bilirubin.total [Presence] in Urine by Test strip Negative [facility] Ketones [Mass/volume] in Urine by Test strip Negative [facility] Specific gravity of Urine by Test strip 1.020 1.005-1.025 [facility] Hemoglobin [Presence] in Urine by Test strip Negative [facility] pH of Urine by Test strip 6.0 5.0-8.0 [facility] Protein [Mass/volume] in Urine by Test strip Negative [facility] Urobilinogen [Units/volume] in Urine by Test strip 0.2 {Ehrlich_U}/ dL 0.2-1.0 [facility] Nitrite [Presence] in Urine by Test strip Negative [facility] Leukocyte esterase [Presence] in Urine by Test strip Negat isabel [facility] ID Date Data Source [id number] 03/15/2021 04:12:00 PM T [facility] Molecular Genetics ReportName: BRAYAN PRADOMRN: [id number] Number: [id number] Date: 03/03/2021 00:00Received Date: 03/06/2021 11:26Physician(s): JOSIANE GOODMAN,ENROBER TENDER JOSIANE GOODMAN,NPSpecimen(s) ReceivedA: Peripheral Blood-[facility] for SMATYPE OF STUDY: Spinal Muscular AtrophyCOMMENTS: A peripheral blood sample for this patient was sent to [facility], [place], [id number] foranalysis. Please see order in EPIC under Labs tab for scanned externalreport.See report for final results and interpretation.sr/jsElectronically Signed By Marco Avendaño, Ph.D., CATHERINE, [facility] MolecularGeneticist 03/15/2021 16:12:02 Name Value Range Interpretation Code Description Data Tami rce(s) Supporting Document(s) ID Date Data Source [id number] 02/15/2021 04:57:28 PM [facility] Name Value Range Interpretation Code Description Data [facility] rce(s) Supporting Document(s) Progress Note [facility] NBQENw2bOdVTOnMo46/FARjsMIWuq9XjKFzrESo6EDtiEDSrN0QhOLQ9gM2bTZP5TWiWGpYlDhSwTzEa lbm [file] ICAgICAgICAgICAgICAgICAgICAgICAgICAgICAgICAgICAgICAgICAgICAgICAgICAgICAgICAgICAg ICAgICAgICAgICAgICAgICAgICAgICAgICAgICAgIC ANCiAgICAgICAgICAgICAgICAgICAgICAgICAgICAgICAgICAgICAgICAgICAgICAgICAgICAgICAgIC AgICAgICAgICAgICAgICAgICAgICAgICAgICAgICAgICAgICAgICAgICANCiAgICAgICAgICAgICAgIC AgICAgICAgICAgICAgICAgICAgICAgICAgICAgICAg ICAgICAgICAgICAgICAgICAgICAgICAgICAgICAgICAgICAgICAgICAgICAgICAgICAgICANCiAgICAg ICAgICAgICAgICAgICAgICAgICAgICAgICAgICAgICAgICAgICAgICAgICAgICAgICAgICAgICAgICAg ICAgICAgICAgICAgICAgICAgICAgICAgICAgICAgIC AgICANCiAgICAgICAgICAgICAgICAgICAgICAgICAgICAgICAgICAgICAgICAgICAgICAgICAgICAgIC AgICAgICAgICAgICAgICAgICAgICAgICAgICAgICAgICAgICAgICAgICAgICANCiAgICAgICAgICAgIC AgICAgICAgICAgICAgICAgICAgICAgICAgICAgICAg ICAgICAgICAgICAgICAgICAgICAgICAgICAgICAgICAgICAgICAgICAgICAgICAgICAgICAgICANCiAg ICAgICAgICAgICAgICAgICAgICAgICAgICAgICAgICAgICAgICAgICAgICAgICAgICAgICAgICAgICAg ICAgICAgICAgICAgICAgICAgICAgICAgICAgICAgIC AgICAgICANCiAgICAgICAgICAgICAgICAgICAgICAgICAgICAgICAgICAgICAgICAgICAgICAgICAgIC AgICAgICAgICAgICAgICAgICAgICAgICAgICAgICAgICAgICAgICAgICAgICAgICANCiAgICAgICAgIC AgICAgICAgICAgICAgICAgICAgICAgICAgICAgICAg ICAgICAgICAgICAgICAgICAgICAgICAgICAgICAgICAgICAgICAgICAgICAgICAgICAgICAgICAgICAN CiAgICAgICAgICAgICAgICAgICAgICAgICAgICAgICAgICAgICAgICAgICAgICAgICAgICAgICAgICAg ICAgICAgICAgICAgICAgICAgICAgICAgICAgICAgIC AgICAgICAgICANCjw/tELkO6oafRNvumM1K0qiCh6THf6RAP9sn9ZqCEKxTAahbxSyNwfGOjVnETWsNc lUAey0XIsyCC5YkEGkB1ReX9VxDEzePM9SOJJzWGDcsWNyMYYjXTCwKuC2RMZiVZtgIQ9GaELeJAtrAR LyFGNmZS3TTKNsH753fnFyUC4VVl2DVgPvKB8fsp6R DfUoIPNtLotKQjg7SHpgNB6RmFAhaDFfNaYqYHTHRrScF8rnb6CyCpIwLUSMXDknGV9Xa3SanGQnFWv+ Qy1NXS1kg9FzGAuxGdHdLF0jkw1YRFxJZpAhD2EpzItxNSUrc7jmGWXbIY6edEKrKCJ0ZGMsOsBkdJZG LAVchLLoyv7qdomiLWDvJCSfEm2wQU7yFISxPHJkUu IwVSMMPH1SSFVgYJMamQYeAWIxCSSONA6GJZzpBXT0HLIccrAivZOmJUhiPN9RKJGdygPtLfTfYLVHRE o+Cu3LQU5jm5JjDWxpOEByBE4cnc4JWCqIJbAaV3N9wEQkD2K0OIceHr0IGTTiGCJbVkKgWDTLMEilFH 7BQG5viaK6AK9FqDRgJWJfWJYytNMvCQc9J68rdXOh XXggQF1BPSI+Natalie+Ir3OXBVlNOIiNPYrXpAhNCYKRhUuO1ObP7GBu7MqT0SuVE67vAqxecPtDMfsHA2V DR8uHUYuZMRXCY4IkARmnO1ybnRiNrHpATLALiVzS55cxYYtROIjFUTsAYWsWh8TGUDjU0EnlnZfbDpo jzBtLKQdFWXUSK6FJOeampStsWHnfMqeHS74bUqpJH 1WPw6TMxKbUE3aap3CyCWsZp7PPLUiIZ4ZIHVeNYMkGJTfSRA3GBRlNkThEXtpXXNtUQFhTKA6EFInXC MbKA0WHqNfCHXkWVzyDxAsESKvIHOgkj0FIBBoJAObYWfpTSCtLBXxDTRvUGjhWUWxCYZhWJT4VRXnRG KbQL8SMqWqFKJxKHR7EUGhVGOtHMKzos4ROFQkWEUe THrnXLSlFGDzVHHgCMkiQVNuAUBwBCY2FAVcVNXnER7JMkMqWNLoIMPpKXTnTYPxQUZrtf2JEEQiYWEc LoRsXBOiYUNcPPBbPRljFNFnMQP1RPenIXAdVGLsAM7QQuCsCAFzGHXaNITdAYJsAOMonm6DMSBiDOQj GJQ9ZyEmMZTwEGNxUMimBLLpFUA4FVS1WEBrCTLcCE 0RXtJrWVHgEBXnDZEuMDTvIOLpjz9XJOSfCTYcWaT3ZjLbQQPjUSEmQTytPKCfZMQ7OaHuJREfTFQbLE 1DCzBsWDLgMNN5XXbrWAZoGUIcnl7EDGHyAOKiBnc7QuAuCRRbTXFtYIznRZWuEYQ4XGwxHUAqRMXaDE 7MSwNwTPHqAScxATJdRNRnUTXpcb1AABRjVAUoKCA0 CCAfGAAbYRLnVQqqJVQfPHU1GZx4VQNwZHJlFX1TQoIjYVFlDyBdJpttKJUwFGFnvp2TKCFuYKHjMMBb PjBxOUHrUXCwFVl9tvVidCUtJNb7ET8DK9RgcnYsRnTMWy3Gb820KEN3GUJqRc5TS1dnNq9yHIGsXTUI Xj3USPc4LvR5KUT4WuN4BYDuPrzuMqx4LPAnWLV3OI FmODlhYzM+CKbnPSs0QbV5IGHsUsAeS5V8EcJzEJSyVVz5ESX4JVOeIs8cBLQYCb3+DQpzdGFydHhyZW DCWwUgFQJ5CEsxOXTFHh2U ID Date Data Source [id number] 02/14/2021 04:07:30 PM [facility] Name Value Range Interpretation Code Description Data Tami rce(s) Supporting Document(s) Progress Note [facility] JCEZDr8fPjLHGgDe78/WOAgyUJSxy3KiYMkuTKv2ONrmHHQqD5GyDXT4zJ8wEHV9POlVTeMaVxWrOoZ6 lbm [file] T0YNCg== ID Date Data Source [id number] 02/14/2021 02:22:08 PM EDT [facility] Name Value Range Interpretation Code Description Data Tami rce(s) Supporting Document(s) Progress Note [facility] ASYBZf4kViOPJzAb42/JGDavUKKvu6WrTPdcRKl0HRuhLPTyR9TcSBK9gP1iBBZ5FOyWFuLmCiYnVzI7 lbm [file] ICAgICAgICAgICAgICAgICAgICAgICAgICAgICAgIC AgICAgICAgICAgICAgICAgICAgICAgICAgICAgICAgICAgICAgICAgICAgICAgDQogICAgICAgICAgIC AgICAgICAgICAgICAgICAgICAgICAgICAgICAgICAgICAgICAgICAgICAgICAgICAgICAgICAgICAgIC AgICAgICAgICAgICAgICAgICAgICAgICAgICAgDQog ICAgICAgICAgICAgICAgICAgICAgICAgICAgICAgICAgICAgICAgICAgICAgICAgICAgICAgICAgICAg ICAgICAgICAgICAgICAgICAgICAgICAgICAgICAgICAgICAgICAgDQogICAgICAgICAgICAgICAgICAg ICAgICAgICAgICAgICAgICAgICAgICAgICAgICAgIC AgICAgICAgICAgICAgICAgICAgICAgICAgICAgICAgICAgICAgICAgICAgICAgICAgDQogICAgICAgIC AgICAgICAgICAgICAgICAgICAgICAgICAgICAgICAgICAgICAgICAgICAgICAgICAgICAgICAgICAgIC AgICAgICAgICAgICAgICAgICAgICAgICAgICAgICAg DQogICAgICAgICAgICAgICAgICAgICAgICAgICAgICAgICAgICAgICAgICAgICAgICAgICAgICAgICAg ICAgICAgICAgICAgICAgICAgICAgICAgICAgICAgICAgICAgICAgICAgDQogICAgICAgICAgICAgICAg ICAgICAgICAgICAgICAgICAgICAgICAgICAgICAgIC AgICAgICAgICAgICAgICAgICAgICAgICAgICAgICAgICAgICAgICAgICAgICAgICAgICAgDQogICAgIC AgICAgICAgICAgICAgICAgICAgICAgICAgICAgICAgICAgICAgICAgICAgICAgICAgICAgICAgICAgIC AgICAgICAgICAgICAgICAgICAgICAgICAgICAgICAg ICAgDQogICAgICAgICAgICAgICAgICAgICAgICAgICAgICAgICAgICAgICAgICAgICAgICAgICAgICAg ICAgICAgICAgICAgICAgICAgICAgICAgICAgICAgICAgICAgICAgICAgICAgDQogICAgICAgICAgICAg ICAgICAgICAgICAgICAgICAgICAgICAgICAgICAgIC SlGNRtQHAiUVKaHJOgQQGsATJwAIVkDHSmLSZrSIOgBOWaSHKeIGYbNXOuCPSsMWWvYBKnFGFjQOj0L0 wcLIEsQPOgFD5zMNy6Qk8+CVeDZgRqYCW2zgWfkD2ZIL9kt3AfTWfeLJXcv5CfIJi6GX4VGGReKAqpOO 2UZDwasq3ATSVaHZVanNNOk2jnLcDyDYA4ZOMoGxss KH0UPWUkT3rxuzUdJSSlWAWKOVwgSRYVZBqjPHBAZO8LCgXtZ2FjgP64AGRAXb8+DQplbmRvYmoNCjI2 KBKey9CsTWo5SX2SDXLbQdanc8EvOwioFMTHBQunPO9NWQN8VYZ1OJHvHs3ZXXMtM024ewSvUZ1XCd6V DgViKA9vki1EHwbzWWAeIsqPMoz9NWpzJO5BmFXeAH zNwi1ljoJdybXZx7KgdfSusCVJaZwzFX8oJC8pFQPjbLUsQVAUSCusB1MGSGRLUZSpLQQnXo8gMQ1oAK BkNOBpYoSqGSAOHB7JJDCdTOWvhLEnXUOsOTCAMB6TYLztSKA1KENjcfIvfPEbEGccWI2HWNUrmcDeIr YgMCBSDQo+Ms1WGT0et1BvQXlgPNFoRP7pbc0VKEbG OzPtA9C8zGKrY4B8EDeeMw3VITWgPYRfLtHbEXZGUYkuVX4UNJ8giiP5OE0JeYGfIIBmGFAouTLxBWj3 Z08dhRYqLZyrJL4ZPIE+Natalie+Qa0RABAuHGItDAXzJhUqVEUGKdWoZ1YtZ6GYb3BwS6BwNB65qIdxkpDy WOcjRP9HED1dXZOxVFFFGP1JkOCbsF8zuhSkOcFoRD OOXfIsV03ueKRoVFSrMAT9SCPrNc8HEUCcI6SggdOzaKzwmnGyXTHjNLAMTH3ZOXpacpFpdSLujObeTL 38aXcuUC4UNa8SAxUiQY5zta6UdAZeHt3WALUmMU0MHVOqVHXjNHRwHPC0SYVlKbVmOPpcHXPsRDCbNT J0ZFXjUCCzHB3RVcOfAFBlGtC7AJJcBFBtDJVefz3S QZPoWWXdDrIdQLTrZDNhOTFmERpiSQBvXKXrTXB6KRWpPBFySU7KLtZiEFKdRXRaFFRwBWJmFIDcgt9T AHCpJPAhBbG7BhZiYAQnCROfBZucYFPqVXF7XHI6HFFrKRFfEQ2HPqKqRSXhHRxbAwOxSOFdQDDzrn1M NKAzKBXcOGfgXoOjXXYeHUYyUKjvIOUyIGQ0CYN4DE EvXOVcKN5CIcPbBMAkLWMdYpJuXDXcTTNcta2TXQWnFGLjMSD0GtCrWCTkXNWvZOgmBTNiJHMyZJD9RE NlAZYnBC8ENjJdRUDnXFT6NAVlVPUgMBJnrq6XALByJJJzKYSxBrHnIWPfLEUgBYieCAFlZXPjKFJ6KP OpKRClDQ1CXnBpSZXnYsNkLxHdTGGvVMRlfh0ZUISv MCBdRaF0ACEiNKObAKPtMKqlIGGhGRVaUjU8TFWcMZWyQS9LZuLzAAMdWzKxBDoxQUWiYKMsqn9NMWMc RTSgPDE4TAEnJESsZDLkQVlzCILdRTQ8ZUG9SNSlOGOmPU0HGkBiIECoKkHqVKBcVPXtGJDodf1OBBGf XMPwBVG3FZPzDILpRPEdHLwsEQCdZBU8BMf7LFDfQU ZiUD4HVtTrLXAsXnhnKnffHZFuQNLjpp1LLCRmNPQbYjZ6CZNzOMYyFRQjFSzzXSOtJTT0EUDtXNGrCJ IdWC4UZiPoMVvgNFHGQtz3IXvbI5z4HIYiVL7FQ1Jcq6RnFfigXWRJRDezAR1plgAxKTVjYc4MQ4lLQj awKECoYFu1UQD2WixdC3W8DqG3CyUcGrVzJGK9KxQo Ob7nSWV9ELB4TrqxIGJmJAFsGoF8MvAiT8GgOMFzRbIvJSW9OfMsDE0CMn4VLyA4DQP1bIKmYn7JPwk5 VGNEOtOaRN5VXIv= ID Date Data Source [id number] 02/14/2021 01:40:22 PM EDT [facility] Name Value Range Interpretation Code Description Data Tami rce(s) Supporting Document(s) Color of Urine [facility] Clarity of Urine [facility] Glucose [Mass/volume] in Urine by Test strip Negative [facility] Bilirubin.total [Presence] in Urine by Test strip Negative [facility] Ketones [Mass/volume] in Urine by Test strip Negative [facility] Specific gravity of Urine by Test strip 1.020 1.005-1.025 [facility] Hemoglobin [Presence] in Urine by Test strip Negative [facility] pH of Urine by Test strip 6.0 5.0-8.0 [facility] Protein [Mass/volume] in Urine by Test strip Negative A [facility] Urobilinogen [Units/volume] in Urine by Test strip 0.2 {Ehrlich_U}/ dL 0.2-1.0 [facility] Nitrite [Presence] in Urine by Test strip Negative [facility] Leukocyte esterase [Presence] in Urine by Test strip Negat isabel A [facility] ID Date Data Source [id number] 01/31/2021 04:49:15 PM EDT [facility] Name Value Range Interpretation Code Description Data Tami rce(s) Supporting Document(s) Progress Note [facility] QXITYj0oKvLCNcJv06/FUXjpEFGkx8BfFNexIBg8IKhvRQQwL4FjHUD7oU0aYRL1PXhCHbCmLlTiOjQ6 lbm [file] ItPF4KLVv= ID Date Data Source [id number] 01/31/2021 08:25:20 PM [facility] Name Value Range Interpretation Code Description Data Tami rce(s) Supporting Document(s) Thyroxine (T4) free [Mass/volume] in Serum or Plasma 1.02 ng/dL 0.93- 1.70 [facility] ID Date Data Source [id number] 01/31/2021 08:25:20 PM [facility] Name Value Range Interpretation Code Description Data Tami rce(s) Supporting Document(s) Thyrotropin [Units/volume] in Serum or Plasma 1.790 u[IU]/mL 0.270-4. 200 [facility] ID Date Data Source [id number] 01/31/2021 08:25:20 PM [facility] Value Range Interpretation Code Description Data Tami rce(s) Supporting Document(s) Urate [Mass/volume] in Serum or Plasma 5.6 mg/dl 2.4-5.7 [facility] ID Date Data Source [id number] 01/31/2021 08:25:20 PM [facility] Value Range Interpretation Code Description Data Tami rce(s) Supporting Document(s) Albumin [Mass/volume] in Serum or Plasma by Bromocresol green (BCG) dye binding method 3.6 g/dL 3.5[facility] Bil[facility].total [Mass/volume] in Serum or Plasma <1.2 [facility] Calcium [Mass/volume] in Serum or Plasma 10.0 mg/dL 8.6-10.0 [facility] Chloride [Moles/volume] in Serum or Plasma 101 mmol/L 98-107 [facility] Creatinine [Mass/volume] in Serum or Plasma 0.80 mg/dL 0.50-0.90 [facility] Glucose [Mass/volume] in Serum or Plasma 77 mg/dL 70-140 [facility] Alkaline phosphatase [Enzymatic activity/volume] in Serum or Plasma 123 U/L 35-104 H [facility] Potassium [Moles/volume] in Serum or Plasma 4.1 mmol/L 3.4-5.1 [facility] Protein [Mass/volume] in Serum or Plasma 7.6 g/dL 6.4-8.3 [facility] Sodium [Moles/volume] in Serum or Plasma 136 mmol/L 136-145 [facility] Aspartate aminotransferase [Enzymatic activity/volume] in Serum or Plasma 23 U/L <32 [facility] Urea nitrogen [Mass/volume] in Serum or Plasma 11 mg/dL 6-20 [facility] Osmolality of Serum or Plasma by calculation 280 mosm/kg 275-300 [facility] Creatinine/Urea nitrogen [Mass Ratio] in Serum or Plasma 14 [facility] Bicarbonate [Moles/volume] in Serum 23 mmol/L 22-29 [facility] Alanine aminotransferase [Enzymatic activity/volume] in Seru m or Plasma 27 U/L <33 [facility] Anion gap 3 in Serum or Plasma 12 mmol/L 8-15 [facility] Glomerular filtration rate/1.73 sq M pre dicted among non-blacks [Volume Rate/Area] in Serum or Plasma by Creatinine-based formula (MDRD) >6 0 [facility] Glomerular filtration rate/1.73 sq M pre dicted among blacks [Volume Rate/Area] in Serum or Plasma by Creatinine-based formula (MDRD) >60 [facility] ID Date Data Source [id number] 01/31/2021 08:13:56 PM EDT [facility] Name Value Range Interpretation Code Description Data Tami rce(s) Supporting Document(s) Hemoglobin A1c/Hemoglobin.total in Blood by HPLC 7.6 % 4.0-6.0 H [facility] (NOTE)<5.7% Average risk of diabetes (ADA)5.7-6.4% Increased risk of diabetes(ADA)>/= 6.5% Diagnostic for diabetes(ADA) Glucose mean value [Mass/volume] in Blood Estimated fr om glycated hemoglobin 171 mg/dL <126 H [facility] ID Date Data Source [id number] 12/18/2020 09:00:00 AM EDT [facility] Name Value Range Interpretation Code Description Data Tami rce(s) Supporting Document(s) SARS coronavirus 2 RNA [Presence] in Res piratory specimen by SACHIN with probe detection NEGATIVE [facility] This lab was ordered by [facility] a nd reported by [facility]. ID Date Data Source [id number] 12/18/2020 04:30:00 AM EDT [facility] ([facility]) Name Value Range Interpretation Code Description Data Tami rce(s) Supporting Document(s) Appearance, Urine Laboratory test result Above high normal [facility] ([facility]) Color, Urine Laboratory test result Normal (applies to non -numeric results) [facility] ([facility]) Specific Howe Urine Auto 1.022 1.002-1.035 Norm al (applies to non-numeric results) [facility] ([facility]) Protein, Urine Auto Laboratory test result Above high norm al [facility] ([facility]) PH,Urine 5.0 units 5.0-9.0 Normal (applies to non-numeric resul ts) [facility] ([facility]) Glucose, Urine (Ua) Auto Laboratory test result Above high normal [facility] ([facility]) Ketone, Urine Auto Laboratory test result Above high cinthia l [facility] ([facility]) Urobilinogen, Urine Auto 0.2 mg/dL 0.0-2.0 Normal (applies to non-numeric results) [facility] ([facility]) Bilirubin, Urine Auto Laboratory test result Nor mal (applies to non-numeric results) [facility] Nitrite, Urine Auto Laboratory test result Cinthia l (applies to non-numeric results) [facility] ([facility]) Leukocyte Esterase, Urine Auto Laboratory test result Abov e high normal [facility] Blood, Urine Blood Laboratory test result Normal (applies to non-numeric results) [facility] WBC, Urine Auto 10 /HPF 0-3 Above high normal [facility] ([facility]) RBC, Urine Auto 11 /HPF 0-3 Above high normal [facility] ([facility]) Bacteria, Urine Auto Laboratory test result Above high nor mal [facility] ([facility]) Squamous Epithelial Cell Ur AU 10 /HPF 0-6 N ormal (applies to non-numeric results) [facility] ([facility]) Mucus, Urine Laboratory test result Normal (applies to non -numeric results) [facility] Hyaline Cast, Urine Auto 0 /LPF 0-1 Normal (applies to non -numeric results) [facility]) ID Date Data Source [id number] 12/18/2020 03:02:00 AM EDT [facility] ([facility]) Name Value Range Interpretation Code Description Data Tami rce(s) Supporting Document(s) Glucose [Mass/volume] in Capillary blood by Glucometer 124 mg/dL 70-[address] [facility]) ID Date Data Source [id number] 12/18/2020 01:37:00 AM EDT [facility]) Name Value Range Interpretation Code Description Data [facility](s) Supporting Document(s) Lipase [Enzymatic activity/volume] in Serum or Plasma 43 U/L 73-[address] [facility]) 0227] @---END MOBILAB COMMENT--- Choriogonadotropin.beta subunit [Moles/volume] in Serum or P lasma [id number] MIU/ML Normal (applies to non-numeric results) [facility]) GESTATIONAL AGE APPROXIMATE HCG RANGE (MIU/ML) - [...] or monitoring the treatment of cancer patients. Siemens L[employer]star methodology. Thyrotropin [Units/volume] in Serum or Plasma 1.480 uIU/ML 0. 358-3.740 Normal (applies to non-numeric results) [facility]) 0227] @---END MOBILAB COMMENT--- ID Date Data Source [id number] 12/18/2020 01:37:[facility] Name Value Range Interpretation Code Description Data Tami rce(s) Supporting Document(s) Glucose, Fasting 115 mg/dL 70-100 Above high normal [facility] Creatinine For GFR 0.84 mg/dL 0.55-1.30 Normal (applies to non -numeric results) [facility] Blood Urea Nitrogen 10 mg/dL 7-18 Normal (applies to non-nume jayda results) [facility] Sodium Level 137 meq/L 136-145 Normal (applies to non-numeric res ults) [facility] ([facility]) Glomerular Filtration Rate Laboratory test result Normal (applies to non- numeric results) [facility] ([facility]) <content>Units are mL/min/1.73 m2</content>
<content></content>
<content>Chronic Kidney Disease Staging per NKF:</content>
<content></content>
<content>Stage I & II GFR >=60 Normal to Mildly Decreased</content>
<content>Stage III GFR 30-59 Moderately Decreased</content>
<content>Stage IV GFR 15-29 Severely Decreased</content>
<content>Stage V GFR <15 Very Little GFR Left</content>
<content>ESRD GFR <15 on SECTION HAND HELPER</content>
<content></content> Potassium Serum 4.3 meq/L 3.5-5.1 Normal (applies to non-numeric results) [facility] ([facility]) Chloride Level 106 meq/L 98-107 Normal (applies to non-numeric r esults) [facility] ([facility]) Carbon Dioxide Level 25 meq/L 21-32 Normal (applies to non-num alannah results) [facility] ([facility]) Calcium Level 9.3 mg/dL 8.5-10.1 Normal (applies to non-numeric re sults) [facility] ([facility]) Anion Gap 6 meq/L 8-16 Below low normal [facility] ( [facility]) ID Date Data Source [id number] 12/18/2020 01:37:00 AM EDT [facility] ([facility]) Name Value Range Interpretation Code Description Data Tami rce(s) Supporting Document(s) Alt/SGPT 30 U/L 12-78 Normal (applies to non-numeric resul ts) [facility] ([facility]) Ast/Sgot 21 U/L 7-37 Normal (applies to non-numeric resul ts) [facility] ([facility]) Alkaline Phosphatase 103 U/L 45-117 Normal (applies to non-num alannah results) [facility] ([facility]) Bilirubin,Total 0.2 mg/dL 0.2-1.0 Normal (applies to non-numeric results) [facility] ([facility]) Bilirubin,Direct Laboratory test result 0.0-0.2 Normal ( applies to non-numeric results) [facility] ([facility]) Albumin/Globulin Ratio 0.7 1.2-2.2 Below low normal [facility] ([facility]) Albumin 3.1 GM/DL 3.2-5.2 Below low normal [facility] ( [facility]) Total Protein 7.6 GM/DL 6.4-8.2 Normal (applies to non-numeric re sults) [facility]) ID Date Data Source [id number] 12/18/2020 01:37:00 AM EDT [facility] ([facility]) Name Value Range Interpretation Code Description Data Tami rce(s) Supporting Document(s) Red Blood Count 4.51 10 4.00-5.40 Normal (applies to non-numeric results) [facility] ([facility]) White Blood Count 13.1 10 4.0-10.0 Above high normal [facility] ([facility]) Hematocrit 37.8 % 36.0-47.0 Normal (applies to non-numeric resul ts) [facility] ([facility]) Hemoglobin 12.2 g/dL 12.0-15.5 Normal (applies to non-numeric resul ts) [facility] ([facility]) Mean Corpuscular HGB Conc 32.3 g/dL 32.0-36.5 Normal (applies to non-numeric results) [facility] ([facility]) Mean Corpuscular Hemoglobin 27.1 pg 27.0-33.0 Norm al (applies to non-numeric results) [facility] ([facility]) Mean Corpuscular Volume 83.8 fl 80.0-96.0 Normal ( applies to non-numeric results) [facility] ([facility]) Red Cell Distribution Width 13.7 % 11.5-14.5 Norm al (applies to non-numeric results) [facility] ([facility]) Neutrophils % 78.8 % 36.0-66.0 Above high normal [facility] ([facility]) Platelet Count, Automated 408 10 150-450 Normal (applies to non-numeric results) [facility] ([facility]) Eos % 0.3 % 0.0-3.0 Normal (applies to non-numeric resul ts) [facility] ([facility]) Piatt % 7.0 % 2.0-8.0 Normal (applies to non-numeric resul ts) [facility] ([facility]) Lymph % 13.3 % 24.0-44.0 Below low normal [facility] ( [facility]) Immature Granulocyte % 0.4 % 0-3.0 Normal (applies to non-n umeric results) [facility] ([facility]) Baso % 0.2 % 0.0-1.0 Normal (applies to non-numeric resul ts) [facility] ([facility]) Nucleated Red Blood Cell % 0.0 % 0-0 Normal (applies to n on-numeric results) [facility] ([facility]) Neutrophils # 10.3 10 1.5-8.5 Above high normal [facility] ([facility]) Lymph # 1.7 10 1.5-5.0 Normal (applies to non-numeric resul ts) [facility] ([facility]) Piatt # 0.9 10 0.0-0.8 Above high normal [facility] ([facility]) Baso # 0.0 10 0.0-0.2 Normal (applies to non-numeric resul ts) [facility] ([facility]) Eos # 0.0 10 0.0-0.5 Normal (applies to non-numeric resul ts) [facility] ([facility]) ID Date Data Source [id number] 11/30/2020 12:00:00 AM EDT eCW1 ([facility]) Name Value Range Interpretation Code Description Data Tami rce(s) Supporting Document(s) NEGATIVE NEGATIVE HBsAg eCW1 ([facility]) ID Date Data Source URINE CULTURE 11/30/2020 12:00:00 AM EDT eCW1 ([facility]) Name Value Range Interpretation Code Description Data Tami rce(s) Supporting Document(s) URINE CULTURE eCW1 ([facility]) ID Date Data Source TOTAL PROTEIN,RANDOM URINE 11/30/2020 12:00:00 AM EDT eCW1 ( [facility]) Name Value Range Interpretation Code Description Data Tami rce(s) Supporting Document(s) 50.0 0.0-12.0 TOTAL PROTEIN,RANDOM URIN E eCW1 ([facility]) ID Date Data Source CREATININE,RANDOM URINE 11/30/2020 12:00:00 AM EDT eCW1 ([facility]) Name Value Range Interpretation Code Description Data Tami rce(s) Supporting Document(s) 22.2 CREATININE,RANDOM URINE eCW1 ( [facility]) ID Date Data Source [id number] 11/30/2020 12:00:00 AM EDT eCW1 ([facility]) Name Value Range Interpretation Code Description Data Tami rce(s) Supporting Document(s) Hemoglobin A1c/Hemoglobin.total in Blood 7.7 HEMOGLOBIN A1c eCW1 ([facility]) ID Date Data Source HEPATITIS C ANTIBODY INDEX 11/30/2020 12:00:00 AM EDT eCW1 ( [facility]) Name Value Range Interpretation Code Description Data Tami rce(s) Supporting Document(s) 0.0 <0.8 HEPATITIS C VIRUS ESTEE INDEX eC W1 ([facility]) ID Date Data Source RUBELLA IMMUNE STATUS IgG 11/30/2020 12:00:00 AM EDT eCW1 ([facility]) Name Value Range Interpretation Code Description Data Tami rce(s) Supporting Document(s) IMMUNE IMMUNE RUBELLA IgG QUALITATIVE eCW1 ( [facility]) ID Date Data Source SYPHILIS ANTIBODY (RPR SCREEN) 11/30/2020 12:00:00 AM EDT eC W1 ([facility]) Name Value Range Interpretation Code Description Data Tami rce(s) Supporting Document(s) NONREACTIVE NONREACTIVE SYPHILIS eCW1 ([facility]) ID Date Data Source [id number] 11/30/2020 12:00:00 AM EDT eCW1 ([facility]) Name Value Range Interpretation Code Description Data Tami rce(s) Supporting Document(s) HIV 1&2 ANTIBODY SCREEN eCW1 ( [facility]) ID Date Data Source Pre Eclampsia Profile 11/30/2020 12:00:00 AM EDT eCW1 ([facility]) Name Value Range Interpretation Code Description Data Tami rce(s) Supporting Document(s) > 60.0 >60 GLOMERULAR FILTRATION RATE eCW 1 ([facility]) 1.00 0.55-1.30 CREATININE FOR GFR eCW1 ([facility]) 15 7-37 AST/SGOT eCW1 ([facility]) 4.5 2.6-6.0 URIC ACID eCW1 ([facility]) 0.3 0.2-1.0 BILIRUBIN,TOTAL eCW1 ([facility]) 226 84-246 LDH LACTATE DEHYDROGENASE eCW1 ([facility]) 32 12-78 ALT/SGPT eCW1 ([facility]) ID Date Data Source CHLAMYDIA & GC DNA AMPLIFICAT 11/30/2020 12:00:00 AM EDT eCW 1 ([facility]) Name Value Range Interpretation Code Description Data Tami rce(s) Supporting Document(s) Chlamydia trachomatis rRNA [Presence] in Unspecified specimen by Probe and target amplification method NEGATIVE NEGATIVE CHLAMYDIA DNA AMPLIFICATION eCW1 ([facility]) ID Date Data Source CBC - Complete Blood Count 11/30/2020 12:00:00 AM EDT eCW1 ( [facility]) Name Value Range Interpretation Code Description Data Tami rce(s) Supporting Document(s) 11.3 4.0-10.0 WHITE BLOOD COUNT eCW1 ([facility]) 4.48 4.00-5.40 RED BLOOD COUNT eCW1 ([facility]) 38.7 36.0-47.0 HEMATOCRIT eCW1 ([facility]) 26.6 27.0-33.0 MEAN CORPUSCULAR HEMOGLOB IN eCW1 ([facility]) 11.9 12.0-15.5 HEMOGLOBIN eCW1 ([facility]) 86.4 80.0-96.0 MEAN CORPUSCULAR VOLUME e CW1 ([facility]) 13.8 11.5-14.5 RED CELL DISTRIBUTION WID TH eCW1 ([facility]) 30.7 32.0-36.5 MEAN CORPUSCULAR HGB CONC eCW1 ([facility]) 446 150-450 PLATELET COUNT, AUTOMATED eCW1 ([facility]) ID Date Data Source Type and Screen Prenatal1 11/30/2020 12:00:00 AM EDT eCW1 ([facility]) Name Value Range Interpretation Code Description Data Tami rce(s) Supporting Document(s) NEGATIVE AB SCREEN PNP1 GEL (VIS) eCW1 ([facility]) ID Date Data Source [id number] 11/07/2020 10:56:00 AM EDT [facility] Name Value Range Interpretation Code Description Data Tami rce(s) Supporting Document(s) Inhouse Urine Laboratory test result [facility]) ID Date Data Source [id number] 10/06/2020 12:00:00 AM EST [facility] Name Value Range Interpretation Code Description Data Tami rce(s) Supporting Document(s) SARS-CoV2 Rapid Antigen Negative [facility] lab [facility] and reported by [facility]. ID Date Data Source [id number] 09/27/2020 01:13:35 PM EST [facility] Name Value Range Interpretation Code Description Data Tami rce(s) Supporting Document(s) Progress Note [facility] HSVFYk5cFaIKMnYb79/USOhoDMIcl8ZhLZquSRp8QFdbBALnD6LtGIH7mH2rXCD7IOoZVsTlHePkVwV1 lbm [file] dcnhs1CCjGqShSLE7Hw2g6HxX6iiWLZY0JD0ujowzE/CjeL14Nd3aypIFTLRYv+transition coach/1o3tENWOt4lek [file] AgICAgICAgICAgICAgICAgICAgICAgICAgICAgICAgICAgICAgICAgICAgICAgICAgICAgICAgICAgIC AgICAgICAgICAgICAgICAgICAgICAgICAgICAgICAg ICAgICAgICANCiAgICAgICAgICAgICAgICAgICAgICAgICAgICAgICAgICAgICAgICAgICAgICAgICAg ICAgICAgICAgICAgICAgICAgICAgICAgICAgICAgICAgICAgICAgICAgICAgICAgICANCiAgICAgICAg ICAgICAgICAgICAgICAgICAgICAgICAgICAgICAgIC AgICAgICAgICAgICAgICAgICAgICAgICAgICAgICAgICAgICAgICAgICAgICAgICAgICAgICAgICAgIC ANCiAgICAgICAgICAgICAgICAgICAgICAgICAgICAgICAgICAgICAgICAgICAgICAgICAgICAgICAgIC AgICAgICAgICAgICAgICAgICAgICAgICAgICAgICAg ICAgICAgICAgICANCiAgICAgICAgICAgICAgICAgICAgICAgICAgICAgICAgICAgICAgICAgICAgICAg ICAgICAgICAgICAgICAgICAgICAgICAgICAgICAgICAgICAgICAgICAgICAgICAgICAgICANCiAgICAg ICAgICAgICAgICAgICAgICAgICAgICAgICAgICAgIC AgICAgICAgICAgICAgICAgICAgICAgICAgICAgICAgICAgICAgICAgICAgICAgICAgICAgICAgICAgIC AgICANCiAgICAgICAgICAgICAgICAgICAgICAgICAgICAgICAgICAgICAgICAgICAgICAgICAgICAgIC AgICAgICAgICAgICAgICAgICAgICAgICAgICAgICAg ICAgICAgICAgICAgICANCiAgICAgICAgICAgICAgICAgICAgICAgICAgICAgICAgICAgICAgICAgICAg ICAgICAgICAgICAgICAgICAgICAgICAgICAgICAgICAgICAgICAgICAgICAgICAgICAgICAgICANCiAg ICAgICAgICAgICAgICAgICAgICAgICAgICAgICAgIC AgICAgICAgICAgICAgICAgICAgICAgICAgICAgICAgICAgICAgICAgICAgICAgICAgICAgICAgICAgIC AgICAgICANCiAgICAgICAgICAgICAgICAgICAgICAgICAgICAgICAgICAgICAgICAgICAgICAgICAgIC AgICAgICAgICAgICAgICAgICAgICAgICAgICAgICAg ICAgICAgICAgICAgICAgICANCjw/mJBkE9nkmIEsiyT6D3pjAv4EMd8ZLW9sm1ZzHNOdWQfyeaGsKhaI IeYuWSBcYjnSIho6LAhjBQ0BjXXtP8NvM0DtDLbtLU6PEAIfOKJaqHBnZZSaWZFlUnM3DBCiUZrgSB1V aWRzIFsgNSAwIFIgNyAwIFIgOSAwIFIgMTEgMCBSID VyLAXdDpEjGFBxRUHqPWypUNCCTU9DMiPwZ5LurX07DEnCGx8+ZQenkyElNztEHwAtNZBti9CoGCd6JT 5KBFMeOfjxf0IqNlQpSKLKCJaxKA4ZVYD1WBAlDGMrKx8RMEJrA300qcQoTC3TPr7CQxDrPR4stj0NWz PjHWShHmfJJiy3AUalME3OsWUqHCvXti5adoDxycWL b1TreqQqyMFNPY7ugLEslbYHDKfpjpAweibsHLNJMUC4DHBdZK8eDDCyXOWlIeZlJFJJIZ4KEWLwURDb iZKfJNLdYTJSUW1RSTtjVFD9BBOhkgOzbHFxFVfbJC5JMLNboyKoEuSjIDYMBLt+Xa9SEH8uc5UwXQbp FlHbJQ2obf6NHNxQZwAmP6P3wSHrE7O5GMmvCo5EVT GvSQTgKfgoCBEQGSlcNJ3FRX7qznW7ON4WaXZlOQEtQRQfqNReKFv7S66lsYRkFXsyCY5AOKP+Natalie+Pg 8NABPuUKZyYOGeVdRqQWRIWtKyP1JmL0LTq2NbP9KiIF59cHztjxJfVXdnWZ8IQL8tVHDcPOZGCN4DdN NemQ7ssdPcDEHnLFJQVsNiX76tcMAiNHNjPUNlPPAz Vl4GMRSxK5MvhvPhbQowpiIuXEFcXSYODW4NESgqjzMqeYVrbFulPB73pBkpPP8QOa5KRmQiDN2zni2H oVXsJp8FGDFxRH4HDTMaLCPlFBNvUEP5SHQbVfKkRZxuQVOdLURkGUM1LCMmJVJvUD5NPcJzEZZtUkzl TjOjDPPoYWLhai6COHLuZTIhHBv2OOLfUKVkKSXvEP nwQFOhNYWfQBZ2OEXeLGVqRR0WPaQbABLmWNS4SXItEXAqEOShuo0EMLQzEBSdRnc5WuKfFVLdPNMlKO thADMjOTS5PeF9GMDwMMClWW5AOaVgWDSnTYX1TNhkQKSbNTXoap6HTQGpHKKcZPG0IFQtSFJuELNeRL gnPHJwIJA9PSs6RCPwIOCkRW5WHnAfKKJeYMWzWaDf BCLdKMXjxr9IDOBvTHRsUrV9WLBgVUFqRRByJQscCFXnADJ5VlO4GLRpBDQtUC5BVxTbYLTzTVL8ZMGd WTGnNYRsxs5BGMUoZUWdFFpzXKExGJCxLOXkZVjbGKDwTTI8XAT4CFNtJPBcZS0YAuNqDGLmRpQ5VDfk GQGpPCZaef5BCSMeLOOfHpQ3QTQdUKQwACXtMAsoQW MfDMDmSBD6TUBnPYDiVK6LWbMxMCJrKxBaSLIzYILqPZHakw0EVJQcPQGoDyX6INQzQEJlZCZbDRfnWQ CmKCM6FhA3BZXeIRGcIJ2THlAbKOHvRjL2NUXqMCAcOILiov8MVHAdDREeKSl8HYNmKZEnTYZtGWjgNH FwVXS4LLd7TOMqTXTxLB1LKcNlYBLmKrV3MJkkQRAp HMBmes8PQYVmBYTpHvzzGDCzJDNlGBJcQMoeRNPoBFL6EGV6XRKcNSTdQN3NTgVgCICiSzbtGOKwXPIb LQBwvz5IXNTdIBZlTuWqSJSkSMUkWVUeZEvrZRGzZDQ2NCenQBPrWCGhYS7DVlVyARGvJgbfEFYuRHAd XCXzxa0FTXWhNCTqVTXfChDjSQZnGTHdHCc7prUccR RtRXn2XQ2EU5YleoDvGiASFl9Hm596IWMmGITrPu7NC4txTx8lVFQvIQDRSi8GHEx0MKVvJEGqKyxuHT wiTxFuBfYeOAmyJMlaOYXlULz6HyC+YGctQIH1XhY1RYLfN4YgLyV5NYV3NAEzFNHoOeOxCIruRO2jUP ANCj4+ZOddcBGqsGqqBKSZQcM5NQBbRRtsNLGPTv3Z ID Date Data Source [id number] 09/27/2020 01:13:30 PM [facility] Name Value Range Interpretation Code Description Data Tami rce(s) Supporting Document(s) Progress Note [facility] ZIPJEx0cArMGKyGw87/BQBbaQWAfp5JcHGdmSAv3LKpcGJFqY4RkZIQ4oJ4oAEW0AOzMAoVsQvJiHwR8 lbm [file] AgICAgICAgICAgICAgICAgICAgICAgICAgICAgICAgICAgICAgICAgICAgICAgICAgICAgICAgICAgIC AgICAgICAgICAgICAgICAgICAgICAgICANCiAgICAg ICAgICAgICAgICAgICAgICAgICAgICAgICAgICAgICAgICAgICAgICAgICAgICAgICAgICAgICAgICAg ICAgICAgICAgICAgICAgICAgICAgICAgICAgICAgICAgICANCiAgICAgICAgICAgICAgICAgICAgICAg ICAgICAgICAgICAgICAgICAgICAgICAgICAgICAgIC AgICAgICAgICAgICAgICAgICAgICAgICAgICAgICAgICAgICAgICAgICAgICANCiAgICAgICAgICAgIC AgICAgICAgICAgICAgICAgICAgICAgICAgICAgICAgICAgICAgICAgICAgICAgICAgICAgICAgICAgIC AgICAgICAgICAgICAgICAgICAgICAgICAgICANCiAg ICAgICAgICAgICAgICAgICAgICAgICAgICAgICAgICAgICAgICAgICAgICAgICAgICAgICAgICAgICAg ICAgICAgICAgICAgICAgICAgICAgICAgICAgICAgICAgICAgICANCiAgICAgICAgICAgICAgICAgICAg ICAgICAgICAgICAgICAgICAgICAgICAgICAgICAgIC AgICAgICAgICAgICAgICAgICAgICAgICAgICAgICAgICAgICAgICAgICAgICAgICANCiAgICAgICAgIC AgICAgICAgICAgICAgICAgICAgICAgICAgICAgICAgICAgICAgICAgICAgICAgICAgICAgICAgICAgIC AgICAgICAgICAgICAgICAgICAgICAgICAgICAgICAN CiAgICAgICAgICAgICAgICAgICAgICAgICAgICAgICAgICAgICAgICAgICAgICAgICAgICAgICAgICAg ICAgICAgICAgICAgICAgICAgICAgICAgICAgICAgICAgICAgICAgICANCiAgICAgICAgICAgICAgICAg ICAgICAgICAgICAgICAgICAgICAgICAgICAgICAgIC AgICAgICAgICAgICAgICAgICAgICAgICAgICAgICAgICAgICAgICAgICAgICAgICAgICANCiAgICAgIC AgICAgICAgICAgICAgICAgICAgICAgICAgICAgICAgICAgICAgICAgICAgICAgICAgICAgICAgICAgIC AgICAgICAgICAgICAgICAgICAgICAgICAgICAgICAg ICANCjw/vSTrJ8gbfEOgpfO1K0uyJd0XEn4SJC6vv6TcCQYkIEmxabFpOywVCtJlEHUfYwcFRkq3NRrv AL6LxVMwW0CgF4JhPDzwWM7ROSXzZEFcxKJqUZQuOSXwKiZ1NUHnYDwkJU5UdVXhVXinVGIbAKLoHD8O KRNaT677bzYmKM3HYg5VYxFuDJ0qhc9TNlBqCHChTg nFKse8CAdqEC3MhIVzfTGeAcVsDWDORpVlN8uus2TtOjXvABDOTJdiHA2Mv5MfxGVrKWz+Dk6XFP2uu9 MgJOlfCzWxJE2hoy2FDKqSBmLzS3NdeOimZCWnk5zqNSEvRQ2mySHwACZ5EKRvCFqhteOgWKVhPpSdg1 XmhdgqZJSZTFQ5BBCmEA1nZYIgFSYlJqEdTQUQVB6U GJRxPTOmiJIoCFFjMKOTFQ2EISwoQBF1HQEfdcGacIPiBJliKY9JNQJnozYvZdLeCNBSEFa+Is4MHD3l e0GfPSmiCBMpRJ4svb2OBStBNaLwB3M9zECcC9F8FXhwOv6GGVIfQRYwNrXlXWTNZFkpWL2ZFL3bsdI6 CS7JdTIbNBEkJUXxiFKoTEw0L64bhUFrNIklGD0POG A+Natalie+Xs6ETQWvKEGyZGQgZiLrVBAYEaNtH8VnX3IUz8VeO2OqVT03rUzuzrZyGTyoKK9FFG8hQYBqJC ZKZS8AiBPdwG9awnWdDmTsNBIPQeTzF63loNQbLUInDTFbJTZcXv7NKKByV7JfotCkjSuryaRaKLWlAY ZOFS0IIJnbgeEkfPKsjQvmXF15iWwgRB0GFy4OHkBb ON4njc1NwYXqWl8SOSTcQF3ILEIzEYVlYHWdTNJ3EEHuOnHvTXmoAAYqOKKlBBW4JQCdTAPuCV4RJhTj EXDxQQb7XPSlTOAdNWGruv1DUDJqJYBuZBN3McSlGSBvAQBlAHphFHRxQYVgMDQ3DOIkIWWeAG6MYvJg NOQuLCQqTJPfOLNpVQGnbe4CJWHfILNgAoI5StFrMJ HnKSXoRUilACUtQGFsCcT7HWOaPPHjTE6ZGzUgATQxFFK1TIKdPUTeFYCrtb3JMPWaYVFuQlC0KmFrUT CnOWRgIUevYHKqMQJ3YlEqCVJtDQLgHV5BGqCqHPWjYII5DWPxODKiUDJqpa1PRJOjTLXvBCXdYVCnQZ XySJCaQCihBGDxTPT5Frp3BMGrFYNdDB8DIjYyIRPd FIA6SMGrQPExKKZfbf8XCNViRPLnFrnaPKHwKVSaHZUeJPguOVZdSRL1FDH9CMBvROJvSU8VXkSqBIXv ZXjiYHGsKCFoZWCajx3SLKAtLZOyZQIpIRBwCGWmSMJyPUabBTLaAJH5QSAyEQAsCBClYZ6UAbLzIADl JAe7DZIjZJBiVSLxfv8FOQKyBZJaCNQeHjOaTAOwDU CiNLaoNFZrZHVxBVL0JWAqJERzWG9TZrRiHTWzYiG8DXKlDAXfBNEtye4LRHOyZYIeXRR4LGOyVMBuII QeWIp2twYdhPGaAQl8PX3CA9OuxdAnHsRVJn5Hq263BYW3FNWgYo4WM5neYs9bFFEyJQLUTs4LBCr5Og AeUhUuJvxfYqGoFqRuTyB8OIN2HWItRDP9AGVaNwZ+ GTnfTYLvCzToD1QbUGYeZcVfTMUbCDz3YAH4KlH8HxDmHf3vJVELCq2+DQpzdGFydHhyZWYNCjIwOTEz OGwjKMFDOi0X ID Date Data Source PAP REQUEST FOR SERVICE 09/06/2020 12:00:00 AM EST eCW1 ([facility]) Name Value Range Interpretation Code Description Data Tami rce(s) Supporting Document(s) PAP REQUEST FOR SERVICE eCW1 ( [facility]) ID Date Data Source [id number] 08/18/2020 11:48:00 AM EST MEDENT ([facility]) Name Value Range Interpretation Code Description Data Tami rce(s) Supporting Document(s) Respiratory Panel Laboratory test result [facility]) This respiratory PCR panel detects Influ johanna A H1, H3 and 2009 H1 viruses, Influenza B virus, Resp iratory Syncytial Virus, Human metapneumovirus, Parainfluenza virus 1, 2, 3 and 4, Adenovirus, Rhinovirus/Enterovirus, Coronavirus HKU1, NL63, OC43, 229E and SARS-CoV-2 (COVID 19), Bordetella pertussis, Bordetella parapertussis, Mycoplasma pneumoniae and Chlamydia pneumoniae. POSITIVE by MULTIPLEXED NUCLEIC ACID PCR SARS-CoV-2 (COVID 19) POSITIVE - SARS-CoV-2 (COVID19) ORGANISM 1: SARS-CoV-2 (COVID 19) ID Date Data Source [id number] 08/18/2020 11:48:00 AM EST [facility] Name Value Range Interpretation Code Description Data Tami rce(s) Supporting Document(s) Respiratory pathogens identified [Type] in Nasopharynx by Probe and target amplification method [facility] This lab was ordered by [facility] a nd reported by [facility]. ID Date Data Source [id number] 06/23/2020 03:22:14 PM EST [facility] Name Value Range Interpretation Code Description Data Tami rce(s) Supporting Document(s) Progress Note [facility] RJRDSt6zFeTTCpOs96/CGGuzJRHkj4PwHRxbWWc6DSgcXYTiM3MjYKY3zV6xDHP7HErLSkPwNdJpDTX2 [facility] [file] bQF2Hr0RRPKfjnh9ueNqrNMo1t+fA9Pt8oe7zs5QQEs1ekqYrnzhCcFnc6ZuyL60DaBt6km4/[employer]+ef5E [file] JxVCDnJQH8UcT1Q4LwX5MfKJUnYecbS2G3HY8lHG ANCj4+MOjhkENejOvhDQSMJvAyBDK8ECzhVQALZs1K ID Date Data Source [id number] 06/23/2020 12:04:00 PM EST [facility] ([facility]) Name Value Range Interpretation Code Description Data Tami rce(s) Supporting Document(s) Gliadin peptide IgA Ab [Units/volume] in Serum Laboratory test result [facility] ([facility]) Negative Tissue transglutaminase IgA Ab [Units/volume] in Serum Laborator y test result [facility] ([facility]) Negative Gliadin peptide IgG Ab [Units/volume] in Serum Laboratory test result [facility] ([facility]) Negative IgA [Mass/volume] in Serum or Plasma 166 mg/dL 70-400 [facility]) ID Date Data Source [id number] 06/23/2020 12:04:00 PM EST [facility] ([facility]) Name Value Range Interpretation Code Description Data Tami rce(s) Supporting Document(s) Calcidiol [Mass/volume] in Serum or Plasma 42 ng/mL [facility] ([facility]) Thyrotropin [Units/volume] in Serum or Plasma 1.320 u[IU]/mL 0.270-4. 200 [facility] ([facility]) ID Date Data Source [id number] 06/23/2020 12:04:00 PM EST [facility] ([facility]) Name Value Range Interpretation Code Description Data Tami rce(s) Supporting Document(s) Cholesterol in HDL [Mass/volume] in Serum or Plasma 32 mg/dL Below low normal [facility] ([facility]) Triglyceride [Mass/volume] in Serum or Plasma 133 mg/dL [facility] ([facility]) Cholesterol [Mass/volume] in Serum or Plasma 186 mg/dL [facility] ([facility]) Cholesterol non HDL [Mass/volume] in Serum or Plasma 154 mg/dL Above high normal [facility] ([facility]) Cholesterol in LDL [Mass/volume] in Serum or Plasma by calculati on 127 mg/dL Above high normal [facility] ([facility]) Cholesterol in VLDL [Mass/volume] in Serum or Plasma by calc ulation 27 mg/dL 16-42 [facility] ([facility]) ID Date Data Source [id number] 06/23/2020 02:59:08 PM [facility] Value Range Interpretation Code Description Data Tami rce(s) Supporting Document(s) Calcidiol [Mass/volume] in Serum or Plasma 42 ng/mL >30 [facility] ID Date Data Source [id number] 06/24/2020 09:46:39 AM [facility] Value Range Interpretation Code Description Data Tami rce(s) Supporting Document(s) Gliadin peptide IgA Ab [Units/volume] in Serum <20.0 [facility] Negative Gliadin peptide IgG Ab [Units/volume] in Serum <20.0 [facility] Negative Tissue transglutaminase IgA Ab [Units/volume] in Serum <20 .0 [facility] Negative IgA [Mass/volume] in Serum or Plasma 166 mg/dL 70-400 [facility] ID Date Data Source [id number] 06/23/2020 02:49:17 PM [facility] Value Range Interpretation Code Description Data Tami rce(s) Supporting Document(s) Cholesterol [Mass/volume] in Serum or Plasma 186 mg/dL <200 [facility] Triglyceride [Mass/volume] in Serum or Plasma 133 mg/dL <150 [facility] Cholesterol in HDL [Mass/volume] in Serum or Plasma 32 mg/dL >50 L [facility] Cholesterol in LDL [Mass/volume] in Serum or Plasma by calcu lation 127 mg/dL <100 H [facility] Cholesterol in VLDL [Mass/volume] in Serum or Plasma by calc ulation 27 mg/dl 16-42 [facility] Cholesterol non HDL [Mass/volume] in Serum or Plasma 154 mg/dL <130 H [facility] ID Date Data Source [id number] 06/23/2020 02:49:17 PM [facility] Name Value Range Interpretation Code Description Data Tami rce(s) Supporting Document(s) Thyrotropin [Units/volume] in Serum or Plasma 1.320 u[IU]/mL 0.270-4. 200 [facility] ID Date Data Source [id number] 06/23/2020 10:51:00 AM EST [facility] ([facility]) Name Value Range Interpretation Code Description Data Tami rce(s) Supporting Document(s) Glucose [Mass/volume] in Serum or Plasma 175 mg/dL 70-140 Above high normal [facility] ([facility]) ID Date Data Source [id number] 06/23/2020 01:09:22 PM [facility] Name Value Range Interpretation Code Description Data Tami rce(s) Supporting Document(s) Glucose [Mass/volume] in Capillary blood by Glucometer 175 mg/dL 70- 140 H [facility] ID Date Data Source [id number] 06/06/2020 12:29:00 AM EDT [facility] ([facility]) Name Value Range Interpretation Code Description Data Tami rce(s) Supporting Document(s) Choriogonadotropin.beta subunit [Moles/volume] in Seru m or Plasma Laboratory test result Normal (applies to non-numeric results) [facility] ([facility]) <content>QUANTITATIVE RESULT QU ALITATIVE INTERPRETATION</content>
<content> </content>
<content><5.0 IU/L NEGATIVE</content>
<content>5.0 - 25.0 IU/L INDETERMINATE</content>
<content>>25.0 IU/L POSITIVE</content>
<content></content> ID Date Data Source [id number] 06/06/2020 12:26:00 AM EDT [facility] ([facility]) Name Value Range Interpretation Code Description Data Tami rce(s) Supporting Document(s) Laboratory test finding (navigational concept) 38.0 % 3 8.0-51.0 Normal (applies to non-numeric results) [facility] ([facility]) Laboratory test finding (navigational concept) 87 mg/dL 7 0-105 Normal (applies to non-numeric results) [facility] ([facility]) Laboratory test finding (navigational concept) 142 meq/L 1 36-145 Normal (applies to non-numeric results) [facility] ([facility]) Laboratory test finding (navigational concept) 4.1 meq/L 3 .5-5.1 Normal (applies to non-numeric results) [facility] ([facility]) Laboratory test finding (navigational concept) 5.0 mg/dL 4 .5-5.3 Normal (applies to non-numeric results) [facility] ([facility]) Laboratory test finding (navigational concept) 21 mg/dL 8 -26 Normal (applies to non-numeric results) [facility] ([facility]) Laboratory test finding (navigational concept) 26.0 MM/L 2 3.0-27.0 Normal (applies to non-numeric results) [facility] ([facility]) Laboratory test finding (navigational concept) 104 meq/L 9 8-109 Normal (applies to non-numeric results) [facility] ([facility]) Laboratory test finding (navigational concept) 1.1 mg/dL 0 .6-1.3 Normal (applies to non-numeric results) [facility] ([facility]) Procedure Social History Code Duration Value Status Description Data Source(s ) Smoking 01/26/2021 12:00:00 AM EDT Never Smoker completed Never S moker eCW1 ([facility]) Smoking 01/12/2021 12:00:00 AM EDT Never Smoker completed Never S moker eCW1 ([facility]) Smoking 01/12/2021 12:00:00 AM EDT Never Smoker completed Never S moker eCW1 ([facility]) Smoking 12/29/2020 12:00:00 AM EDT Never Smoker completed Never S moker eCW1 ([facility]) Smoking 12/15/2020 12:00:00 AM EDT Never Smoker completed Never S moker eCW1 ([facility]) Smoking 12/15/2020 12:00:00 AM EDT Never Smoker completed Never S moker eCW1 ([facility]) Smoking 11/30/2020 12:00:00 AM EDT Never Smoker completed Never S moker eCW1 ([facility]) Smoking 11/30/2020 12:00:00 AM EDT Never Smoker completed Never S moker eCW1 ([facility]) Smoking 11/30/2020 12:00:00 AM EDT Never Smoker completed Never S moker eCW1 ([facility]) Smoking 11/07/2020 12:00:00 AM EDT Patient has never smoked co mpleted Patient has never smoked [facility] ([facility]) Alcohol intake 09/27/2020 12:00:00 AM EST Current non-d geoffrey of alcohol (finding) completed Current non-drinker of alcohol (finding) [facility] Tobacco use and exposure 09/27/2020 12:00:00 AM EST Never used co mpleted Never used [facility] Smoking 09/27/2020 12:00:00 AM EST Never smoker completed Never s [facility] Smoking 09/06/2020 12:00:00 AM EST Never Smoker completed Never S moker eCW1 ([facility]) Alcohol intake 06/23/2020 12:00:00 AM EST Current non-d geoffrey of alcohol (finding) completed Current non-drinker of alcohol (finding) [facility] Vital Signs ID Date Data Source UNK Name Value Range Interpretation Code Description Data Source(s) Systolic blood pressure 118 mm[Hg] 118 mm[Hg] M [facility] ([facility]) Diastolic blood pressure 70 mm[Hg] 70 mm[Hg] [facility] ([facility]) Body height 61.8 [in_i] 61.8 [in_i] [facility] ([facility]) 5'1.80" Body weight 264.25 [lb_av] 264.25 [lb_av] [facility] ([facility]) Body mass index (BMI) [Ratio] 48.6 kg/m2 48.6 k g/m2 [facility] ([facility]) Heart rate 99 /min 99 /min [facility] ([facility]) Respiratory rate 18 /min 18 /min [facility] ( [facility]) Body temperature 97.7 [degF] 97.7 [degF] [facility] ([facility]) Oxygen saturation in Arterial blood by Pulse oximetry 99 % 99 % [facility] ([facility]) [place] body weight 105 [lb_av] 105 [lb_av] [facility] T ([facility]) Oxygen saturation in Arterial blood by Pulse oximetry 98 % 98 % [facility] ([facility]) Systolic blood pressure 120 mm[Hg] 120 mm[Hg] M [facility] ([facility]) Diastolic blood pressure 86 mm[Hg] 86 mm[Hg] [facility] ([facility]) Body height 61.8 [in_i] 61.8 [in_i] [facility] ([facility]) 5'1.80" Body weight 246.12 [lb_av] 246.12 [lb_av] [facility] T ([facility]) Body mass index (BMI) [Ratio] 45.3 kg/m2 45.3 k g/m2 [facility] ([facility]) Heart rate 100 /min 100 /min [facility] ([facility]) Respiratory rate 12 /min 12 /min [facility] ( [facility]) Body temperature 97.3 [degF] 97.3 [degF] [facility] ([facility]) [place] body weight 105 [lb_av] 105 [lb_av] [facility] ([facility]) Body weight 236 [lb_av] 236 [lb_av] eCW1 ([facility]) Body height 62 [in_i] 62 [in_i] eCW1 ([facility]) Body mass index (BMI) [Ratio] 43.16 kg/m2 43.16 kg/m2 eCW1 ([facility]) Systolic blood pressure 136 mm[Hg] 136 mm[Hg] e CW1 ([facility]) Diastolic blood pressure 78 mm[Hg] 78 mm[Hg] eCW1 ([facility]) Systolic blood pressure 118 mm[Hg] 118 mm[Hg] e CW1 ([facility]) Body weight 232 [lb_av] 232 [lb_av] eCW1 ([facility]) Body height 62 [in_i] 62 [in_i] eCW1 ([facility]) Body mass index (BMI) [Ratio] 42.433 kg/m2 42.4 33 kg/m2 eCW1 ([facility]) Diastolic blood pressure 76 mm[Hg] 76 mm[Hg] eCW1 ([facility]) Body weight 235.0 [lb_av] 235.0 [lb_av] eCW1 ([facility]) Body height 62 [in_i] 62 [in_i] eCW1 ([facility]) Body mass index (BMI) [Ratio] 42.982 kg/m2 42.9 82 kg/m2 eCW1 ([facility]) Systolic blood pressure 112 mm[Hg] 112 mm[Hg] e CW1 ([facility]) Diastolic blood pressure 72 mm[Hg] 72 mm[Hg] eCW1 ([facility]) Body weight 244 [lb_av] 244 [lb_av] eCW1 ([facility]) Body weight 110.68 kg 110.68 kg eCW1 ([facility]) Body height 62 [in_i] 62 [in_i] eCW1 ([facility]) Body mass index (BMI) [Ratio] 44.62 kg/m2 44.62 kg/m2 eCW1 ([facility]) Systolic blood pressure 126 mm[Hg] 126 mm[Hg] e CW1 ([facility]) Diastolic blood pressure 72 mm[Hg] 72 mm[Hg] eCW1 ([facility]) Body weight 248.6 [lb_av] 248.6 [lb_av] eCW1 ([facility]) Body height 62 [in_i] 62 [in_i] eCW1 ([facility]) Body mass index (BMI) [Ratio] 45.47 kg/m2 45.47 kg/m2 eCW1 ([facility]) Systolic blood pressure 126 mm[Hg] 126 mm[Hg] e CW1 ([facility]) Diastolic blood pressure 80 mm[Hg] 80 mm[Hg] eCW1 ([facility]) Body weight 112.76 kg 112.76 kg eCW1 ([facility]) Heart rate 92 /min 92 /min MEDENT ([facility]) Respiratory rate 18 /min 18 /min MEDENT ( [facility]) Body temperature 98.9 [degF] 98.9 [degF] MEDENT ([facility]) Oxygen saturation in Arterial blood by Pulse oximetry 97 % 97 % MEDENT ([facility]) [place] body weight 105 [lb_av] 105 [lb_av] MEDEN T ([facility]) Systolic blood pressure 122 mm[Hg] 122 mm[Hg] M EDENT ([facility]) Diastolic blood pressure 72 mm[Hg] 72 mm[Hg] MEDENT ([facility]) Body height 61.8 [in_i] 61.8 [in_i] MEDENT ([facility]) 5'80" Body weight 251.00 [lb_av] 251.00 [lb_av] MEDEN T ([facility]) Body mass index (BMI) [Ratio] 46.2 kg/m2 46.2 k g/m2 MEDENT ([facility]) Diastolic blood pressure 80 mm[Hg] 80 mm[Hg] MEDENT ([facility]) Oxygen saturation in Arterial blood by Pulse oximetry 98 % 98 % MEDENT ([facility]) [place] body weight 105 [lb_av] 105 [lb_av] MEDEN T ([facility]) Body temperature 98.0 [degF] 98.0 [degF] MEDENT ([facility]) Body height 61.8 [in_i] 61.8 [in_i] MEDENT ([facility]) 5'80" Body weight 254.00 [lb_av] 254.00 [lb_av] MEDEN T ([facility]) Body mass index (BMI) [Ratio] 46.8 kg/m2 46.8 k g/m2 MEDENT ([facility]) Heart rate 120 /min 120 /min MEDENT ([facility]) Respiratory rate 16 /min 16 /min [facility] [facility]) Systolic blood pressure 148 mm[Hg] 148 mm[Hg] M EDENT ([facility]) Body weight 250 [lb_av] 250 [lb_av] eCW1 (Formerly [facility]) Diastolic blood pressure 84 mm[Hg] 84 mm[Hg] eCW1 (Formerly [facility]) Body height 62 [in_i] 62 [in_i] eCW1 ([facility]) Body mass index (BMI) [Ratio] 45.72 kg/m2 45.72 kg/m2 eCW1 (Formerly [facility]) Systolic blood pressure 130 mm[Hg] 130 mm[Hg] e CW1 (Formerly [facility]) [place] body weight 105 [lb_av] 105 [lb_av] MEDEN T ([facility]) Diastolic blood pressure 80 mm[Hg] 80 mm[Hg] MEDENT ([facility]) Body height 61.8 [in_i] 61.8 [in_i] MEDENT ([facility]) 5'1.80" Body weight 251.00 [lb_av] 251.00 [lb_av] MEDEN T ([facility]) Systolic blood pressure 136 mm[Hg] 136 mm[facility]Hg[facility] Body mass index (BMI) [Ratio] 46.2 kg/m2 46.2 k g/m2 MEDENT ([facility]) Heart rate 93 /min 93 /min MEDENT ([facility]) Respiratory rate 18 /min 18 /min MEDENT ( [facility]) Body temperature 98.0 [degF] 98.0 [degF] MEDENT ([facility]) Oxygen saturation in Arterial blood by Pulse oximetry 99 % 99 % MEDENT ([facility]) Body height 61.8 [in_i] 61.8 [in_i] [facility] 5'1.80" Body mass index (BMI) [Ratio] 46.3 kg/m2 46.3 k g/m2 [facility] ([facility]) Heart rate 93 /min 93 /min MEDENT ([facility]) Respiratory rate 18 /min 18 /min MEDENT ( [facility]) Body temperature 98.3 [degF] 98.3 [degF] MEDENT ([facility]) Oxygen saturation in Arterial blood by Pulse oximetry 96 % 96 % [facility] ([facility]) Diastolic blood pressure 74 mm[Hg] 74 mm[Hg] [facility] Body weight 251.38 [lb_av] 251.38 [lb_av] [facility] [place] body weight 105 [lb_av] 105 [lb_av] MEDEN T ([facility]) Systolic blood pressure 128 mm[Hg] 128 mm[Hg] M COUNTS INCLUDE 234 BEDS AT [facility] ([facility]) Oxygen saturation in Arterial blood by Pulse oximetry 98 % 98 % MEDENT ([facility], [facility]) Body temperature 98.1 [degF] 98.1 [degF] MEDENT ([facility] [place], [facility]) Systolic blood pressure 121 mm[Hg] 121 mm[Hg] [facility]) Diastolic blood pressure 78 mm[Hg] 78 mm[Hg] MEDENT ([facility] [place], [facility]) Heart rate 102 /min 102 /min MEDENT ([facility], [facility]) Respiratory rate 18 /min 18 /min MEDENT ( [facility], [facility]) Body weight 245.00 [lb_av] 245.00 [lb_av] MEDEN T ([facility], [facility]) Body temperature 98.2 [degF] 98.2 [degF] [facility] Systolic blood pressure 124 mm[Hg] 124 mm[Hg] M EDENT ([facility]) Diastolic blood pressure 80 mm[Hg] 80 mm[Hg] MEDENT ([facility]) Body height 61.8 [in_i] 61.8 [in_i] MEDENT ([facility]) 5'1.80" Body weight 254.00 [lb_av] 254.00 [lb_av] MEDEN T ([facility]) Body mass index (BMI) [Ratio] 46.8 kg/m2 46.8 k g/m2 MED[facility] ([facility]) Oxygen saturation in Arterial blood by Pulse oximetry 99 % 99 % [facility] ([facility]) Heart rate 104 /min 104 /min [facility] [place] body weight 105 [lb_av] 105 [lb_av] MEDEN T ([facility]) Respiratory rate 18 /min 18 /min MEDENT ( [facility]) Systolic blood pressure 132 mm[Hg] 132 mm[Hg] M EDENT ([facility]) Diastolic blood pressure 82 mm[Hg] 82 mm[Hg] MEDENT ([facility]) Body height 61.8 [in_i] 61.8 [in_i] MEDENT ([facility]) 5'1.80" Body weight 249.38 [lb_av] 249.38 [lb_av] MEDEN T ([facility]) Body mass index (BMI) [Ratio] 45.9 kg/m2 45.9 k g/m2 MED[facility] ([facility]) Heart rate 101 /min 101 /min MED[facility] ([facility]) Respiratory rate 20 /min 20 /min [facility] ( [facility]) Body temperature 97.6 [degF] 97.6 [degF] [facility] ([facility]) Oxygen saturation in Arterial blood by Pulse oximetry 98 % 98 % [facility] [place] body weight 105 [lb_av] 105 [lb_av] MEDEN T ([facility]) ID Date Data Source [id number] 06/24/2020 09:46:47 AM [facility] Name Value Range Interpretation Code Description Data Source(s) WEIGHT RECORDED 248.02 lb 248.02 lb [facility] Body height Measured 61.81 in 61.81 in [facility] Patient Treatment Plan of Care Planned Activity Planned Date Details Description Data Source (s) Promethazine Hydrochloride 25 MG Rectal Suppository 12/29/19 12:00:00 AM EDT [facility] ([facility]) Acetone (Urine) Test In Vitro Strip 08/23/2020 12:00:00 AM [facility] Metformin hydrochloride 500 MG Oral Tablet 06/23/2020 12:00:00 AM E [facility] FreeStyle Lite Test In Vitro Strip 03/14/2020 12:00:00 AM [facility] Glucagon 1 MG Injection 03/14/2020 12:00:00 AM [facility]
--- OUTSIDE RECORDS SUMMARY | 2021-06-25 15:38 | CCD ---
Author Author [facility] Organization [facility] Address Unknown Phone Unavailable Care Team Providers Care Forklift Driver Name Role Phone TEOPIA Unavailable Unavailable Uzair [...] Unavailable CARISSIMI, A VIANEY CNM Unavailable Unavailable Bruce, Josiane PA Unavailable Unavailable Tricia, Josiane PA Unavailable Unavailable Tricia, Josiane PA Unavailable Unavailable Tricia, Josiane PA Unavailable Unavailable Bruce, Josiane PA Unavailable Unavailable Tricia, Josiane PA Unavailable Unavailable Tricia, Josiane PA Unavailable Unavailable Bruce, Josiane PA Unavailable Unavailable Tricia, Josiane PA Unavailable Unavailable Bruce, Josiane PA Unavailable Unavailable Tricia, Josiane PA Unavailable Unavailable Tricia, Josiane PA Unavailable Unavailable Tricia, Josiane PA Unavailable Unavailable Bruce, Josiane PA Unavailable Unavailable Bruce, Josiane PA Unavailable Unavailable Bruce, Josiane PA Unavailable Unavailable Tricia, Josiane PA Unavailable Unavailable Tricia, Josiane PA Unavailable Unavailable Bruce, Josiane PA Unavailable Unavailable Bruce, Josiane PA Unavailable Unavailable Tricia, Josiane PA Unavailable Unavailable Tricia, Josiane PA Unavailable Unavailable Tricia, Josiane PA Unavailable Unavailable Bruce, Josiane PA Unavailable Unavailable Tricia, Josiane PA Unavailable Unavailable Bruce, Josiane PA Unavailable Unavailable Bruce, Josiane PA Unavailable Unavailable Bruce, Josiane PA Unavailable Unavailable Tricia, Josiane PA Unavailable Unavailable Tricia, Josiane PA Unavailable Unavailable Bruce, Josiane PA Unavailable Unavailable Bruce, Josiane PA Unavailable Unavailable Tricia, Josiane PA Unavailable Unavailable Tricia, Josiane PA Unavailable Unavailable Bruce, Josiane PA Unavailable Unavailable An, Autumn ACCELERATOR TECHNICIAN Unavailable Unavailable An, Autumn ACCELERATOR TECHNICIAN Unavailable Unavailable An, Autumn ACCELERATOR TECHNICIAN Unavailable Unavailable An, Autumn ACCELERATOR TECHNICIAN Unavailable Unavailable An, Autumn ACCELERATOR TECHNICIAN Unavailable Unavailable An, Autumn ACCELERATOR TECHNICIAN Unavailable Unavailable An, Autumn ACCELERATOR TECHNICIAN Unavailable Unavailable An, Autumn ACCELERATOR TECHNICIAN Unavailable Unavailable An, Autumn ACCELERATOR TECHNICIAN Unavailable Unavailable An, Autumn ACCELERATOR TECHNICIAN Unavailable Unavailable An, Autumn ACCELERATOR TECHNICIAN Unavailable Unavailable An, Autumn ACCELERATOR TECHNICIAN Unavailable Unavailable An, Autumn ACCELERATOR TECHNICIAN Unavailable Unavailable VYAS, Hugo DILLON Unavailable Unavailable [...] Unavailable Unavailable Uzair RIVERO MD Unavailable Unavailable Elizabeth, Maryse Unavailable Elizabeth, Maryse Unavailable RETA BAIRD Unavailable Unavailable Josef [...] A Edward PA Unavailable Unavailable O'baron, A Edwrad PA Unavailable Unavailable O'baron, A Edward PA Unavailable Unavailable O'baron, A Edward PA Unavailable Unavailable O'baron, A Edward PA Unavailable Unavailable O'baron, A Edward PA Unavailable Unavailable O'baron, A Edward PA Unavailable Unavailable O'baron, A Edward PA Unavailable Unavailable O'baron, A Ewdard PA Unavailable Unavailable O'baron, A Edward PA Unavailable Unavailable Terri GOODMAN JOSIANE ACCELERATOR TECHNICIAN Unavailable Unavailable Terri GOODMAN JOSIANE ACCELERATOR TECHNICIAN Unavailable Unavailable REX, C JOSIANE ACCELERATOR TECHNICIAN Unavailable Unavailable REX, C JOSIANE ACCELERATOR TECHNICIAN Unavailable Unavailable REX, C JOSIANE ACCELERATOR TECHNICIAN Unavailable Unavailable REX, C JOSIANE ACCELERATOR TECHNICIAN Unavailable Unavailable REX, C JOSIANE ACCELERATOR TECHNICIAN Unavailable Unavailable REX C JOSIANE ACCELERATOR TECHNICIAN Unavailable Unavailable REX, C JOSIANE ACCELERATOR TECHNICIAN Unavailable Unavailable REX, C JOSIANE ACCELERATOR TECHNICIAN Unavailable Unavailable REX, C JOSIANE ACCELERATOR TECHNICIAN Unavailable Unavailable REX, C JOSIANE ACCELERATOR TECHNICIAN Unavailable Unavailable REX, C JOSIANE ACCELERATOR TECHNICIAN Unavailable Unavailable REX, C JOSIANE ACCELERATOR TECHNICIAN Unavailable Unavailable REX, C JOSIANE ACCELERATOR TECHNICIAN Unavailable Unavailable REX, C JOSIANE ACCELERATOR TECHNICIAN Unavailable Unavailable REX, C JOSIANE ACCELERATOR TECHNICIAN Unavailable Unavailable REX, C JOSIANE ACCELERATOR TECHNICIAN Unavailable Unavailable REX, C JOSIANE ACCELERATOR TECHNICIAN Unavailable Unavailable REX, C JOSIANE ACCELERATOR TECHNICIAN Unavailable Unavailable REX, C JOSIANE ACCELERATOR TECHNICIAN Unavailable Unavailable REX, C JOSIANE ACCELERATOR TECHNICIAN Unavailable Unavailable REX, C JOSIANE ACCELERATOR TECHNICIAN Unavailable Unavailable REX, C JOSIANE ACCELERATOR TECHNICIAN Unavailable Unavailable REX, C JOSIANE ACCELERATOR TECHNICIAN Unavailable Unavailable REX, C JOSIANE ACCELERATOR TECHNICIAN Unavailable Unavailable MEDENT_[id number], [id number] Unavailable MEDENT_9359, [id number] Unavailable Kutahyalioglu, Maria De Jesus Unavailable Unavailable [...] is protected by Article 27-F of the [facility] Public Health law. If you continue you may have access to information: Regarding HIV / AIDS; Provided by facilities licensed or operated by the [facility] Office of Mental Health; or Provided by the [facility] Office for People With Developmental Disabilities. If such information is present, then the following [facility] mandated warning applies: This information has been [...] law may result in a fine or long term sentence or both. A general authorization for the release of medical or other information is NOT sufficient authorization for further disc losure. Allergies and Adverse Reactions Type Description Substance Reaction Status Data Source(s ) Propensity to adverse reactions NO KNOWN ALLERGIES NO KNOWN ALLERGIES [facility] Environmental Allergy ENVIRONMENTAL [facility] Family History Family Member Name Family Member Gender Family Member Status Date o f Status Description Data Source(s) Unknown Unknown Problem MEDENT ([facility]) Unknown Unknown Problem MEDENT ([facility]) Unknown Female Problem MEDENT ([facility]) Encounters Encounter Providers Location Date Indications Data Source(s ) Outpatient Attender: Josiane MEDEROSeferrer: EVELYN BONILLA DO 06/26/2021 12:00:00 AM [facility] Outpatient Attender: EVELYN FRASER DO [facility] 06/15/2021 10:00:00 AM EDT MEDENT ([facility]) Outpatient Attender: VIANEY DOVE 05/23/2021 12:0 0:00 AM [facility] Outpatient 05/23/2021 12:00:00 AM [facility] Outpatient 05/23/2021 12:00:00 AM [facility] Outpatient 05/05/2021 12:00:00 AM [facility] Outpatient 05/05/2021 12:00:00 AM [facility] Outpatient 05/05/2021 12:00:00 AM [facility] Outpatient Attender: VIANEY AYSEMEHRAN CNM 05/02/2021 12:0 0:00 AM [facility] Outpatient 05/02/2021 12:00:00 AM [facility] Outpatient 05/02/2021 12:00:00 AM [facility] Outpatient 04/28/2021 12:00:00 AM [facility] Outpatient 04/28/2021 12:00:00 AM [facility] Outpatient 04/28/2021 12:00:00 AM [facility] Outpatient 04/28/2021 12:00:00 AM [facility] Outpatient 04/26/2021 12:00:00 AM [facility] Outpatient Attender: JOSIANE GOODMAN NP 04/26/2021 12:00:0 0 AM [facility] Outpatient 04/26/2021 12:00:00 AM [facility] Outpatient 04/18/2021 12:00:00 AM [facility] Outpatient Attender: VIANEY METCALF [facility] 04/18/2021 12:0 0:00 AM [facility] Outpatient 04/18/2021 12:00:00 AM [facility] Outpatient Attender: DILLON VYAS -XXUCPERI 04/17/2021 11:19:53 AM [facility] Outpatient Attender: INGA OLVERA-BCReferrer: Camron ESPINOZA -XXUCPERI 04/17/2021 12:00:00 AM [facility] - 04/17/2021 10:31:58 AM [facility] Outpatient Attender: INGA OLVERA-BC 04/13/2021 12:00:0 0 AM [facility] Outpatient Attender: JOSIANE GOODMAN NP 04/11/2021 [facility] 12:00:00 AM [facility] Outpatient 04/11/2021 12:00:00 AM [facility] Outpatient Attender: VIANEY METCALF [facility] 04/07/2021 12:0 0:00 AM [facility] Outpatient Attender: JOSIANE GOODMAN NP 04/05/2021 12:00:0 0 AM [facility] Outpatient Attender: JUSTIN BUTLER RPA 03/31 08:24:39 PM EDT - 03/31/2021 08:49:59 PM EDT [facility] ([facility] ) Outpatient Attender: VIANEY METCALF CN 03/28/2021 12:0 0:00 AM [facility] Outpatient 03/28/2021 12:00:00 AM [facility] Inpatient Attender: ELOISE JAMESON MD 03/24/2021 11:04:19 PM EDT [facility] Inpatient Attender: CHRIS RIVERO MDAdmitter: CHRIS GRANADOS MD 03/24/2021 06:54:00 PM EDT - 03/27/2021 12:56:00 PM EDT [facility] Patient discharged. Outpatient Attender: INGA OLVERA-BCReferrer: Camron ESPINOZA [id number] 03/23/2021 12:00:00 AM EDT - 03/23/2021 01:23:47 PM ED T Supervision of high risk , unspecified, unspecified trimester [facility] Supervision of high risk , unsp ecified, unspecified trimester Outpatient Attender: PIA BRUCE 03/23/2021 12:00:00 AM [facility] Outpatient Attender: Maryse Tang rosa: [id number] [id number]: CHRIS RIVERO MD 03/23/2021 12:00:00 AM EDT [facility] Outpatient Attender: JOSIANE GOODMAN NPReferrer: Josiane ESPINOZA 03/14/2021 12:00:00 AM [facility] Outpatient Attender: Maryse Tangender: [id number] [facility]_9359 03/14/2021 12:00:00 AM [facility] Outpatient 03/14/2021 12:00:00 AM [facility] Outpatient Attender: JOSIANE GOODMAN ACCELERATOR TECHNICIAN Admitter: JOSIANE GOODMAN NPReferrer: Josiane ESPINOZA [id number] 03/03/2021 12:00:00 AM EDT - 03/03/2021 03:29:22 PM [facility] Outpatient Attender: RETA OLI 03/03/2021 12:00:00 AM [facility] Outpatient Attender: VIANEY METCALF CNMReferrer: Darron ESPINOZA 02/28/2021 12:00:00 AM [facility] Outpatient 02/28/2021 12:00:00 AM [facility] Outpatient Attender: VIANEY METCALF CNMReferrer: Josiane ESPINOZA [id number] 02/14/2021 12:00:00 AM EDT - 02/14/2021 01:48:50 PM [id number] [id number] Maryse LauReferrer: CHRIS RIVERO MD [id number] 02/14/2021 12:00:00 AM EDT [facility] Unknown [address] [facility] [address] 02/14/2021 12:00:00 AM EDT eC ([facility]) Review<td><content ID="_[id number]">Review</content>
</td><td><conten t styleCode="xSecondary">08-Feb-2021 11:46 </content>
<content styleCode="xSecondary">[facility]</content>
</td><td></td> [facility] 02/08/2021 11:46:33 AM EDT - 02/08/2021 11:53:23 AM EDT [facility] ([facility]) Outpatient Attender: EVELYN FRASER [facility] 02/06/2021 09:20:00 AM EDT MEDENT ([facility]) Outpatient Attender: CHRIS WHYTEeferrer: Kaleb ESPINOZA [id number] 01/31/2021 12:00:00 AM EDT - 01/31/2021 04:31:44 PM [facility] Outpatient Attender: PIA BRUCEReferrer: Josiane Gerardo A 01/31/2021 12:00:00 AM [facility] ( COBMD) WCenter Complicated OB for MD Only [address] [place] [address] 01/12/2021 12:00:00 AM EDT eCW1 ([facility]) ( COBMD) WCenter Complicated OB for MD Only [address] [place] [address] 12/29/2020 12:00:00 AM EDT eCW1 ([facility]) Unknown [address] [facility] [address] 12/28/2020 12:00:00 AM EDT eCW1 ([facility]) Outpatient Attender: Maria De Jesus Keith 12/26/2020 12:00: 00 AM [facility] ( COB) WCenter Complicated OB [address] [place] [address] 12/22/2020 12:00:00 AM EDT eCW1 ([facility]) ( COBMD) WCenter Complicated OB for MD Only [address] [place] [address] 12/16/2020 12:00:00 AM EDT eCW1 ([facility]) Unknown [address] [facility] [address] 12/07/2020 12:00:00 AM EDT eCW1 ([facility]) Unknown [address] [facility] [address] 11/30/2020 12:00:00 AM EDT eCW1 ([facility]) (WC ESTOB) WCenter Est OB [address] [place] [address] 11/30/2020 12:00:00 AM EDT eCW1 ([facility]) Outpatient Attender: EVELYN FRASER [facility] 11/07/2020 10:40:00 AM EDT MEDENT ([facility]) Outpatient Attender: Josiane ESPINOZA [id number] 12:00:00 AM EST Type 1 diabetes mellitus with hyperglycemia [facility] Type 1 diabetes mellitus with hyperglyce candice Outpatient Attender: EVELYN FRASER DO [facility] 09/12/2020 02:40:00 PM EST MEDENT ([facility]) Outpatient [address] [facility] [address] 09/06/2020 12:00:00 AM EST eCW1 ([facility]) Outpatient Attender: EVELYN FRASER [facility] 08/18/2020 10:30:00 AM EST MEDENT ([facility]) Outpatient Attender: EVELYN FRASER [facility] 08/01/2020 09:20:00 AM EST MEDENT ([facility]) Outpatient Attender: Autumn lyons 07/27/2020 04:20:00 PM EST MEDENT ([facility] Outpatient Attender: Edward ESPINOZA [facility] 07/25/2020 03:10:00 PM EST MEDENT ([facility]) Outpatient Attender: EVELYN FRASER DO [facility] 07/01/2020 09:20:00 AM EST MEDENT ([facility]) Outpatient Attender: Josiane ESPINOZA [id number] 12:00:00 AM EST - 06/24/2020 12:00:00 AM EST rat exterminator (current) use of insulin [facility] alf (current) use of insulin Immunizations Vaccine Date Status Description Data Source(s) COVID-19 VACCINE Moderna 10/27/2020 12:00:00 AM EST completed [facility] Vaccine Series Complete: YESThis Data wa s Submitted to [facility] Via [employer]. COVID-19 VACCINE Moderna 09/29/2020 12:00:00 AM EST completed [facility] Vaccine Series Complete: NOThis Data was Submitted to [facility] Via [employer]. Medications Medication Brand Name Start Date Product Form Dose Route Admi nistrative Instructions Pharmacy Instructions Status Indications Reaction Description Data Source(s) Fluoxetine 40 MG Oral Capsule [Prozac] Prozac 06/15/2021 12:00:00 AM EDT ORAL active MEDENT ([facility]) Promethazine Hydrochloride 25 MG Rectal Suppository Pr omethazine HCl 25 MG Promethazine HCl 25 MG 12/28/2020 12:00:00 AM EDT 1.0 {supposito ry_as_needed} active Promethazine HCl 25 MG eCW1 ([facility]) Promethazine Hydrochloride 25 MG Rectal Suppository Pr omethazine HCl 25 MG Promethazine HCl 25 MG 12/28/2020 12:00:00 AM EDT 1.0 {supposito ry_as_needed} active Promethazine HCl 25 MG eCW1 ([facility]) Promethazine Hydrochloride 25 MG Rectal Suppository Pr omethazine HCl 25 MG Promethazine HCl 25 MG 12/28/2020 12:00:00 AM EDT 1.0 {supposito ry_as_needed} active Promethazine HCl 25 MG eCW1 ([facility]) Promethazine Hydrochloride 25 MG Rectal Suppository Pr omethazine HCl 25 MG Promethazine HCl 25 MG 12/28/2020 12:00:00 AM EDT 1.0 {supposito ry_as_needed} active Promethazine HCl 25 MG eCW1 ([facility]) Promethazine Hydrochloride 25 MG Rectal Suppository Pr omethazine HCl 25 MG Promethazine HCl 25 MG 12/28/2020 12:00:00 AM EDT 1.0 {supposito ry_as_needed} active Promethazine HCl 25 MG eCW1 ([facility]) Acetone (Urine) Test In Vitro Strip [id number] 08/23/2020 12:00:00 AM EST active Ketostix, use as dir ected up to 10 times daily for illness or elevated blood sugar over 250 twice in a row, dx E10.65 [facility] 120 ACTUAT Fluticasone propionate 0.11 MG/ACTUAT Meter ed Dose Inhaler [Flovent] Flovent HFA 08/18/2020 12:00:00 AM EST ORAL completed MEDENT ([facility]) Ondansetron 4 MG Oral Tablet Ondansetron HCL 07/25/2020 12:00:[address] ORAL active MEDENT ([facility]) Meclizine Hydrochloride 12.5 MG Oral Tablet Meclizine HCL 07/25/2020 12:00:00 AM EST ORAL active MEDENT ([facility]) Metformin hydrochloride 500 MG Oral Tablet metFORMIN H Cl 500 MG Oral Tablet metFORMIN HCl 500 MG Oral Tablet 06/23/2020 12:00:00 AM EST 500 mg Oral active Take 1 tablet by mouth Two times daily with meals [facility] Pseudoephedrine Hydrochloride 30 MG Oral Tablet Pseudoephedr ine HCL 04/12/2020 12:00:00 AM EDT completed MEDENT ([facility]) Flonase Allergy Relief Flonase Allergy Relief 04/11/2020 12:00:00 AM E DT completed MEDENT ([facility]) Glucagon 1 MG Injection Glucagon (rDNA) 1 MG Injection Kit (Glucagon Emergency) Glucagon (rDNA) 1 MG Injection Kit (Glucagon Emergency) 03/14/2020 12:00:00 AM EDT aborted Type 1 diabetes mellitus with hyperglycemia For extreme low blood sugar dx E10.65 [facility] Type 1 diabetes mellitus with hyperglyce candice FreeStyle Lite Test In Vitro Strip [id number] 03/14/2020 12:00:00 AM EDT active Type 1 diabetes mellitus with hyperglycem ia Use as instructed to check blood sugar 4 times daily E10.65 [facility] Type 1 diabetes mellitus with hyperglyce candice Insurance Providers Payer name Policy type / Coverage type Policy ID Covered libertarian ID Covered libertarian's relationship to sotomayor Policy Sotomayor Plan Information U [id number] Spouse [id number] U [id number] Self [id number] Self [id number] Spouse [id number] SELF PAY ONLY [id number] SP [id number] [employer] [place] O [id number] S [id number] [employer] [place] SASHA O [id number] S [id number] AM-TRUST [facility] [id number] SP [id number] [facility] [id number] SP [id number] [facility] Commercial [id number] Family Dependent [id number] [facility] Commercial [id number] Family Dependent [id number] [facility] Commercial [id number] Family Dependent [id number] [facility] Commercial [id number] Family Dependent [id number] [facility] (2017) Health Maintenance Organization (HMO) [id number] Family Dependent [id number] [employer] (2017) Health Maintenance Organization (HMO) [id number] Family Dependent [id number] [facility] Commercial [id number] Family Dependent [id number] [facility] Commercial [id number] Family Dependent [id number] [facility] [id number] Family Dependent [id number] [facility] [id number] Family Dependent [id number] [facility] [id number] Family Dependent [id number] [facility] [id number] Family Dependent [id number] [facility] [id number] Family Dependent [id number] [facility] [id number] Family Dependent [id number] [facility] [id number] Family Dependent [id number] [facility] [id number] [facility] Enigmatec [id number] Family Dependent [id number] [facility] [id number] [facility] Enig[employer] [id number] Family Dependent [facility] [id number] [id number] HEALTH NET JUANITA [id number] [id number] HEA [id number] S [id number] ACTIVE DUTY [id number] SP [id number] [facility] [id number] [id number] Problems, Conditions, and Diagnoses Code Display Name Description Problem Type Effective Dates Data Source(s) O09.90 Supervision of high risk , unsp ecified, unspecified trimester Supervision of high risk , unspecified, unspecified trimester Diagnosis 03/23/2021 12:00:00 AM EDT [facility] O10.912 Unspecified pre-existing hyp ertension complicating , second trimester Unspecified pre-existing hypertension co mplicating , second trimester Diagnosis 01/31/2021 04:48:26 PM EDT [facility] N28.9 Disorder of kidney and ureter, unspecifi ed Disorder of kidney and ureter, unspecified Diagnosis 01/31/2021 04:48:03 PM EDT [facility] 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, second trimester related renal disease, second trimester Diagnosis 01/31/2021 04:48:03 PM EDT [facility] O24.312 [id number] Pre-existing diabete s mellitus affecting in second trimester, antepartum Problem 01/26/2021 12:00:00 AM EDT eCW1 ([facility]) O99.212 [id number] Obesity affecting in second tri mester Problem 12/22/2020 12:00:00 AM EDT eCW1 ([facility]) O99.211 Obesity complicating , first tr imester Obesity complicating in first trimester Problem 12/15/2020 12:00:00 AM EDT eCW1 ([facility]) O24.319 Diabetes mellitus in mother complicating , childbirth AND/OR puerperium Pregestational diabetes mellitus, modified White class B Pro blem 11/30/2020 12:00:00 AM EDT eCW1 ([facility]) Z34.80 care Supervision of other normal P roblem 11/30/2020 12:00:00 AM EDT eCW1 ([facility]) Z3A.11 Gestation period, 11 weeks 11 weeks gestation of pregn guillermina Problem 11/30/2020 12:00:00 AM EDT eCW1 ([facility]) Z68.42 [id number] Body mass index [BMI] 45.0-49.9, adult Pr oblem 09/06/2020 12:00:00 AM EST eCW1 ([facility]) N94.10 [id number] Dyspareunia in female Problem 09/06/2020 12: 00:00 AM EST eCW1 ([facility]) E10.22 [id number] Type 1 diabetes mellitus with di abetic chronic kidney disease Problem 09/06/2020 12:00:00 AM EST eCW1 ([facility]) E66.01 [id number] Morbid (severe) obesity due to excess anne ories Problem 09/06/2020 12:00:00 AM EST eCW1 ([facility]) Surgeries/Procedures Procedure Description Date Indications Data Source(s) OFFICE OUTPATIENT VISIT 15 MINUTES 06/15/2021 12:00:00 AM EDT MEDENT ([facility]) OFFICE OUTPATIENT VISIT 15 MINUTES 02/06/2021 12:00:00 AM EDT MEDENT ([facility]) Omt 7-8 Body Regions 08/01/2020 12:00:00 AM EST MEDENT ([facility]) Omt 7-8 Body Regions 07/01/2020 12:00:00 AM EST MEDENT ([facility]) VITAMIN D 25 HYDROXY, TOTAL <td>VITAMIN D 25 HYDROXY, TOTAL</td><td>Routine</td><td>06/23/2020 12:04 PM EST</td><td> Type 1 diabetes mellitus with hyperglycemia Vitamin D deficiency</td><td> </td> 06/23/2020 12:04:00 PM EST Vitamin D deficiencyType 1 diabetes mellitus with hype rglycemia [facility] Vitamin D deficiency Type 1 diabetes mellitus with hyperglyce candice THYROID STIMULATING HORMONE TSH <td>TSH</td><td>Routin e</td><td>06/23/2020 12:04 PM EST</td><td> Type 1 diabetes mellitus with hyperglycemia</td><td> </td> 06/23/2020 12:04:00 PM EST Type 1 diabetes mellitus with hyperglycemia [facility] Type 1 diabetes mellitus with hyperglyce candice LIPID PANEL <td>LIPID PANEL</td><td>Rout ine</td><td>06/23/2020 12:04 PM EST</td><td> Type 1 diabetes mellitus with hyperglycemia</td><td> </td> 06/23/2020 12:04:00 PM EST Type 1 diabetes mellitus with hyperglycemia [facility] Type 1 diabetes mellitus with hyperglyce candice POCT GLUCOSE, DOCKED <td>POCT GLUCOSE, DOCKED</td ><td>Routine</td><td>06/23/2020 10:51 AM EST</td><td></td><td> </td> 06/23/2020 10:51:00 AM EST [facility] Results ID Date Data Source [id number] 04/17/2021 11:19:53 AM EDT [facility] Name Value Range Interpretation Code Description Data Tami rce(s) Supporting Document(s) Progress Note [facility] KQSTBl3fHgLPQiCa36/LBAhqPCMgm5ZyKHeeNRe3EJjlAORgM7JqBQR2qH9fUSU6FNpXZlJyVsGnFILm lbm [file] TWoZFo6+t4So9ap7Hvo0MI/IR5osfNgmKEknq1+V3onYHcIFcpvB93gJZVVJ/Jose Ramon/7xkTZMwvFKxsK/rb [file] OPS2QvlqF5DnFAHmVkL0MQI9JSV3Lb4wZQRCQb9+PTjldIJhpXjuLHLYEmDfZJU9SDtjWNFALa5A ID Date Data Source [id number] 04/17/2021 10:40:57 AM EDT [facility] Name Value Range Interpretation Code Description Data Tami rce(s) Supporting Document(s) Progress Note [facility] YSMRPr9sZqUGZqRt16/HEDayBQKnp7DbQEdkNZh9NGqdHBPkY7AeXGF6dJ9hQKV6VHdMAdNxKsJpJBCi lbm [file] ICAgICAgICAgICAgICAgICAgICAgICAgICAgICAgICAgICAgICAgICAgICAgICAgICAgICAgICAgICAg ICAgICAgICAgICAgICAgICAgICAgICAgICAgICAgIC AgICAgICAgDQogICAgICAgICAgICAgICAgICAgICAgICAgICAgICAgICAgICAgICAgICAgICAgICAgIC AgICAgICAgICAgICAgICAgICAgICAgICAgICAgICAgICAgICAgICAgICAgICAgICAgDQogICAgICAgIC AgICAgICAgICAgICAgICAgICAgICAgICAgICAgICAg ICAgICAgICAgICAgICAgICAgICAgICAgICAgICAgICAgICAgICAgICAgICAgICAgICAgICAgICAgICAg DQogICAgICAgICAgICAgICAgICAgICAgICAgICAgICAgICAgICAgICAgICAgICAgICAgICAgICAgICAg ICAgICAgICAgICAgICAgICAgICAgICAgICAgICAgIC AgICAgICAgICAgDQogICAgICAgICAgICAgICAgICAgICAgICAgICAgICAgICAgICAgICAgICAgICAgIC AgICAgICAgICAgICAgICAgICAgICAgICAgICAgICAgICAgICAgICAgICAgICAgICAgICAgDQogICAgIC AgICAgICAgICAgICAgICAgICAgICAgICAgICAgICAg ICAgICAgICAgICAgICAgICAgICAgICAgICAgICAgICAgICAgICAgICAgICAgICAgICAgICAgICAgICAg ICAgDQogICAgICAgICAgICAgICAgICAgICAgICAgICAgICAgICAgICAgICAgICAgICAgICAgICAgICAg ICAgICAgICAgICAgICAgICAgICAgICAgICAgICAgIC AgICAgICAgICAgICAgDQogICAgICAgICAgICAgICAgICAgICAgICAgICAgICAgICAgICAgICAgICAgIC AgICAgICAgICAgICAgICAgICAgICAgICAgICAgICAgICAgICAgICAgICAgICAgICAgICAgICAgDQogIC AgICAgICAgICAgICAgICAgICAgICAgICAgICAgICAg ICAgICAgICAgICAgICAgICAgICAgICAgICAgICAgICAgICAgICAgICAgICAgICAgICAgICAgICAgICAg ICAgICAgDQogICAgICAgICAgICAgICAgICAgICAgICAgICAgICAgICAgICAgICAgICAgICAgICAgICAg ICAgICAgICAgICAgICAgICAgICAgICAgICAgICAgIC GzKWSxOAEiRSWvHIQeCITnHDz8I7glQYIuSWBwUF1oWSv6Sz6+QCmQKlWqUQK3dvCehU8QXX8pm4HzLI ttEAKsm7TtXBr5ZV6VXMNtVKqqAC7IBHptqq7KKUWhCCPeiWISo8pxEdGdGWU0XIJqJrgpOB8FUVUmR6 pytsTuPRHuNOEPRYdxWUSKUDxyDMBDFY3MBjRoG5Gg gU58QMQSUs4+VBgxuqDnBcxDNbGqNNRup1ZsDIw3FI8HAFTcGkese2ZbKbRiQIPKDKjmVM5MIBP7UPW0 BWHmFx8VFVBbG712ybDlTD8EBd0HKnDcPB5xcr1LIhQiRHPsCpoAWdf9CEwyBO0AiSVkRNdTce2qsvUe rzWKe9XfoaJxrCPHXYTnRQfqCWJvDHKwOX4UZXF0SA gjAnKyNoCdYSWiPHbtIINFPZhZIaMyT8Hay1ZuMkC5XTOhAbZtQRbqRKMiIpS6QY69aNevHR3UJDCeWZ RhGS92TSNxTIEqTx5JMb8PXsIgAX3sxc2TYdNdVMPiBelQMei0GMhnWN0ZiDFxG9YxrTHtt6xHHaCdE1 ZNJXXeUKZtKf1MHIStZzYqIPQxEZtaNX4jUCFkEDOL wByknuI5KO0ZVV5pigVmHY8HSxBsZh5vKs0XOnRwK6SsQ3FnZEXtWYHRHOqfQF1DUDedUU5xRM0Uw8SH xIRioI8rwd5QICIcAWJdRnvkya4FGcvlO6D2aYmiZMFdFyCbRKTBEZctIG6DPJFcUYV0LNPrSgMcVWWH FrJkW75fLZ0UT7Ynu02wYcL4LUHcOiRbEQipDM87qV nsydGxlGVswGqeAJ5LIb4+OHalgzYfTmbYWwrhVHPIKyJvVjBJLgAmJZIjXEUwYZSvJrV0DzWeZc8VMS MiXCHzWWVqFwTsCVXcDQHrALgpZOVbLHIhQPLyOWSyPQIcBW3ALiChKWEcIpBxXSbmFZTaLIUeos3HBU BsAMCwKEM3UfYaLRGlQKUuRYrcBGBmIYNdQwW2CEJx VEXsLC6WKvSaMXDqGPJ0VVEcMNIoZNAfjo9YGZVeQTTxKaL9VSMgSDVtMGIpLIctNIQtUQS7PeolWFMl CHFzZV1EIaYzLGEaCFfePDiyNWRzAZIxgs6XXZZvCLThWbA5IhSbJXBtNJMbSHkjRALjCSX9KELgKIGx CKMfHI3PWnKrYHRcYOu7ILOfRLTbBLRiew7PDKCmOZ DmECc7EgLsTNUyULGcHNegYYLyGHS4KnMxWWMbBHFjRC8QFrSvNBDfOCf9KCUkHMKjJPOvcs6TYEPiQY IuLJC9DfNlNASkLBUxEHbgARQqSOEwWYb4FCMtNZLnRV2EUwAxBUWpXsH5XYRvYQQnUBMgrh6MHPQiOQ AyMjAyMiAwMDAwMCBuDQowMDAwMDIyMjYyIDAwMDAw ZK2JKyYsDOLuAjU4YJxzRYRcLFIlmw5BPZRiRJVlMjrkWZDnYDGpYZVyROzpZIHfIJY9GfY7MYRkGLQl XL0BIjVnRXHfVwAuPuPaBMRgDCNdda3OGJIqGTSaASH8LnXnWJAkTQJlJKl9gbEktAWdHFg9GO7FW7Sd uuNdYfMWKg2Yh977NSN2HRFkPu7YF0zeUz3lBOUfBP WJXl5NHDj5MvFuFuhrOLH4WZT2DDGhBYPjDcEcJWOhYRohTKcsJJR+MCb4ATOgN4WfTTV0XNr3LPT6PR TuRfJgEjQ8JNC9LAMqTU8vMBYHBj0+PCrprBDqtOfqBGMQFiY1SxTwTPxzQSUBFu1A ID Date Data Source [id number] 05/02/2021 10:16:24 AM EDT [facility] SPECIMEN DESCRIPTION LUNGSPECIAL REQUESTS NONECULTURE RESULTS NO FUNGUS ISOLATED AFTER 5 WEEKSREPORT STATUS FINAL 05/02/2021 Name Value Range Interpretation Code Description Data Tami rce(s) Supporting Document(s) ID Date Data Source [id number] 05/02/2021 10:16:24 AM EDT [facility]IV[facility] SPECIMEN DESCRIPTION SITE SPLEENSPECIAL REQUESTS NONECULTURE RESULTS NO FUNGUS ISOLATED AFTER 5 WEEKSREPORT STATUS FINAL 05/02/2021 Name Value Range Interpretation Code Description Data Tami rce(s) Supporting Document(s) ID Date Data Source [id number] 04/11/2021 07:24:20 AM EDT [facility] Name Value Range Interpretation Code Description Data Tami rce(s) Supporting Document(s) SPECIMEN SOURCE [facility] LUNG RESULT: [facility] PER[facility] LAB: [facility] [address] [place] [address] ID Date Data Source [id number] 04/11/2021 07:23:55 AM EDT [facility] Name Value Range Interpretation Code Description Data Tami rce(s) Supporting Document(s) SPECIMEN SOURCE [facility] SPLEEN RESULT: [facility] PER[facility] LAB: [facility] [address] [place] [address] ID Date Data Source [id number] 03/31/2021 08:52:16 AM EDT [facility]IV[facility] SPECIMEN DESCRIPTION SITE SPLEENSPECIAL REQUESTS NONECULTURE RESULTS NO ANAEROBES ISOLATEDREPORT STATUS FINAL 03/31/2021 Name Value Range Interpretation Code Description Data Tami rce(s) Supporting Document(s) ID Date Data Source [id number] 03/31/2021 08:49:55 AM EDT [facility] SPECIMEN DESCRIPTION SITE SPLEENSPECIAL REQUESTS NONEGRAM STAIN [...] rce(s) Supporting Document(s) ID Date Data Source [id number] 03/31/2021 08:13:43 AM EDT [facility] SPECIMEN DESCRIPTION LUNGSPECIAL REQUESTS NONECULTURE RESULTS NO ANAEROBES ISOLATEDREPORT STATUS FINAL 03/31/2021 Name Value Range Interpretation Code Description Data Tami rce(s) Supporting Document(s) ID Date Data Source [id number] 03/30/2021 12:05:04 PM EDT [facility] SPECIMEN DESCRIPTION LUNGSPECIAL REQUESTS NONEGRAM STAIN MODERATE (10 TO 25/LPF) WHITE BLOOD CELLS NO BACTERIACULTURE RESULTS FEW STREPTOCOCCUS PASTEURIANUS (S.BOVIS) MODERATE ENTEROCOCCUS SPECIES RARE ESCHERICHIA COLIREPORT STATUS FINAL 03/30/2021 Name Value Range Interpretation Code Description Data Tami rce(s) Supporting Document(s) ID Date Data Source [id number] 03/27/2021 09:33:29 AM EDT [facility] Name Value Range Interpretation Code Description Data Tami rce(s) Supporting Document(s) POC GLUCOSE 119 mg/dL (70-99) H [facility] PERFORMED BY CLINICAL STAFF ID Date Data Source [id number] 05/10/2021 09:33:25 AM EDT [facility] [place] [address] [place], [place] [address]Kdi# SURGICAL PATHOLOGY REPORTReceived:03/27/2021ccession #:[id number](s) Received: A: PlacentaClinical Diagnosis and History: Gestational [...] areasof maternal-based fibrin scattered throughout that involves nteyykhobtyxz06% of the total cut surface. The remaining [...] 14:35Electronically Signed Out By Khushbu Vargas MD [facility] BlancoThis report may include one or more immunohistochemical or in-situhybridization results. Testing has been developed and the performancecharacteristics were determined by [facility]IV[facility] as requiredby [place] '88 regulations. The tests may not have been approved for a givenspecific use by the [place] Food and Drug Administration, but the FDA hasdetermined that such approval is not necessary for clinical use.ICD9 codes: O43.819Procedures/AddendaCytogenetics Date Ordered: 05/10/2021 Status: Signed Out Date Complete: 05/10/2021 By: Best Ellis Date Reported: 05/10/2021 [facility] ReportCYTOGENETIC RESULTS: 46,XY[7]/46,XX[13]INTERPRETATION:An apparently normal male [...] rce(s) Supporting Document(s) ID Date Data Source [id number] 03/27/2021 07:28:31 AM EDT [facility] Name Value Range Interpretation Code Description Data Tami rce(s) Supporting Document(s) WBC 18.3 10*3/uL (4.1-11.0) H [facility] RBC 3.62 10*6/uL (4.00-5.40) L [facility] HGB 10.1 g/dL (12.0-16.0) L [facility] HCT 31.2 % (36.0-47.0) L [facility] MCV 86.2 fL (80.0-95.0) [facility] MCH 28.0 pg (27.0-32.0) [facility] MCHC 32.5 g/dL (32.0-36.0) [facility] RDW 15.6 % (10.5-14.5) H [facility] PLT 358 10*3/uL (150-450) [facility] MPV 8.5 fL (7.1-10.7) [facility] NEUT % 75.0 % (35.0-75.0) [facility] BAND % 1.0 % (0.0-11.0) [facility] LYMPH % 16.0 % (16.0-52.0) [facility] MONO % 8.0 % (0.0-8.0) [facility] NEUT # 13.7 10*3/uL (1.8-7.7) H [facility] [place] BAND # 0.2 10*3/uL [facility] LYMPH # 2.9 10*3/uL (1.2-4.8) [facility] MONO # 1.5 10*3/uL (0.0-0.8) H [facility] ANISO 1+ [facility] POLY 1+ [facility] ID Date Data Source [id number] 05/08/2021 06:53:01 AM EDT [facility] Name Value Range Interpretation Code Description Data Tami rce(s) Supporting Document(s) CYTOGENETIC RESULT [facility] PER[facility] [address] [place] [address] ID Date Data Source [id number] 03/26/2021 11:41:18 PM EDT [facility] Name Value Range Interpretation Code Description Data Tami rce(s) Supporting Document(s) POC GLUCOSE 116 mg/dL (70-99) H [facility] PERFORMED BY CLINICAL STAFF ID Date Data Source [id number] 03/26/2021 04:36:27 PM EDT [facility] Name Value Range Interpretation Code Description Data Tami rce(s) Supporting Document(s) POC GLUCOSE 111 mg/dL (70-99) H [facility] NOTIFIED NURSEPERFORMED BY CLINICAL S TAFF ID Date Data Source [id number] 03/26/2021 10:48:43 AM EDT [facility] Name Value Range Interpretation Code Description Data Tami rce(s) Supporting Document(s) POC GLUCOSE 123 mg/dL (70-99) H [facility] NOTIFIED NURSEPERFORMED BY CLINICAL S TAFF ID Date Data Source [id number] 03/26/2021 09:13:10 AM EDT [facility] Name Value Range Interpretation Code Description Data Tami rce(s) Supporting Document(s) POC GLUCOSE 126 mg/dL (70-99) H [facility] PERFORMED BY CLINICAL STAFF ID Date Data Source [id number] 03/25/2021 06:51:45 PM EDT [facility] Name Value Range Interpretation Code Description Data Tami rce(s) Supporting Document(s) POC GLUCOSE 107 mg/dL (70-99) H [facility] NOTIFIED NURSEPERFORMED BY CLINICAL S TAFF ID Date Data Source [id number] 03/25/2021 03:21:03 PM EDT [facility] Name Value Range Interpretation Code Description Data Tami rce(s) Supporting Document(s) POC GLUCOSE 74 mg/dL (70-99) [facility] NOTIFIED NURSEPERFORMED BY CLINICAL S TAFF ID Date Data Source [id number] 03/25/2021 11:45:42 AM EDT [facility] Name Value Range Interpretation Code Description Data Tami rce(s) Supporting Document(s) POC GLUCOSE 130 mg/dL (70-99) H [facility] NOTIFIED NURSEPERFORMED BY CLINICAL S TAFF ID Date Data Source [id number] 03/25/2021 08:12:59 AM EDT [facility] Name Value Range Interpretation Code Description Data Tami rce(s) Supporting Document(s) POC GLUCOSE 90 mg/dL (70-99) [facility] NOTIFIED NURSEPERFORMED BY CLINICAL S TAFF ID Date Data Source [id number] 04/07/2021 08:21:43 AM EDT [facility] Name Value Range Interpretation Code Description Data Tami rce(s) Supporting Document(s) RESULT [facility] PER[facility] [address] [place] [address] ID Date Data Source [id number] 03/25/2021 02:18:07 PM EDT [facility] Name Value Range Interpretation Code Description Data Tami rce(s) Supporting Document(s) ALEKS EDWARDS (NFET) [facility] PERFORMED AT [address] [place] [address] [place] [address] ID Date Data Source [id number] 03/25/2021 05:57:16 AM EDT [facility] Name Value Range Interpretation Code Description Data Tami rce(s) Supporting Document(s) URIC ACID 6.1 mg/dL (2.6-6.0) H [facility] ID Date Data Source [id number] 03/25/2021 05:57:16 AM EDT [facility] Name Value Range Interpretation Code Description Data Tami rce(s) Supporting Document(s) LDH 264 U/L (84-246) H [facility] ID Date Data Source [id number] 03/25/2021 05:57:16 AM EDT [facility] Name Value Range Interpretation Code Description Data Tami rce(s) Supporting Document(s) SODIUM 138 mmol/L (136-145) [facility] POTASSIUM 4.2 mmol/L (3.6-5.2) [facility] CHLORIDE 108 mmol/L (100-108) [facility] CO2 23 mmol/L (22-31) [facility] ANION GAP 7 mmol/L (7-16) [facility] UREA NITROGEN 15 mg/dL (7-24) [facility] CREATININE 0.95 mg/dL (0.60-1.00) [facility] BUN/CREAT RATIO 15.8 RATIO (10.0-20.0) [facility] GLUCOSE 109 mg/dL (70-99) H [facility] CALCIUM 8.6 mg/dL (8.4-10.2) [facility] TOTAL PROTEIN 6.3 g/dL (6.4-8.2) L [facility] ALBUMIN 2.3 g/dL (3.5-4.6) L [facility] GLOBULIN 4.0 g/dL (2.7-4.3) [facility] ALB/GLOB RATIO 0.6 RATIO [facility] ALKALINE PHOSPHATASE 127 U/L (45-117) H [facility] BILIRUBIN,TOTAL 0.1 mg/dL (0.0-1.0) [facility] PLEASE NOTE:Total bilirubin results may be falselyelevated in patients taking Eltrombopag. AST (SGOT) 34 U/L (11-39) [facility] ALT (SGPT) 41 U/L (12-78) [facility] GFR >60 ml/min/1.73m2 (>59) [facility] GFR ( AMER) >60 ml/min/1.73m2 (>59) [facility] GFR INTERPRETATION [facility] --NORMAL KIDNEY FUNCTION OR MILD DISEASE - GFR >OR= 60CHRONIC KIDNEY DISEASE - GFR 15 - 59RENAL FAILURE - GFR <15 Est. GFR calculation based on the MDRDstudy equation, which assumes a steadystate for creatinine. Est. GFR should notbe used for medication dosing. ID Date Data Source [id number] 03/25/2021 05:49:25 AM EDT [facility] Name Value Range Interpretation Code Description Data Tami rce(s) Supporting Document(s) APTT 24.1 s (22.0-34.3) [facility] ID Date Data Source [id number] 03/25/2021 05:28:43 AM EDT [facility] Name Value Range Interpretation Code Description Data Tami rce(s) Supporting Document(s) WBC 13.6 10*3/uL (4.1-11.0) H [facility] RBC 3.99 10*6/uL (4.00-5.40) L [facility] HGB 11.2 g/dL (12.0-16.0) L [facility] HCT 34.5 % (36.0-47.0) L [facility] MCV 86.3 fL (80.0-95.0) [facility] MCH 28.1 pg (27.0-32.0) [facility] MCHC 32.5 g/dL (32.0-36.0) [facility] D[facility] Y RDW 15.7 % (10.5-14.5) H [facility] PLT 377 10*3/uL (150-450) [facility] MPV 8.5 fL (7.1-10.7) [facility] ID Date Data Source [id number] 03/30/2021 09:11:07 AM EDT [facility] Name Value Range Interpretation Code Description Data Tami rce(s) Supporting Document(s) TSH RECEPTOR AB 1.01 IU/L [facility] Reference range: <=1.75 Performed By: [place] [employer] [address] [place] [id number] Resident Care Manager Rn: Nina Leon MD ID Date Data Source [id number] 03/29/2021 07:28:28 PM EDT [facility] Name Value Range Interpretation Code Description Data Tami rce(s) Supporting Document(s) PARVO B19 IGG AB 5.53 H [facility] Reference range: <=0.90Unit: IV INTERPRE [...] time. PARVO B19 IGM AB 0.30 Lab [facility] Reference range: <=0.90Unit: IV INTERPRE TIVE INFORMATION: [...] levels of specific IgM antibodies. Performed By: [employer] [address] [place] [address] Resident Care Manager Rn: Nina Leon MD ID Date Data Source [id number] 03/28/2021 02:06:25 PM EDT [facility] Name Value Range Interpretation Code Description Data Tami rce(s) Supporting Document(s) DRVVT CONFIRM @ 32.4 s [facility] DRVVT RATIO @ 1.50 (<1.31) H [facility] LUPUS ANTICOAGULANT IS DETECTED IN THE D ILUTERUSSELL'S VIPER VENOM ASSAY. TRANSIENT LOW-POSITIVE RESULTS MAY BE SEEN IN A NUMBER OFINFLAMMATORY, INFECTIOUS, AND MALIGNANTDISORDERS. REPEAT TESTING IN 12 WEEKSIS RECOMMENDED TO DETERMINE PERSISTENCEOF THE LUPUS ANTICOAGULANT. ID Date Data Source [id number] 03/28/2021 02:06:04 PM EDT [facility] Name Value Range Interpretation Code Description Data Tami rce(s) Supporting Document(s) DRVVT SCREEN @ 48.5 s (<44.1) H Lab [facility]FA APTT @ 20.7 s (22.0-34.3) L [facility] Seo A NORMAL APTT DOES NOT RULE OUT THE PRES ENCEOF A LUPUS ANTICOAGULANT. IF CLINICAL HISTORYIS STRONGLY SUGGESTIVE, FURTHER TESTING ISRECOMMENDED. CARDIOLIPIN IGA @ 1 APL (0-12) Lab [facility] INTERPRET ATION OF RESULTS: < 12 UNITS NEGATIVE 12 - 20 UNITS EQUIVOCAL > 20 UNITS POSITIVE The following result was obtained withthe [employer] Mobile[employer] Lite SAMANTHA IgA III GUANACO.Results obtained with other manufacturers'assay methods may not be used interchangeably.The magnitude of the reported IgA levelcannot be correlated to an endpoint titer. CARDIOLIPIN IGG @ 4 GPL (0-15) Lab [facility] INTERPRET ATION OF RESULTS: < 15 UNITS NEGATIVE 15 - 19 UNITS EQUIVOCAL 20 - 79 UNITS MOD POSITIVE > 79 UNITS HIGH POSITIVE The following result was obtained withthe [employer] QUANTA Lite SAMANTHA IgG III GUANACO.Results obtained with other manufacturers'assay methods may not be used interchangeably.The magnitude of the reported IgG levelscannot be correlated to an endpoint titer. CARDIOLIPIN IGM @ 12 MPL (0-12) Lab [facility] INTERPRET ATION OF RESULTS: < 12 UNITS NEGATIVE 12 - 19 UNITS EQUIVOCAL 20 - 79 UNITS MOD POSITIVE > 79 UNITS HIGH POSITIVE The following result was obtained withthe [employer] QUANTA Lite SAMANTHA IgM III GUANACO.Results obtained with other manufacturers'assay methods may not be used interchangeably.The magnitude of the reported IgM levelcannot be correlated to an endpoint titer. ID Date Data Source [id number] 04/03/2021 06:24:48 PM EDT [facility] [address] [address]Kae# Fax# AUTOPSY REPORTAccession #:[id number] SummaryFETAL AUTOPSYMale [...] loss and contractions.Mrs. Prado was admitted to [facility] on 03/24/2021 for labor inductiondue to intrauterine demise. Misoprostol was placed and Male BabyWolf was subsequently delivered on 03/26/2021 at 2223. Apgars were 0, 0. Gestational Age: 27.0Authorized By: Silvestre Prado / Brett PradoRelationship to Patient: ParentsReason for Autopsy: Reason not givenAutopsy Restrictions: None NO RESTRICTIONSGross DescriptionMeasurements/Weights with normals at 27 weeks gestation:Body weight: 509.2 g* (639 - 1033 g)[place]- rump: 22.0 cm (21.7 - 26.7 cm)[place]-heel: 30.1 cm (29.9 - 36.9 cm)Heel-toe: 4.0 [...] The autopsy is prosected by OLGA Tomas ([facility] S. The university administrative assistant is Fabrizio Roth. Theautopsy permission [...] and Hassallcorpuscles identified. Section of bone shows business information analyst ossification with associated marrow showingautolysis with outline [...] SEVERE. B. NO CONGENITAL ANOMALIES IDENTIFIED.2 PLACENTA ([id number]): 134 GM (SMALL FOR GESTATIONAL AGE) PLACENTA SHOWING FOCI OF INFARCTION (50%). CHORIONIC VILLI WITH CHANGES OF INTRAUTERINE DEMISE. Reported: 04/03/2021 18:23 Electronically Signed Out By Lisseth Carvajal M.D. rff/03/28/2021 [facility] [address] [id number] component performed at [facility], Histopathology, [address] [place] [address], [phone].Reported at [facility], [address] [place] [address], [phone].This report may include immunohistochemical or in-situ hybridizationresults. Testing was developed and the performance characteristicsdetermined by [facility] as required by CLIA '88. The FDAhas determined that approval for specific use is not necessary forclinical use. The quality of Hematoxylin and Eosin stains and asapplicable, for all immunohistochemical and/or special stains, includingpositive and negative controls, were reviewed and considered appropriate. Name Value Range Interpretation Code Description Data Tami rce(s) Supporting Document(s) ID Date Data Source [id number] 03/24/2021 07:45:00 PM EDT [facility] Name Value Range Interpretation Code Description Data Tami rce(s) Supporting Document(s) SARS coronavirus 2 RNA [Presence] in Res piratory specimen by SACHIN with probe detection NOT DETECTED [facility] This lab was reported by [facility]. ID Date Data Source [id number] 03/25/2021 11:28:30 AM EDT [facility] Name Value Range Interpretation Code Description Data Tami rce(s) Supporting Document(s) TREPONEMA IGG/IGM @ (NEG) [facility] ID Date Data Source [id number] 03/25/2021 11:09:26 AM EDT [facility] Name Value Range Interpretation Code Description Data Tami rce(s) Supporting Document(s) PROTEIN,URINE 699 mg/dL Lab [facility] URINE PROTEIN MAY BE FALSELY ELEVATEDDUR ING TREATMENT WITH AMINOGLYCOSIDESDUE TO METHOD INTERFERENCE. CREATININE,URINE 292.00 mg/dL [facility] URINE TP/CR RATIO 2.39 RATIO (0.00-0.20) H [facility] ID Date Data Source [id number] 03/25/2021 09:17:38 AM EDT [facility] Name Value Range Interpretation Code Description Data Tami rce(s) Supporting Document(s) URINE WBC (0-5) Lab [facility] URINE RBC (0-2) [facility] EPITHELIAL CELLS 1+ [HPF] [facility] BACTERIA 2+ [HPF] [facility] HYALINE CASTS [facility] ID Date Data Source [id number] 03/25/2021 08:45:16 AM EDT [facility] [place] [facility] Name Value Range Interpretation Code Description Data Tami rce(s) Supporting Document(s) COLOR [facility] APPEARANCE [facility] SPEC GRAV URINE 1.030 (1.003-1.030) [facility] PH URINE 6.0 (5.0-7.5) [facility] LEUK ESTERASE (NEG) [facility] CRITERIA FOR CULTURE NOT MET.CULTURE CAN BE ADDED WITHIN 36 HOURS OFCOLLECTION. NITRITE URINE (NEG) [facility] PROTEIN URINE 3+ (NEG) A [facility] [place] [facility] GLUCOSE URINE 3+ (NEG) A [facility] [place] [facility] KETONE URINE (NEG) [facility] [place] [facility] UROBILINOGEN 0.2 mg/dL (0-1.0) [facility] [place] [facility] BILIRUBIN URINE (NEG) [facility] [place] [facility] BLOOD/HGB URINE (NEG) A [facility] [place] [facility] ID Date Data Source [id number] 03/24/2021 11:38:47 PM EDT [facility] Name Value Range Interpretation Code Description Data Tami rce(s) Supporting Document(s) SPECIMEN DESCRIPTION [facility] INFLUENZA A (NEG) [facility] [place] [facility] Y INFLUENZA B (NEG) [facility] [place] [facility] Y RSV (NEG) [facility] [place] [facility] COMMENT [facility] [place] [facility] [place] FDA HAS MADE THIS TEST AVAILABL EUNDER AN EMERGENCY USE AUTHORIZATION(EUA) FOR THE DETECTION AND/OR DIAGNOSISOF THE VIRUS THAT CAUSES COVID-19.PERFORMED AT [address] [facility] [id number] COVID19 RESULT (NDET) [facility] [place] [facility] THIS ASSAY AMPLIFIES AND DETECTSTHE TARG ET RNA USING REAL-TIME PCR.TESTING PERFORMED ON [employer] GENEXPERTNEGATIVE 2019_NCOV RT-PCR RESULTS DONOT PRECLUDE 2019_NCOV INFECTION ANDSHOULD NOT BE USED THE SOLE BASISFOR PATIENT MANAGEMENT DECISIONS. FIRST TEST [facility] EMPLOYED IN HLTHCARE [facility] SYMPTOMATIC [facility] [place] Y DATE OF SYMPT ONSET [facility] HOSPITALIZED [facility] ICU [facility] CONGREGATE CARE SET [facility] ID Date Data Source [id number] 03/24/2021 11:36:22 PM EDT [facility] SPEC EXP DATE 1PATI ENT ABO/Rh A POSITIVEANTIBODY SCREEN NEGATIVETESTING SITE PERFORMED AT [address] [place] [address] Name Value Range Interpretation Code Description Data Tami rce(s) Supporting Document(s) ID Date Data Source [id number] 03/24/2021 11:31:16 PM EDT [facility] Name Value Range Interpretation Code Description Data Tami rce(s) Supporting Document(s) AMPHETAMINES,URINE (NEG) [facility] BARBITURATES,URINE (NEG) [facility] BENZODIAZEPINE,URINE (NEG) [facility] CANNABINOIDS,URINE (NEG) [facility] COCAINE,URINE (NEG) [facility] OPIATES,URINE (NEG) [facility] NOTE: Oxycodone is not sufficientlydetec brian by this screening assay. A moresensitive assay is available upon request. PHENCYCLIDINE,URINE (NEG) [facility] PLEASE NOTE: [facility] YEAGER ARE REPORTED POSITIVE WHEN THE RESULT [...] FORMONITORING MEDICATION COMPLIANCE. ID Date Data Source [id number] 03/24/2021 11:04:19 PM EDT [facility] Name Value Range Interpretation Code Description Data Tami rce(s) Supporting Document(s) WBC 12.4 10*3/uL (4.1-11.0) H [facility] RBC 3.85 10*6/uL (4.00-5.40) L [facility] HGB 10.7 g/dL (12.0-16.0) L [facility] [place] Y HCT 33.6 % (36.0-47.0) L [facility] [place] [facility] MCV 87.4 fL (80.0-95.0) [facility] MCH 27.7 pg (27.0-32.0) [facility] MCHC 31.7 g/dL (32.0-36.0) L [facility] RDW 15.9 % (10.5-14.5) H [facility] PLT 417 10*3/uL (150-450) [facility] MPV 9.4 fL (7.1-10.7) [facility] ID Date Data Source [id number] 03/23/2021 02:32:04 PM EDT [facility] Name Value Range Interpretation Code Description Data Tami rce(s) Supporting Document(s) Progress Note [facility] YFSUUp2fLdPFNdHb70/FNWhnAHPvw3XqXIifOHo8YLbkRKLqL6FaCQO6zE8dEPA6HRvLMfGpXkJvEBY8 lbm NvChaJNuGjNQUiRkmVYbMfMYwoNzfpkTCkJS0HaNT5BAZwK28hYQCwNBXpP8HdLRJ3Tbg+Oz1DUFSmgZ PzTM6WAgpN3LtYfuq0FW7b7K7DnWEMMSePKamwbwCVCwpg1yLAuyWswp7vvlDeSdZ1g0EW//wnSVu4N6 Wz2BubFHd7UD2LvgY3WJAq6s+/5E7Mgb5I/X/9MdGC uLheiq2Uv84X9ujrB5pOChcftKAvvN7T8XASQ0QpxSyUPC1JZsmNBRAsaQP0z2cw7zVOe2n3IbeOhqXs wNupAOx7p1UYghlxFLOcij5RSWRXDuTSfnARaExetTgyVFZHFjvrzhIlmVDvrsrrEsY3fAJXoYQIPKJJ UTqzHUCgNBWIMBGawcg39Sf3rmDtYgeOl/U0ViRzjd zYM0IBzeyMJgqBuHYFcz97YQcNAFs6g4WoCmXiiLTybBD8OXRajsO6hDgrX/mYkBTEHXKcl1OlXJYEss a6Uvm3KiJJpAo4v7hbv2KgXAa4AbICI7Jpwr/WDR7GQG4RR81YGy3Oe9waYnBabFmESgtNrelVzMyjk7 PI/7cD0h70CfDJS6a/PLfh904h4IK6k1Fj/s3gsw8t AH8KX4zFkD5Ex/5NmTBWqjPfwesX/bTthV1pnuYaVPu1A45xBlXqneoPQmJ6+QDMLInOOvhDR0sLPTN3 VNkz4SIb3/j6qajRmL6ldodB5D1y9UXRWv4vJwp8gx9mtNzguHoFKxEsGB4pJSZhfpYiZ3Q3AU+f/Eran Mp+6nAPb7DfEaeWPj4sEymYeArzDuhS7nUlxr7cELZ KqW9Bfc2nuwfDh6Z3r3sFy+GQhDUNsGT4pCW1/AfYooYaoNysvhPvhFc6EEJwCLoFMKbgDcU4LCSumFm Jlm80J9uQYFxOs57peUiniPee1h6HsvXMs8NBoPU5TszB+1Tq7RVAv4bib5xuwXQq6kbeCgRZunYtArE LblIkQfZ065S4MZ4Ilm1v5KaDDvre1c10fJUHSk2PT sI2xqMm2ww5rTTSOP4xWffNdepCOZDysMKyv1BwZbQCFcb4yuzLswQdK7oyt27H6sTfVZitzZbxFIq5X DYXFQ4SUkCGqQqlSaJuRVd44zPoZ6eSQTlRGvF/UEZW3SdQaJljLrXuU8P89Zl5E4GUIhN53oKX1ZWaA 1k+2UT6nGaOwuqnOoYcWjbAhBXnPq+Kamar+ElyZTMUZ [file] ZTgxYjMzZDA+PF2dUSz+Or4Sf3YukrM1qfDzNGccJOU4LJ8URDTMS9YBPg== ID Date Data Source [id number] 03/23/2021 02:17:13 PM EDT [facility] Name Value Range Interpretation Code Description Data Tami rce(s) Supporting Document(s) Progress Note [facility] IGOLLx4pZeTIRdAc00/SVXfvPHFhk1FdJXwkCLx7GDqlBMGeG7EkWQX1lZ4jYFB0AOmOHcSfDdFaJXL0 lbm BwBpeRIgBcQCWwKefOAhSxVEggCrhxoDNaXS8JoQC4MUUlH90yVRVuAAClO3ZpOZY6PHA+Bl1HPDJciJ ChZU5VTssG0G5pzbtPIv4ppJ/SfpVPQ2May594UUYm96kERioagiWc0t5evPNHYgZAfkZz/h453FD941 PWyT21CcpsMZNSwoabMwrqjHtE4a//i7FGqD8ojw/W aqeBQevF2bt/xV0ygR4/bycERWWs1N4rToWNsD+B//rQB1da6UXjTqicqDT9mrWil+kF4pBmkU5hJ7+o 1Roxt8lZJfGmWiJ6ZrojlHSbuXeEvnFimxdjOlTMVXhmaHMAVHEpK+OmKzPSrsQE6vU9gDf+c3KMDRB0 9b1EXn48xvTDMJW+JBTUFMwomELQo+D7byr4+6F603 lWfS8O/mL8nqhCyTPC1XcsHX1ib8vJJcuoANARa91Ghq5jY6hSnerNyPY+Im1bAK0Z+bQg+cjJ56LoOb zfJ0NtanGCRYcMOOn2buJImToEh/6a1TVUzvSyLtoyK/Ked90On7W72pIp1A7pwWGKW5dTsvvQKi5dT8 nAHGZWcF2ePWRPwsbE8LVkEVW72BAj4g3UH4IW89il A2tGw0fuZ3pKDJZxCe/Q8Muz3EMyvG9cO1kAatXfksLVwYrt9Nuz86kdQlWMAo5mB4TXj3WJ9Uifmt3m KYqSLSV/cX6+nDfRJRETd2sGLD4zHz32kV7S4Iv+5WuYW82/bd1iH45/OVLH/l60FwgvNsetXXrHI9Tb RACHNA/iU9xZ4dU1THnU26wKU859iBMg/ZN/iNg9t2rDCV [file] ahEminHLX4IIV1Jmj0CwS4DQR9SV3iDTVYVn8+EUxnhIMsxDubVCRVQlW0PqK8IDlcGDRDCb0B ID Date Data Source [id number] 03/03/2021 04:12:22 PM EDT [facility] Name Value Range Interpretation Code Description Data Tami e(s) Supporting Document(s) Progress Note [facility] CYAGLm1fSqWVRgUf49/NZWhsEPRxy2WlYXlaQFe5UPonRVCxE7QeQRA5aB4aPOE5LXdMBoGjGjCdFbS2 lbm BcRkwCTsZkKRIuCpkDIxFeGLqcCorvuRClNG7GxRM4YRLnM03tMOYqDIWwX3JoZQS2UEW+Wh6XSTAtgE SqCL4ERybH4S8ic0oNJh2aaF5msBIhI7Gs8iYtKOp3DYhq4FSvLG1Onk4boQlk9P1LF7iq/05Q8rSwPv Q81q2WjmuRQJmITE4NstkNFegn2N1/t8edSfkQ44/q 5ouC5wIs/zhZjl1DY0jj2g+zv8dFAaQc9c/Uv/mt3ZbgWPlmaQvnhTU1pP51TBpKcO0LFjJ71FnhtlwN jzwbMcnnMEdv3TA6aLkAHqMl7fVEYf46VXLTwVzuyv7niHHdUlhqBXcgklNKJNU+pY/Si5+vxWQ3sj15 NRNaUdbZuIq4ftMAFMJSlZCJCNQFE88sdn6ff/eDte yWZQKJmq7EmxesyUfeVt+A3NTOECHieaKmgXVua0OGwLMr9yczkmdiEghvZ2HanqbDW10p7PkMg6C6+G cnjsGzNdokfOR3VorggL/ATTMhV7aba1V3QPE+q9MwhKEYM9sTMND6mZwAoinoouYqfA4exCCrj2Yco6 gRnuwcQy/aGOmdIl0dztD9/6bwKax9/aQW/Er8b/Haile [file] ICAgICAgICAgICAgICAgICAgICAgICAgICAgICAgIC AgICAgICAgICAgICAgICAgICAgICAgICAgICAgICAgICAgICAgICAgICAgICAgICAgICANCiAgICAgIC AgICAgICAgICAgICAgICAgICAgICAgICAgICAgICAgICAgICAgICAgICAgICAgICAgICAgICAgICAgIC AgICAgICAgICAgICAgICAgICAgICAgICAgICAgICAg ICANCiAgICAgICAgICAgICAgICAgICAgICAgICAgICAgICAgICAgICAgICAgICAgICAgICAgICAgICAg ICAgICAgICAgICAgICAgICAgICAgICAgICAgICAgICAgICAgICAgICAgICANCiAgICAgICAgICAgICAg ICAgICAgICAgICAgICAgICAgICAgICAgICAgICAgIC AgICAgICAgICAgICAgICAgICAgICAgICAgICAgICAgICAgICAgICAgICAgICAgICAgICAgICANCiAgIC AgICAgICAgICAgICAgICAgICAgICAgICAgICAgICAgICAgICAgICAgICAgICAgICAgICAgICAgICAgIC AgICAgICAgICAgICAgICAgICAgICAgICAgICAgICAg ICAgICANCiAgICAgICAgICAgICAgICAgICAgICAgICAgICAgICAgICAgICAgICAgICAgICAgICAgICAg ICAgICAgICAgICAgICAgICAgICAgICAgICAgICAgICAgICAgICAgICAgICAgICANCiAgICAgICAgICAg ICAgICAgICAgICAgICAgICAgICAgICAgICAgICAgIC AgICAgICAgICAgICAgICAgICAgICAgICAgICAgICAgICAgICAgICAgICAgICAgICAgICAgICAgICANCi AgICAgICAgICAgICAgICAgICAgICAgICAgICAgICAgICAgICAgICAgICAgICAgICAgICAgICAgICAgIC AgICAgICAgICAgICAgICAgICAgICAgICAgICAgICAg ICAgICAgICANCiAgICAgICAgICAgICAgICAgICAgICAgICAgICAgICAgICAgICAgICAgICAgICAgICAg ICAgICAgICAgICAgICAgICAgICAgICAgICAgICAgICAgICAgICAgICAgICAgICAgICANCiAgICAgICAg ICAgICAgICAgICAgICAgICAgICAgICAgICAgICAgIC AgICAgICAgICAgICAgICAgICAgICAgICAgICAgICAgICAgICAgICAgICAgICAgICAgICAgICAgICAgIC ANCjw/kEDjD5nvbXNvapR9B6lqTl6HMl4USL9vy9DfEGXvLGualnEeRmiYIeObWUHyDuoZKug0RRxbXP 4JjEUxS4TdP5QwKTadBT7SEJZuTJCevKMaNMEjYUBp IhL4VLYxTUvuPD1TdGAcMVwiORTiUKQiXfEjPTGrLMWkSFXeEAKhXOQDBN0HLkIjJ0DvoB48UFMNXe2+ OHlarjEmCuvJYuWuKDPlv4YvZDd2YB6PTDXfJcbed3NfViXeYPRXLCspTX1VHZJ7FTQqPYMiPa8LUQHe F845kvRaCC2ZUq3PBeDxMU4elc5NWyObPIDxUkmJTo y5ZIxeOZ1ChPRcAMnRug4lceUtjiLJu9CkfdKlfGOWNX0ggMCjgkUFIIodgDgqlfpjXpSaDRZaGu5gZt 8xCOSnPQGxLoCtHEVLQW7BOSQoMOAoaZMqWVMuSUXUTO8TZKbiAKV1ZQQcfqBeqWKfJTynON7KBDCsvc QgMzEgMCBSDQo+Dz4NQS7kq5XdYHaiHfKwRP0sam6B TKtKVuQgZ7Y0mMMvX7P3UOczLi9VVLJkUUNzUdbiPRGBGXttPY5GJI3cqqK1FV1HyXFrSMBfBCCyzGOg OKj6S03uuHHfRJsqXQ9WCNF+Natalie+Pn0IHWTiCBDlAQTuFfNbPLGRXkIrQ3TiS3KTt5HdO6AxZF52iCmf dpUoCWbpSA8QBQ2lDNOhESIQFN8LsSHakI9imbRyEF KkDNTEBuOvI66cbFNyLDIbSWZnGCFaGo3MUBCoR5KzxfBdoKntvmDiZTDhCIMGXK2UYMfmtwQsrCAaeR quJR30kYdiXC0JWt4QYlSnBB1eoa2IoORxOc4YQEYxMJ8WSSMkISMaFPPiJRV8OYBzYdGjAUfcKUJoJG GtAOD3PVEkWFZkXX0APiKhFYGoUnnpHUbcGXSaBBRm ki3TAOGqXCQoPHx6RSCePGAkUPGxPMutMJZuOTFmGUZ1KYNmYBThJV7AUhQwPEJvWVMoVNraZELpMZHk cp5YNPRbFAMsLcOlZeDwCGQmMGPxRWxsEPUqFOF5SCm3BPSrXFNlCP5EKxRdLKYmEXB8LKNvETHzVTPa py6ETELcXVJaECH9OgWaHEEfEHJnRBawRAOrOGX8WI p4OFKfZMUaKY8EKtIjSCBjHVBvTsGnVHJyQBRaik1NMGJcELBcCTZjQCYpJDAaAWJiBXjkHEVyTQOyOk m2JFFoYOScQR3JDeWoYTBbCCD4VQVlYSZlVFJtyv8VQYPdUDPsFri7ZAByGFFhVBSaHIzmVKPhNQKtKy L3TTRiIUFeSW1FArEdDGZzGLZ2QhEzVPTfZDLque1J ZEXlZWAvYYBiUSJoRSHeLPTyEXkrVLJjEEW2KCU4KCBuKTIsVP4YBoYgZXMoJxW8LnVvAWDzATGbre8W QNNnULWmGtN1JgFsUZYwLLVmOZzdMACzQJY4EtTgQYXtSZWeUA8LRcOyNNRwHcJ3FwfbVVNxWMJhmn1M ISCaQGMpCfFnLQLxFPBfAATpMXplBSSdROE3ZfRjBF JzJVZlHN7PEiZaGOXvGmr9JXDmQMYyUGRvmt5XZVCsOLTqVWnbFPSnEEHqXNByISrcCVFjFDO4CIX0TX EcQZMvWQ2LRjXqQKBoQrqbDNCjNVOsOJMiiz5EJPDcFRKiBMXgTVVhTFFuWORqSYyeRXYaMVExEFy2EK OwSRPtET8UAjAjLAWmUcXmAKwaFOUzHEYdth6RNSJx TWMeYRR3BJOzGEMpVNTeTZo6jeOytWHfFRc6JN0IJ0IxpwBmAyWBVf1Ts961KHFhITKhOq4KC3zpSu4m SBWtGJDVMz1RQVa3JcN0PRy5SQL7LIJqZVK6PGobPSP9LYQdTDEgYUE0KoD+SXigKPE7EKN2WsdlG2V5 QDc6VRL7CJx3JbLhKiO7RpzxIw6lKOLJNf2+OAtreBWrfTnuPILHGsTtLFFqHZnuUEKWKg5A ID Date Data Source [id number] 03/17/2021 02:10:00 PM [facility] Molecular Genetics ReportName: BRAYAN PRADOMRN: [id number] Number: [id number] Date: 03/03/2021 15:32Received Date: 03/06/2021 11:20Physician(s): JOSIANE GOODMAN,ACCELERATOR TECHNICIAN JOSIANE GOODMAN,NPSpecimen(s) ReceivedA: Peripheral Blood-CF TYPE OF [...] of the CFchromosomes found in the [place] population. The detection rate isdependent upon the racial/ethnic ancestry and is typically lower. Mutations have been classified according to GenBank Legacy mutation names have been used - please contact the labregarding more recent changes to the nomenclature if needed.METHOD: DNA isolated from the patient was tested using the ZaploxAGCystic fibrosis 60 kit v2 IVD assay which includes the 23 ACMG- recommendedmutations (in bold) plus additional global and/or [place] prevalentmutations: Delta F508, Delta I507, G542X, G85E, R117H, 621+1G>T,711+1G>T, R334W, R347P, A455E, 1717-1G>A, R560T, R553X, G551D, 1898+1G>A,2184delA, 2789+5G>A, 3120+1G>A, F3493C, 3659delC, 3849+10KbC>T, P5866X,K3799F, 1078delT, 394delTT, Y122X, R347H, V520F, A559T, S549N, S549RT>G, 1898+5G>T, 2183AA>G, 2307insA, Z1082QL>A, D4921PL>G, D9323D, I7100J(ex.19 [D6811X]), Z4647N (ex. 20), 3876delA, 3905insT, E60X, R75X,406-1G>A, G178R, L206W, 935delA, G330X, Q493X, 1677delTA, 1010wgh4>A,2143delT, K710X, 3791delC, Q890X, 8939jzp3, C1836Y, U2560H, G5051B,W2314P, CFTRdele2,3 and R2770X. In addition, the IVS8-5T/7T/9T variant isreflex tested [...] ofthe Vas Deferens [Efrain Haines et al., 4533-8952, [facility], 4441-2169]; www.cftr2.org; Allie Bahena et al (1993)Nature Genetics 5(3):274-277; Arun ECHOLS et al (2004) Genetics in medicine6(5):387-91; [email or web address].The laboratory maintains production quality analyst and director quality assurance programs toensure a high quality of testing. [...] remainconfidential. rw/jajElectronically Signed By Marco Avendaño, Ph.D., [facility] [place], [facility] MolecularGeneticist 03/17/2021 14:10:19 Name Value Range Interpretation Code Description Data Tami rce(s) Supporting Document(s) ID Date Data Source [id number] 03/03/2021 09:38:47 PM EDT [facility] Name Value Range Interpretation Code Description Data Tami rce(s) Supporting Document(s) Protein [Mass/volume] in Urine 202 mg/dl [facility] Confirmed Creatinine [Mass/volume] in Urine 59.3 mg/dL [facility] Protein/Creatinine [Mass Ratio] in Urine 3.41 mg/mg{creat} [facility] ID Date Data Source [id number] 03/03/2021 02:02:03 PM EDT [facility] Name Value Range Interpretation Code Description Data Tami rce(s) Supporting Document(s) Color of Urine [facility] Clarity of Urine [facility] Glucose [Mass/volume] in Urine by Test strip Negative [facility] Bilirubin.total [Presence] in Urine by Test strip Negative [facility] Ketones [Mass/volume] in Urine by Test strip Negative [facility] Specific gravity of Urine by Test strip 1.020 1.005-1.025 [facility] Hemoglobin [Presence] in Urine by Test strip Negative [facility] pH of Urine by Test strip 6.0 5.0-8.0 [facility] Protein [Mass/volume] in Urine by Test strip Negative [facility] Urobilinogen [Units/volume] in Urine by Test strip 0.2 {Ehrlich_U}/ dL 0.2-1.0 [facility] Nitrite [Presence] in Urine by Test strip Negative [facility] Leukocyte esterase [Presence] in Urine by Test strip Negat isabel [facility] ID Date Data Source [id number] 03/15/2021 04:12:00 PM T [facility] Molecular Genetics ReportName: BRAYAN PRADOMRN: [id number] Number: [id number] Date: 03/03/2021 00:00Received Date: 03/06/2021 11:26Physician(s): JOSIANE GOODMAN,ACCELERATOR TECHNICIAN JOSIANE GOODMAN,NPSpecimen(s) ReceivedA: Peripheral Blood-[facility] for SMATYPE OF STUDY: Spinal Muscular AtrophyCOMMENTS: A peripheral blood sample for this patient was sent to [facility], [place], [address] foranalysis. Please see order in EPIC under Labs tab for scanned externalreport.See report for final results and interpretation.sr/jsElectronically Signed By Marco Avendaño, Ph.D., [facility], [facility] MolecularGeneticist 03/15/2021 16:12:02 Name Value Range Interpretation Code Description Data Tami rce(s) Supporting Document(s) ID Date Data Source [id number] 02/15/2021 04:57:28 PM T [facility] Name Value Range Interpretation Code Description Data [facility] rce(s) Supporting Document(s) Progress Note [facility] LLXHEp7bBrTIVzNl14/MUMqoJCLwn3LnUUycUNm0YRclEIYbD0XjFNN6vA0yMMM6LIfRHkHsXfEiAeMc lbm [file] ICAgICAgICAgICAgICAgICAgICAgICAgICAgICAgICAgICAgICAgICAgICAgICAgICAgICAgICAgICAg ICAgICAgICAgICAgICAgICAgICAgICAgICAgICAgIC ANCiAgICAgICAgICAgICAgICAgICAgICAgICAgICAgICAgICAgICAgICAgICAgICAgICAgICAgICAgIC AgICAgICAgICAgICAgICAgICAgICAgICAgICAgICAgICAgICAgICAgICANCiAgICAgICAgICAgICAgIC AgICAgICAgICAgICAgICAgICAgICAgICAgICAgICAg ICAgICAgICAgICAgICAgICAgICAgICAgICAgICAgICAgICAgICAgICAgICAgICAgICAgICANCiAgICAg ICAgICAgICAgICAgICAgICAgICAgICAgICAgICAgICAgICAgICAgICAgICAgICAgICAgICAgICAgICAg ICAgICAgICAgICAgICAgICAgICAgICAgICAgICAgIC AgICANCiAgICAgICAgICAgICAgICAgICAgICAgICAgICAgICAgICAgICAgICAgICAgICAgICAgICAgIC AgICAgICAgICAgICAgICAgICAgICAgICAgICAgICAgICAgICAgICAgICAgICANCiAgICAgICAgICAgIC AgICAgICAgICAgICAgICAgICAgICAgICAgICAgICAg ICAgICAgICAgICAgICAgICAgICAgICAgICAgICAgICAgICAgICAgICAgICAgICAgICAgICAgICANCiAg ICAgICAgICAgICAgICAgICAgICAgICAgICAgICAgICAgICAgICAgICAgICAgICAgICAgICAgICAgICAg ICAgICAgICAgICAgICAgICAgICAgICAgICAgICAgIC AgICAgICANCiAgICAgICAgICAgICAgICAgICAgICAgICAgICAgICAgICAgICAgICAgICAgICAgICAgIC AgICAgICAgICAgICAgICAgICAgICAgICAgICAgICAgICAgICAgICAgICAgICAgICANCiAgICAgICAgIC AgICAgICAgICAgICAgICAgICAgICAgICAgICAgICAg ICAgICAgICAgICAgICAgICAgICAgICAgICAgICAgICAgICAgICAgICAgICAgICAgICAgICAgICAgICAN CiAgICAgICAgICAgICAgICAgICAgICAgICAgICAgICAgICAgICAgICAgICAgICAgICAgICAgICAgICAg ICAgICAgICAgICAgICAgICAgICAgICAgICAgICAgIC AgICAgICAgICANCjw/kJGgW8kdbJZzouB3C5akGw5XCv8DAT9yu3KyPZXhWRcdqcVjLywBFbDeDVLlLh cKSxz1ITfrZD6DhEEvS5NwD6ThDSgoUK1TQVFuLWNkqZNdGKPcZLEmXzD1RKYzAZxfIP5JlIXjICxuCH VkRLWoTD5IUNVyH674hsWpVW6JTp4UCwGnOY4uxg2E CzQvEPUcNzbANiq9WKfmEM6RwCUxbIBySpMfATEUCzBeL6ntf6LiKwDoJIPUDSyvIA3Hm5YgfLBjKEo+ Lw2POX6um2LpFWsgMnUxJM9zcm6BOQwNPzIgS8YjpFfwQQUbn2roZJWhPU0frQWxLSI9PDGhZkYanQLL SHSlxKKfku7zcaggNWXaQEIlOs4iCR0tUZOvMYYhKa EzKRBUEB7IKFZhVAIxpFLwJKZdDUPADD5OPLukHZX8ZATouoGayQWfOHkuYJ2MOEQjcmOqYgKdBOGAKE o+Mw0OZZ3cn9HiMWokNBFsXZ5rka9JYLsMDrGoZ9Z9uYXiI4T6SVrbYd7LDALkIOOwNvSlTIEOIFghNH 9ZCC2fiwP0UF9TmZWpBHBlSNKnmSDvSNf8J43npTFr IUeuPP9CZIB+Natalie+Fq3QOMVcBZHnSJRcVzGuPGLATeHtI1IvS7ZVk1MhV6QdHC48mFcppdWzGQxfSP7X BR9vHUYfRRYNEM2MvCVvjL9qjdSjJrWtKFOMGrMgB65znHLhZISnLYTzZJZgMe5CVRPuV0MvjmTtvHqj biPjHWJoZXOKTY0EYCnvgzXkuHXrpUlbNJ47vMubBH 9EIo7YSwVyFN2xki0NaSBtJd7YKRTbYD4CNZIfDXJrZVEyNRJ8CZJfWbDnWPrhIFIpBAIaCLZ3ORVwZP VfWD6IFuCzEWQnNVlmZoUuMTGtABHrhi3JKBLoWBGfSTckPBWhMBHkBEHcJVlsZTWfFDHyMVH7QIMrAA HuAU0LPlBsRNChSWK6UWYoPPZhYBYwcw7DYGYcSHTp BCeqTKSjAHPdQSBeVZuwNAGxHMGjIGT9QYYfTBSzLG7NQoHpHJFlXCUdVCJxGEFePUUytf6EOGWjSUTq PhCbFTMhORLnJBWzIVdvOQYqLYU7PHvgWOCoALIjLT0VIoJlJCZaNBHkEZWxVABpGYHucc6GGUPaQFWw UQU8YqVlUMLrDFTuKBgxDAIqDBZ3EME5YGAxECGoYH 7CVqUzHXSfVVQzHSAxJJQgJOJnwf0UWWPvVQVuApV8TlMnADVoDUVfOIbcTAMiHEP0VeCbEVHgVRUjZT 7CNvPzWEEoUGJ1KAatUXXsAMDgfr8ZTFGoIDCrEfe9NkWoYJFiVYDdDNgwEECdMOQ2XJeqWDEnBTZlZQ 3GImFnEUIsJYieKKZhHOSqDFUczs3NSOGaZYHzLCE1 KGPgEOQvAYHgUWkkLXFfXBY3RPe1RMIqONEsOP8TDnDoQXIyYyEdAjiyOKUmNDWkjm0KHCMlPWJiEMHc LvUuBPPyYRBvUEz2feOesDClARm7QX9LN1AwsnBvBxPDGp6Fv757TZJ6RILyPj3QF8vaWc6yCMSfSYUT Yu7BWFv2LcS8GNF2GzF4VWQjWvqzVkn4XERoLWJ1WK FmODlhYzM+UEwtWFt4RqM1YCThZnUbB6Y6DcIaALLzACr1WXV1UZWhIq6oIHGDWr5+DQpzdGFydHhyZW BDMqOvOUH1ACaoKSMGUp3Q ID Date Data Source [id number] 02/14/2021 04:07:30 PM EDT [facility] Name Value Range Interpretation Code Description Data Tami rce(s) Supporting Document(s) Progress Note [facility] OIAFZc9qUwLVKdTb85/LJQxsIVPtu5CiVMylXSm1HYaxPQOkT4IoRDD4sH1yGJJ8EDaDGtLoGkMqZkA8 lbm [file] T0YNCg== ID Date Data Source [id number] 02/14/2021 02:22:08 PM EDT [facility] Name Value Range Interpretation Code Description Data Tami rce(s) Supporting Document(s) Progress Note [facility] GLARZp1qJnTVGaGx56/BAQagXUBdo5OwOBcaJUr0NIqtVLMpI7LnYPG1eQ5xINR9DStQNtLfQbRdKaC9 lbm [file] ICAgICAgICAgICAgICAgICAgICAgICAgICAgICAgIC AgICAgICAgICAgICAgICAgICAgICAgICAgICAgICAgICAgICAgICAgICAgICAgDQogICAgICAgICAgIC AgICAgICAgICAgICAgICAgICAgICAgICAgICAgICAgICAgICAgICAgICAgICAgICAgICAgICAgICAgIC AgICAgICAgICAgICAgICAgICAgICAgICAgICAgDQog ICAgICAgICAgICAgICAgICAgICAgICAgICAgICAgICAgICAgICAgICAgICAgICAgICAgICAgICAgICAg ICAgICAgICAgICAgICAgICAgICAgICAgICAgICAgICAgICAgICAgDQogICAgICAgICAgICAgICAgICAg ICAgICAgICAgICAgICAgICAgICAgICAgICAgICAgIC AgICAgICAgICAgICAgICAgICAgICAgICAgICAgICAgICAgICAgICAgICAgICAgICAgDQogICAgICAgIC AgICAgICAgICAgICAgICAgICAgICAgICAgICAgICAgICAgICAgICAgICAgICAgICAgICAgICAgICAgIC AgICAgICAgICAgICAgICAgICAgICAgICAgICAgICAg DQogICAgICAgICAgICAgICAgICAgICAgICAgICAgICAgICAgICAgICAgICAgICAgICAgICAgICAgICAg ICAgICAgICAgICAgICAgICAgICAgICAgICAgICAgICAgICAgICAgICAgDQogICAgICAgICAgICAgICAg ICAgICAgICAgICAgICAgICAgICAgICAgICAgICAgIC AgICAgICAgICAgICAgICAgICAgICAgICAgICAgICAgICAgICAgICAgICAgICAgICAgICAgDQogICAgIC AgICAgICAgICAgICAgICAgICAgICAgICAgICAgICAgICAgICAgICAgICAgICAgICAgICAgICAgICAgIC AgICAgICAgICAgICAgICAgICAgICAgICAgICAgICAg ICAgDQogICAgICAgICAgICAgICAgICAgICAgICAgICAgICAgICAgICAgICAgICAgICAgICAgICAgICAg ICAgICAgICAgICAgICAgICAgICAgICAgICAgICAgICAgICAgICAgICAgICAgDQogICAgICAgICAgICAg ICAgICAgICAgICAgICAgICAgICAgICAgICAgICAgIC MaUVHwZQZzDAZvELTbIAOrAMYmPAQjDEQrTQJyKQWnMSVhIZWuATUeECAuSLPfKURrTMZcWGQwVFy1R0 skEXIqZBLtGC5qMBc1Vz2+OMqIPuEfWGH0rfPfwH1FXN9kn5QvRKmtDYQqj4VwXNy3HK5HUQLyXVygXW 9IUPirsa2QIEGyDKLdmERCh0guMeXlVDI3QQSmTddb GL0ORTMoA6anboStNJRpBBIDREalNBPXQPrzVRIAUM4CNwDcW6YubD43LFKZSq1+DQplbmRvYmoNCjI2 NRLqq9CbEEn1EG2CNFFdJbaud6FvHwsaFDLHZJmlYO0KYXP2IHH5QCUtLo9JBDYqS503zmVzHM1NNm0A PjAkPE4tvh6NKqujTYUuPueCCgs2FHboYQ6WmFOqBU lAsq0kfdPzybDQh2ZtbqXggCDPyJnwIO8oHU3cWIGonVIbJDTYAEamJ0YLVEZTRPErMYZyPv6uBY1oLZ PxGXXbPoJyQZWKDJ3BYQEbUKProTYtWPUfDAPOEA0PQRpgBKU2QGUdjdFxxBIgJJejPR5WKCKenrOjAc YgMCBSDQo+Ee5XDY0op5MfYHzcMPMfFL2eqa7UOUjD NhYqP0T7mDTqY2I0ZSquHy4ENGYbVNAsNsZwDEJWVKmvQP4YXN6kbwS2MW1XwCAwLDPkQLIrvNByJGu1 G64nwTBzBGfxHM4UBPO+Natalie+Th9DUPGkZEZbOHUsGgFyKICYGjZhS1FoU9ZNb5ZhA1SxAZ92vXhpnaSl SEneGR1JFO8tETYoAZHFAT1DmAKvsV8gxeUcFdCmBY KLOtAuC76quDEeQTJlXOJ9KUYzJx5GKDVyN2ApggFenUvjxlCjGDXnCKOGBC1LGVkjceUzbVTnfQcuPQ 80vIqcUS3LKu1TYyHtMR3mtr7OqOJySp3JBAZqVG5IKVHmIPJyYZThXSX6XYHiYtPvYAozOKTbXSZrIL V9QHEmOCHpVV9KAzOzILKrBhU3UHMpTRDtQPZsfe6H CLNrGVAqOnJdOKHjFJQzVGPeHDziUUXnHSQzBGH9JLWuWDLpZP6ZCySmORPwNYSaHDDcVOKaSVYcko8M SZVqYHGuAhT6IgAqWAGgICHqMYwqZFIlRAH2WDN5UGAdGAViXH2MBqNiISRvJPzsBdKgPRAgBNYkpt7Y UWOvTXTmUQxrAkAlKCFcGPYzLZfaOJKgXCO0YIQ3QW RiYOJfIT7STgTyRZHfUQPaAdBbCTCnVDAfwr4ZCFQhZLWwIFY7NxVlRXBvBAHsVXfcIVClMMHqNQN0KU YaPERlRU7LDpKaJXQoVBZ8VMDpOOWoVFOtle4UMVZcTCTcFAGaIqEyHMKgHLEmRUppNZSuNPQeUBE4LJ GuGVGrGE2BJvIuSIHbLhGzYsLpSYPvRZOkbu2VAWWk ZFCmNpF1UJBhLEUiIHIwGLbaXPNhYLDcFjS7GIUtQECuOG5QUxDzEJGxDoUsSPbtEQEwYYYeuc4VVSDb FJRyJND7SEYwNBDkANAqUWdzUQVgIPQ6PQM8YEZbOYUyOQ3AZbJqTUSwHhUmRBZbLKBqDIEnfh4FEHUx FTGqLUD1MBFnCQZiRHTjROmaWZIzUSG6SRk9KHGvNJ CfGU3RGmSjISGnFmniUuhaYYTsTOZkii4WNWLpFLItGsH6XQNjWARvBRAdFAtfHEXhCNB8ONKdZGRfXS WyGV2XLiZcEAdaMIXFQoi7VMhdH0k8WBDyFQ6MD6Whx5CfKkagTSPZNMwbRF8dxgTyQKNgCy4AJ9zAWc ycPSRmQVa0LZG1MlxsX3A8SsO9PfYcGtDjSMI2IvEu Kq7tSJS8TXU4YgapJUUsSSNeGbH2McLaL0IlYTPrElQpCYG7FjWwFT5XSp3XHsA4VQI0fIIkMc0DZqp5 UDEEIpQnLR2UNSn= ID Date Data Source [id number] 02/14/2021 01:40:22 PM EDT [facility] Name Value Range Interpretation Code Description Data Tami rce(s) Supporting Document(s) Color of Urine [facility] Clarity of Urine [facility] Glucose [Mass/volume] in Urine by Test strip Negative [facility] Bilirubin.total [Presence] in Urine by Test strip Negative [facility] Ketones [Mass/volume] in Urine by Test strip Negative [facility] Specific gravity of Urine by Test strip 1.020 1.005-1.025 [facility] Hemoglobin [Presence] in Urine by Test strip Negative A [facility] pH of Urine by Test strip 6.0 5.0-[address] [facility] Protein [Mass/volume] in Urine by Test strip Negative A [facility] Urobilinogen [Units/volume] in Urine by Test strip 0.2 {Ehrlich_U}/ dL 0.2-1.0 [facility] Nitrite [Presence] in Urine by Test strip Negative [facility] Leukocyte esterase [Presence] in Urine by Test strip Negat isabel A [facility] ID Date Data Source [id number] 01/31/2021 04:49:15 PM EDT [facility] Name Value Range Interpretation Code Description Data Tami rce(s) Supporting Document(s) Progress Note [facility] [id number]/[id number]GLM1aK4rEJB5OHpDIiNzGhRpMsJ8 lbm [file] [id number]= ID Date Data Source [id number] 01/31/2021 08:25:20 PM [facility] Name Value Range Interpretation Code Description Data Tami rce(s) Supporting Document(s) Thyroxine (T4) free [Mass/volume] in Serum or Plasma 1.02 ng/dL 0.93- 1.70 [facility] ID Date Data Source [id number] 01/31/2021 08:25:20 PM [facility] Name Value Range Interpretation Code Description Data Tami rce(s) Supporting Document(s) Thyrotropin [Units/volume] in Serum or Plasma 1.790 u[IU]/mL 0.270-4. 200 [facility] ID Date Data Source [id number] 01/31/2021 08:25:20 PM [facility] Name Value Range Interpretation Code Description Data Tami rce(s) Supporting Document(s) Urate [Mass/volume] in Serum or Plasma 5.6 mg/dl 2.4-5.7 [facility] ID Date Data Source [id number] 01/31/2021 08:25:[address] [facility] Value Range Interpretation Code Description Data Tami rce(s) Supporting Document(s) Albumin [Mass/volume] in Serum or Plasma by Bromocresol green (BCG) dye binding method 3.6 g/dL 3.5-5.2 [facility] Bil[facility].total [Mass/volume] in Serum or Plasma <1.2 [facility] Calcium [Mass/volume] in Serum or Plasma 10.0 mg/dL 8.6-10.0 [facility] Chloride [Moles/volume] in Serum or Plasma 101 mmol/L 98-107 [facility] Creatinine [Mass/volume] in Serum or Plasma 0.80 mg/dL 0.50-0.90 [facility] Glucose [Mass/volume] in Serum or Plasma 77 mg/dL 70-140 [facility] Alkaline phosphatase [Enzymatic activity/volume] in Serum or Plasma 123 U/L 35-104 [facility] [place] [facility] Potassium [Moles/volume] in Serum or Plasma 4.1 mmol/L 3.4-5.1 [facility] Protein [Mass/volume] in Serum or Plasma 7.6 g/dL 6.4-8.3 [facility] Sodium [Moles/volume] in Serum or Plasma 136 mmol/L 136-145 [facility] Aspartate aminotransferase [Enzymatic activity/volume] in Serum or Plasma 23 U/L <32 [facility] Urea nitrogen [Mass/volume] in Serum or Plasma 11 mg/dL 6-20 [facility] Osmolality of Serum or Plasma by calculation 280 mosm/kg 275-300 [facility] Creatinine/Urea nitrogen [Mass Ratio] in Serum or Plasma 14 [facility] Bicarbonate [Moles/volume] in Serum 23 mmol/L 22-29 [facility] Alanine aminotransferase [Enzymatic activity/volume] in Seru m or Plasma 27 U/L <33 [facility] Anion gap 3 in Serum or Plasma 12 mmol/L 8-15 [facility] Glomerular filtration rate/1.73 sq M pre dicted among non-blacks [Volume Rate/Area] in Serum or Plasma by Creatinine-based formula (MDRD) >6 0 [facility] Glomerular filtration rate/1.73 sq M pre dicted among blacks [Volume Rate/Area] in Serum or Plasma by Creatinine-based formula (MDRD) >60 [facility] ID Date Data Source [id number] 01/31/2021 08:13:56 PM EDT [facility] Name Value Range Interpretation Code Description Data Tami rce(s) Supporting Document(s) Hemoglobin A1c/Hemoglobin.total in Blood by HPLC 7.6 % 4.0-6.0 H [facility] (NOTE)<5.7% Average risk of diabetes (ADA)5.7-6.4% Increased risk of diabetes(ADA)>/= 6.5% Diagnostic for diabetes(ADA) Glucose mean value [Mass/volume] in Blood Estimated fr om glycated hemoglobin 171 mg/dL <126 H [facility] ID Date Data Source [id number] 12/18/2020 09:00:00 AM EDT [facility] Name Value Range Interpretation Code Description Data Tami rce(s) Supporting Document(s) SARS coronavirus 2 RNA [Presence] in Res piratory specimen by SACHIN with probe detection NEGATIVE [facility] This lab was ordered by [facility] a nd reported by [facility]. ID Date Data Source [id number] 12/18/2020 04:30:00 AM EDT [facility] ([facility]) Name Value Range Interpretation Code Description Data Tami rce(s) Supporting Document(s) Appearance, Urine Laboratory test result Above high normal [facility] ([facility]) Color, Urine Laboratory test result Normal (applies to non -numeric results) [facility] ([facility]) Specific [place] Urine Auto 1.022 1.002-1.035 Norm al (applies to non-numeric results) [facility] ([facility]) Protein, Urine Auto Laboratory test result Above high norm al [facility] ([facility]) PH,Urine 5.0 units 5.0-9.0 Normal (applies to non-numeric resul ts) [facility] ([facility]) Glucose, Urine (Ua) Auto Laboratory test result Above high normal [facility] ([facility]) Ketone, Urine Auto Laboratory test result Above high cinthia l [facility] ([facility]) Urobilinogen, Urine Auto 0.2 mg/dL 0.0-2.0 Normal (applies to non-numeric results) [facility] ([facility]) Bilirubin, Urine Auto Laboratory test result Nor mal (applies to non-numeric results) [facility] ([facility]) Nitrite, Urine Auto Laboratory test result Cinthia l (applies to non-numeric results) [facility] ([facility]) Leukocyte Esterase, Urine Auto Laboratory test result Abov e high normal [facility] ([facility]) Blood, Urine Blood Laboratory test result Normal (applies to non-numeric results) [facility] ([facility]) WBC, Urine Auto 10 /HPF 0-3 Above high normal [facility] ([facility]) RBC, Urine Auto 11 /HPF 0-3 Above high normal [facility] ([facility]) Bacteria, Urine Auto Laboratory test result Above high nor mal [facility] ([facility]) Squamous Epithelial Cell Ur AU 10 /HPF 0-6 N ormal (applies to non-numeric results) [facility] ([facility]) Mucus, Urine Laboratory test result Normal (applies to non -numeric results) [facility] ([facility]) Hyaline Cast, Urine Auto 0 /LPF 0-1 Normal (applies to non -numeric results) [facility] ([facility]) ID Date Data Source [id number] 12/18/2020 03:02:00 AM EDT [facility] ([facility]) Name Value Range Interpretation Code Description Data [facility](s) Supporting Document(s) Glucose [Mass/volume] in Capillary blood by Glucometer 124 mg/dL 70-105 Above high normal [facility] ([facility]) ID Date Data Source [id number] 12/18/2020 01:37:00 AM EDT [facility]) Name Value Range Interpretation Code Description Data [facility](s) Supporting Document(s) Lipase [Enzymatic activity/volume] in Serum or Plasma 43 U/L 73-393 Below low normal [facility]) 0227] @---END MOBILAB COMMENT--- Choriogonadotropin.beta subunit [Moles/volume] in Serum or P lasma [id number] MIU/ML Normal (applies to non-numeric results) [facility] ([facility]) GESTATIONAL AGE APPROXIMATE HCG RANGE (MIU/ML) - [...] monitoring the treatment of cancer patients. Siemens Mystery [employer] methodology. Thyrotropin [Units/volume] in Serum or Plasma 1.480 uIU/ML 0. 358-3.740 Normal (applies to non-numeric results) [facility]) 0227] @---END MOBILAB COMMENT--- ID Date Data Source [id number] 12/18/2020 01:37:00 AM EDT [facility]) Name Value Range Interpretation Code Description Data Tami rce(s) Supporting Document(s) Glucose, Fasting 115 mg/dL 70-100 Above high normal [facility] ([facility]) Creatinine For GFR 0.84 mg/dL 0.55-1.30 Normal (applies to non -numeric results) [facility] ([facility]) Blood Urea Nitrogen 10 mg/dL 7-18 Normal (applies to non-nume jayda results) [facility] ([facility]) Sodium Level 137 meq/L 136-145 Normal (applies to non-numeric res ults) [facility] ([facility]) Glomerular Filtration Rate Laboratory test result Normal (applies to non- numeric results) [facility] ([facility]) <content>Units are mL/min/1.73 m2</content>
<content></content>
<content>Chronic Kidney Disease Staging per NKF:</content>
<content></content>
<content>Stage I & II GFR >=60 Normal to Mildly Decreased</content>
<content>Stage III GFR 30-59 Moderately Decreased</content>
<content>Stage IV GFR 15-29 Severely Decreased</content>
<content>Stage V GFR <15 Very Little GFR Left</content>
<content>ESRD GFR <15 on FISH PROCESSING SUPERVISOR</content>
<content></content> Potassium Serum 4.3 meq/L 3.5-5.1 Normal (applies to non-numeric results) [facility] ([facility]) Chloride Level 106 meq/L 98-107 Normal (applies to non-numeric r esults) [facility] ([facility]) Carbon Dioxide Level 25 meq/L 21-32 Normal (applies to non-num alannah results) [facility] ([facility]) Calcium Level 9.3 mg/dL 8.5-10.1 Normal (applies to non-numeric re sults) [facility] ([facility]) Anion Gap 6 meq/L 8-16 Below low normal [facility] ( [facility]) ID Date Data Source [id number] 12/18/2020 01:37:00 AM EDT [facility] ([facility]) Name Value Range Interpretation Code Description Data Tami rce(s) Supporting Document(s) Alt/SGPT 30 U/L 12-78 Normal (applies to non-numeric resul ts) [facility] ([facility]) Ast/Sgot 21 U/L 7-37 Normal (applies to non-numeric resul ts) [facility] ([facility]) Alkaline Phosphatase 103 U/L 45-117 Normal (applies to non-num alannah results) [facility] ([facility]) Bilirubin,Total 0.2 mg/dL 0.2-1.0 Normal (applies to non-numeric results) [facility] ([facility]) Bilirubin,Direct Laboratory test result 0.0-0.2 Normal ( applies to non-numeric results) [facility] ([facility]) Albumin/Globulin Ratio 0.7 1.2-2.2 Below low normal [facility] ([facility]) Albumin 3.1 GM/DL 3.2-5.2 Below low normal [facility] ( [facility]) Total Protein 7.6 GM/DL 6.4-8.2 Normal (applies to non-numeric re sults) [facility] ([facility]) ID Date Data Source [id number] 12/18/2020 01:37:00 AM EDT [facility] ([facility]) Name Value Range Interpretation Code Description Data Tami rce(s) Supporting Document(s) Red Blood Count 4.51 10 4.00-5.40 Normal (applies to non-numeric results) [facility] ([facility]) White Blood Count 13.1 10 4.0-10.0 Above high normal [facility] ([facility]) Hematocrit 37.8 % 36.0-47.0 Normal (applies to non-numeric resul ts) [facility] ([facility]) Hemoglobin 12.2 g/dL 12.0-15.5 Normal (applies to non-numeric resul ts) [facility] ([facility]) Mean Corpuscular HGB Conc 32.3 g/dL 32.0-36.5 Normal (applies to non-numeric results) [facility] ([facility]) Mean Corpuscular Hemoglobin 27.1 pg 27.0-33.0 Norm al (applies to non-numeric results) [facility] ([facility]) Mean Corpuscular Volume 83.8 fl 80.0-96.0 Normal ( applies to non-numeric results) [facility] ([facility]) Red Cell Distribution Width 13.7 % 11.5-14.5 Norm al (applies to non-numeric results) [facility] ([facility]) Neutrophils % 78.8 % 36.0-66.0 Above high normal [facility] ([facility]) Platelet Count, Automated 408 10 150-450 Normal (applies to non-numeric results) [facility] ([facility]) Eos % 0.3 % 0.0-3.0 Normal (applies to non-numeric resul ts) [facility] ([facility]) [place] % 7.0 % 2.0-8.0 Normal (applies to non-numeric resul ts) [facility] ([facility]) Lymph % 13.3 % 24.0-44.0 Below low normal [facility] ( [facility]) Immature Granulocyte % 0.4 % 0-3.0 Normal (applies to non-n umeric results) [facility] ([facility]) Baso % 0.2 % 0.0-1.0 Normal (applies to non-numeric resul ts) [facility] ([facility]) Nucleated Red Blood Cell % 0.0 % 0-0 Normal (applies to n on-numeric results) [facility] ([facility]) Neutrophils # 10.3 10 1.5-8.5 Above high normal [facility] ([facility]) Lymph # 1.7 10 1.5-5.0 Normal (applies to non-numeric resul ts) [facility] ([facility]) [place] # 0.9 10 0.0-0.8 Above high normal [facility] ([facility]) Baso # 0.0 10 0.0-0.2 Normal (applies to non-numeric resul ts) [facility] ([facility]) Eos # 0.0 10 0.0-0.5 Normal (applies to non-numeric resul ts) [facility] ([facility]) ID Date Data Source [id number] 11/30/2020 12:00:00 AM EDT eCW1 ([facility]) Name Value Range Interpretation Code Description Data Tami rce(s) Supporting Document(s) NEGATIVE NEGATIVE HBsAg eCW1 ([facility]) ID Date Data Source URINE CULTURE 11/30/2020 12:00:00 AM EDT eCW1 ([facility]) Name Value Range Interpretation Code Description Data Tami rce(s) Supporting Document(s) URINE CULTURE eCW1 ([facility]) ID Date Data Source TOTAL PROTEIN,RANDOM URINE 11/30/2020 12:00:00 AM EDT eCW1 ( [facility]) Name Value Range Interpretation Code Description Data Tami rce(s) Supporting Document(s) 50.0 0.0-12.0 TOTAL PROTEIN,RANDOM URIN E eCW1 ([facility]) ID Date Data Source CREATININE,RANDOM URINE 11/30/2020 12:00:00 AM EDT eCW1 ([facility]) Name Value Range Interpretation Code Description Data Tami rce(s) Supporting Document(s) 22.2 CREATININE,RANDOM URINE eCW1 ( [facility]) ID Date Data Source [id number] 11/30/2020 12:00:00 AM EDT eCW1 ([facility]) Name Value Range Interpretation Code Description Data Tami rce(s) Supporting Document(s) Hemoglobin A1c/Hemoglobin.total in Blood 7.7 HEMOGLOBIN A1c eCW1 ([facility]) ID Date Data Source HEPATITIS C ANTIBODY INDEX 11/30/2020 12:00:00 AM EDT eCW1 ( [facility]) Name Value Range Interpretation Code Description Data Tami rce(s) Supporting Document(s) 0.0 <0.8 HEPATITIS C VIRUS ESTEE INDEX eC W1 ([facility]) ID Date Data Source RUBELLA IMMUNE STATUS IgG 11/30/2020 12:00:00 AM EDT eCW1 ([facility]) Name Value Range Interpretation Code Description Data Tami rce(s) Supporting Document(s) IMMUNE IMMUNE RUBELLA IgG QUALITATIVE eCW1 ( [facility]) ID Date Data Source SYPHILIS ANTIBODY (RPR SCREEN) 11/30/2020 12:00:00 AM EDT eC W1 ([facility]) Name Value Range Interpretation Code Description Data Tami rce(s) Supporting Document(s) NONREACTIVE NONREACTIVE SYPHILIS eCW1 ([facility]) ID Date Data Source [id number] 11/30/2020 12:00:00 AM EDT eCW1 ([facility]) Name Value Range Interpretation Code Description Data Tami rce(s) Supporting Document(s) HIV 1&2 ANTIBODY SCREEN eCW1 ( [facility]) ID Date Data Source Pre Eclampsia Profile 11/30/2020 12:00:00 AM EDT eCW1 ([facility]) Name Value Range Interpretation Code Description Data Tami rce(s) Supporting Document(s) > 60.0 >60 GLOMERULAR FILTRATION RATE eCW 1 ([facility]) 1.00 0.55-1.30 CREATININE FOR GFR eCW1 ([facility]) 15 7-37 AST/SGOT eCW1 ([facility]) 4.5 2.6-6.0 URIC ACID eCW1 ([facility]) 0.3 0.2-1.0 BILIRUBIN,TOTAL eCW1 ([facility]) 226 84-246 LDH LACTATE DEHYDROGENASE eCW1 ([facility]) 32 12-78 ALT/SGPT eCW1 ([facility]) ID Date Data Source CHLAMYDIA & GC DNA AMPLIFICAT 11/30/2020 12:00:00 AM EDT eCW 1 ([facility]) Name Value Range Interpretation Code Description Data Tami rce(s) Supporting Document(s) Chlamydia trachomatis rRNA [Presence] in Unspecified specimen by Probe and target amplification method NEGATIVE NEGATIVE CHLAMYDIA DNA AMPLIFICATION eCW1 ([facility]) ID Date Data Source CBC - Complete Blood Count 11/30/2020 12:00:00 AM EDT eCW1 ( [facility]) Name Value Range Interpretation Code Description Data Tami rce(s) Supporting Document(s) 11.3 4.0-10.0 WHITE BLOOD COUNT eCW1 ([facility]) 4.48 4.00-5.40 RED BLOOD COUNT eCW1 ([facility]) 38.7 36.0-47.0 HEMATOCRIT eCW1 ([facility]) 26.6 27.0-33.0 MEAN CORPUSCULAR HEMOGLOB IN eCW1 ([facility]) 11.9 12.0-15.5 HEMOGLOBIN eCW1 ([facility]) 86.4 80.0-96.0 MEAN CORPUSCULAR VOLUME e CW1 ([facility]) 13.8 11.5-14.5 RED CELL DISTRIBUTION WID TH eCW1 ([facility]) 30.7 32.0-36.5 MEAN CORPUSCULAR HGB CONC eCW1 ([facility]) 446 150-450 PLATELET COUNT, AUTOMATED eCW1 ([facility]) ID Date Data Source Type and Screen Prenatal1 11/30/2020 12:00:00 AM EDT eCW1 ([facility]) Name Value Range Interpretation Code Description Data Tami rce(s) Supporting Document(s) NEGATIVE AB SCREEN PNP1 GEL (VIS) eCW1 ([facility]) ID Date Data Source [id number] 11/07/2020 10:56:00 AM EDT [facility] ([facility]) Name Value Range Interpretation Code Description Data Tami rce(s) Supporting Document(s) Inhouse Urine Laboratory test result [facility]) ID Date Data Source [id number] 10/06/2020 12:00:00 AM EST [facility] Name Value Range Interpretation Code Description Data Tami rce(s) Supporting Document(s) SARS-CoV2 Rapid Antigen Negative [facility] This lab [facility] and reported by [facility]. ID Date Data Source [id number] 09/27/2020 01:13:35 PM EST [facility] Name Value Range Interpretation Code Description Data Tami rce(s) Supporting Document(s) Progress Note [facility] WFIMHo5kDfEKNjPz62/MQEvaKGDqc5WiSIuiSEy9SJpeERDlH9YcYCM2iP1mUGJ4QQoHHxVxFuOeQpF0 lbm [file] ukirv9ITbLyQcOSR1Bj6b5XxK2zuDEYH3XZ1abibnY/JfsR59Qx8nfqHKAYJLk+comparison shopper/1u3uMKQOt1bvr [file] AgICAgICAgICAgICAgICAgICAgICAgICAgICAgICAgICAgICAgICAgICAgICAgICAgICAgICAgICAgIC AgICAgICAgICAgICAgICAgICAgICAgICAgICAgICAg ICAgICAgICANCiAgICAgICAgICAgICAgICAgICAgICAgICAgICAgICAgICAgICAgICAgICAgICAgICAg ICAgICAgICAgICAgICAgICAgICAgICAgICAgICAgICAgICAgICAgICAgICAgICAgICANCiAgICAgICAg ICAgICAgICAgICAgICAgICAgICAgICAgICAgICAgIC AgICAgICAgICAgICAgICAgICAgICAgICAgICAgICAgICAgICAgICAgICAgICAgICAgICAgICAgICAgIC ANCiAgICAgICAgICAgICAgICAgICAgICAgICAgICAgICAgICAgICAgICAgICAgICAgICAgICAgICAgIC AgICAgICAgICAgICAgICAgICAgICAgICAgICAgICAg ICAgICAgICAgICANCiAgICAgICAgICAgICAgICAgICAgICAgICAgICAgICAgICAgICAgICAgICAgICAg ICAgICAgICAgICAgICAgICAgICAgICAgICAgICAgICAgICAgICAgICAgICAgICAgICAgICANCiAgICAg ICAgICAgICAgICAgICAgICAgICAgICAgICAgICAgIC AgICAgICAgICAgICAgICAgICAgICAgICAgICAgICAgICAgICAgICAgICAgICAgICAgICAgICAgICAgIC AgICANCiAgICAgICAgICAgICAgICAgICAgICAgICAgICAgICAgICAgICAgICAgICAgICAgICAgICAgIC AgICAgICAgICAgICAgICAgICAgICAgICAgICAgICAg ICAgICAgICAgICAgICANCiAgICAgICAgICAgICAgICAgICAgICAgICAgICAgICAgICAgICAgICAgICAg ICAgICAgICAgICAgICAgICAgICAgICAgICAgICAgICAgICAgICAgICAgICAgICAgICAgICAgICANCiAg ICAgICAgICAgICAgICAgICAgICAgICAgICAgICAgIC AgICAgICAgICAgICAgICAgICAgICAgICAgICAgICAgICAgICAgICAgICAgICAgICAgICAgICAgICAgIC AgICAgICANCiAgICAgICAgICAgICAgICAgICAgICAgICAgICAgICAgICAgICAgICAgICAgICAgICAgIC AgICAgICAgICAgICAgICAgICAgICAgICAgICAgICAg ICAgICAgICAgICAgICAgICANCjw/zPLzT0gygWXsitD7X1huXz9FRx2JRU3jk2FyITChDBmyikWzIfmE OzXhFVDaJlzTLdz3CUmrKY3NrQArS9PrV4DzQYccGB1CHOCrXIJkzBInUECqVDNsErI2IJQyMDujSJ7J aWRzIFsgNSAwIFIgNyAwIFIgOSAwIFIgMTEgMCBSID BnJTJdEtIuGPMgDTGeDHduZLVBES4DMiBkM8ZiyP42WUyXRv6+GNrzyrJdRmfSFwSjKLDxc3WuEHk9HB 4XFRMuIvfzo0JoBcSuLBDLZAgfYC6PVRF4PCSiXCCgZc7ZPVOaZ550loWkQN8EZp9OSoHjEX1wan3VLx UtAYQdXgiXBmo7ERcxUM6OdPTnPLqDxh9eftFuatCA r4KztoRqkGQPWX9zmLRcdnIAXAqzmyOpvmmtYGVXSNB7YJLkPG2lDQPdZTXaItHzEKXAUZ3MRAZkQVXx qGGaVHIiFYCKWV9UTQacRPV3XZZyhhIgfRTkAUzjHF1RGSTcjnBnJmThCFWYOLf+Jd7ROV2sc1WkTOzx WrDzTM3epb7BPMfPPxQxP4B4vGPnO7Y1EJjfGi8ASW MuXFYnAibiYNCYUEmnWD0UKH3claZ3YL9HgRHsVPPkBOTrbIPkNNo6I50qbALvEPosCJ4SBUL+Natalie+Pg 0ESNQmNOOdWOYqSfCrOZDCHcLfD1WeR2ZXl5JmS4MqYN64jDbeviNmFHcgJZ2ELB6sWZQkMACNNC1ZvK OzmS5whyUwEWOjASXDCsPrJ77dnRKtKXNtDGLfCYOn Bl0CYICcM7HwksVnlVqrurInMWIiSBAWGU8OTAmalhOpyETaiJjjTE86yGvdUV4YOz8RTuVgMX9ofi7R lGKaTt0MMKIrXT0EFWXxIZQtZBIyRGY9EGKqHmToCGpqQXZkYYXwGBE2TIUdLHXcNN4UQiVcUTMjQfzm EhZdKFQgECXjgu1DJAUoBIUjYRs7HXYsWDXdWGCqGW iaAOHoDFDlDCA8MYVcXOQpWT4PVyHoSBFxKHP9GEJvFIRzPWHybs3QTSOgQFOrOiv1RcBhFLMvVLBbOZ yxAOQmNJX9KfF6JRBvEVUpKP2QVgWcIPCdWFR7JOtlCRYjXTYwqp1OEWNkFHMzWRC4SVSjXIMnMZOgWD zyHCLnNXG6SXt2WJLmAPMyEM1XAnWpGGOiNEUaIeTc RYSjRXQuzi2LTRVoNCQdAuO2MSDnWQMxCBUbDAshXKBeHCD0SoB9DEEtWUUkBC5ZWeSdGZHtRAB5JCFw VOUuDHZuut4RIHUlQEUaKEzyTACsRGTeYCHoRRnpIOBuZSA0OET6PHZdSCBkAM6EKpClBBCuEgL6TMsm XLWcBBYbhv0DCJAfGMJxYbD4NAJaOMPeOMYgKBmoAO NrEPKdDMW7EODfHVSuDE2ISmRrSDSkJlDtHDTxCPByKMFkez4HYHJgFXXnXqG6MBKhMHCuHPVwCVpsGU CbJPF2SwU6FEQeXBNgHD1GAhMkELGlIbO9MTNhRKSeGINxfs4MCRDhXUOqXYn7MUXfVJLaJMCiGCotVI GvVXC9DCn3XAAaSVCkZC7DMxDaWBAoCdN0JXajSYXt WRUpqv4IMNCdIXPvUfotYXKtDXQdBHKaVUreAHSqZTW4FGM1RLUhLFRfEK2KFfAcXLJqNkrqNBZmPEDf RGHolv8QJUAwVFAtYdGfMCVoSODgQKThXGejZSIiWEP0POhyTJQtJZNqXL7MXpKjKPQiRdbcOCItHYAk BYQxis9MMQDaHWByOKZiXbNnUXUsUDXdLFj0fcKhrV PnBAi7HX3BM0BodbMyHtLOXd7Sx370UWVwMPZbEc3BG0ftLp3dBXCjHIESPh0IQUp9PJDiHZPmBmlvIU blVzXiOtEgCHzmBOmmNQGsHVy0TtQ+DAzyRBQ7DoI2MDGjC1SnSbA5COO9VSEnTOCrSdBeCPrcIX8qZC ANCj4+TTmqiAVnvWttQKQNLxK4MVNiIPekBRVVVc4Z ID Date Data Source [id number] 09/27/2020 01:13:30 PM [facility] Name Value Range Interpretation Code Description Data Tami rce(s) Supporting Document(s) Progress Note [facility] RCCYOh9jAsUDUhAb24/JYAxtWOFpp0YmKJcgFFx4XCvrHDKjF4FgLXA0zF3jSBE5ZKiEQjMdYmLuEgG0 lbm [file] AgICAgICAgICAgICAgICAgICAgICAgICAgICAgICAgICAgICAgICAgICAgICAgICAgICAgICAgICAgIC AgICAgICAgICAgICAgICAgICAgICAgICANCiAgICAg ICAgICAgICAgICAgICAgICAgICAgICAgICAgICAgICAgICAgICAgICAgICAgICAgICAgICAgICAgICAg ICAgICAgICAgICAgICAgICAgICAgICAgICAgICAgICAgICANCiAgICAgICAgICAgICAgICAgICAgICAg ICAgICAgICAgICAgICAgICAgICAgICAgICAgICAgIC AgICAgICAgICAgICAgICAgICAgICAgICAgICAgICAgICAgICAgICAgICAgICANCiAgICAgICAgICAgIC AgICAgICAgICAgICAgICAgICAgICAgICAgICAgICAgICAgICAgICAgICAgICAgICAgICAgICAgICAgIC AgICAgICAgICAgICAgICAgICAgICAgICAgICANCiAg ICAgICAgICAgICAgICAgICAgICAgICAgICAgICAgICAgICAgICAgICAgICAgICAgICAgICAgICAgICAg ICAgICAgICAgICAgICAgICAgICAgICAgICAgICAgICAgICAgICANCiAgICAgICAgICAgICAgICAgICAg ICAgICAgICAgICAgICAgICAgICAgICAgICAgICAgIC AgICAgICAgICAgICAgICAgICAgICAgICAgICAgICAgICAgICAgICAgICAgICAgICANCiAgICAgICAgIC AgICAgICAgICAgICAgICAgICAgICAgICAgICAgICAgICAgICAgICAgICAgICAgICAgICAgICAgICAgIC AgICAgICAgICAgICAgICAgICAgICAgICAgICAgICAN CiAgICAgICAgICAgICAgICAgICAgICAgICAgICAgICAgICAgICAgICAgICAgICAgICAgICAgICAgICAg ICAgICAgICAgICAgICAgICAgICAgICAgICAgICAgICAgICAgICAgICANCiAgICAgICAgICAgICAgICAg ICAgICAgICAgICAgICAgICAgICAgICAgICAgICAgIC AgICAgICAgICAgICAgICAgICAgICAgICAgICAgICAgICAgICAgICAgICAgICAgICAgICANCiAgICAgIC AgICAgICAgICAgICAgICAgICAgICAgICAgICAgICAgICAgICAgICAgICAgICAgICAgICAgICAgICAgIC AgICAgICAgICAgICAgICAgICAgICAgICAgICAgICAg ICANCjw/rLXgL2bdiDVwjcO1C9tjIc6DYm7IWN6wc1ZcXKDvTThzokNyLjgVRlBvQGYtEizIIoy5TQve KP1ZlYDxI3DaX9QhNBadXE4LAIDxDGVxgLLoGGFfMBZcFjM2YQYjGAofJN8TbTTdNOhrXPPzYKPlUD1P ADRwG732bgLgUS9ZZn1NIsHpVP3xgi6YEdVeLPShCl rMXsl5UZftJN9IkAOcoLApCmXhGRHQJwGiY2yoz1KnOqGwWYDSLNfwNK8Wz1GzhOGeMFg+Pc6GGD4vy6 BtQJhuRaQaAX8vuu7ENAgLDbRlV5XpmNadLSHup2yzFYRnBB2tjFBzXSZ6GTJlVKnodpZaFLBiBoYox6 XhhlsxCZWRIVV5ZEXkML3qUKPdQVXzToZgHTCNHD0D QLSnTYKmcIQxZUYlYOIGDC1EGQhqXJV0BMAuhyJetSXhLCsrRT1CWGZtzrUaHiEdFZLJOEq+Gf9FWF0p c8CsNLasVIDtXH7wfo2QBIhDXuCtA5Z6wBBbR3H4FTnnMk1WMUWyLMFuYqYhQAYKUZkeRV6LVW0ncfQ7 NN7ZlELfUVDtCEZadXYsTBy6N99luMZyRRokMP1LEA A+Natalie+Yo7FTJMtCUPrQJZeFaZaJSHQGjCjT0AbA3OCw9JbR8GiXE76qUlofiBnIIaeSC6IJA8eGXCnNL LYQL6QoECwlH8keuSeSvQxQHGFNpQpB65ctNQkTQDoQNBwOHLlQv1APEFmC1YtbdRuvIqufhOfXABcXL ZVAA0NIUhrqqAdzXUzpZseYX48eVzwUC2THc3VVaOx KF2now2GoXBfNa7YIGKqYU5VULUoWGAoTUTkJGW9WTNoNoJfIIxkYIHtWZCqZLH9JUPhGZWrJA1PIoUe RSGxXWu0KJSgJGOxSKCwoz0ZSGUpUZVhJID2GyRaLBWxSOUmHLnfAGLbKOArZZI1YXJyHSVqDO5VZgCw TYHdCSHnWBInTNJaTKYovt7DZAAsPDLzWwQ5FlIqGZ XjAQJuWCgbPIWyEGTjIyR9PPGeYPUxYC2BYnIqCMAnXEH5YERySHUcUSCziv1SNWAmSJDkOyX9TrPsCD HiWEYaRGufIURaIWR7ApYyKPEaEPPfJH1YMaFcEKWdPDV6SQYlQVCpRPWbkx9CBVJgHOXcTYQvWWAgHD XsCPKrEJtqTMZxERC7Osh1OFCaXWFpTK7GVwQoRZDj SRB9CNTuNGOyEJPcoj9UKAMjOLKsIelgWCVrBXGyLKJeBNieMNAsDML8VTR0DWJnFFFgWJ0YXiEkLETx TCutWVSpBYUzLUHxkf2KSRFcRQPvFLZgXGEeNLBaVYUlLSdjHKJhBFG3WJGiARUqAIPtHW0XNhEmNTHu UCt7GLWeOTXjQAAtda5EZMIpEFMtKFNkWkRdTVFpDJ HwHRffMAAmCDAjOTL6VRDwWLMaNQ3NGtHgXWJsZcR3JMTsHRStOQLnob5MOGWiJAUvAFA7RJZaYXXwHW RaLPu6brJmaJTySQv2YB5KJ2LlylNiYuRZWq1Bg826PDP9CMHsBp2EN1nmOz0jYOJlZDWIBz7ALYp7Zf CvVcSnTmfjEkSzXqHpLyE6MVW6QFOsOGB4LGWuOtC+ SAmqELPqHmRqN6IdIDUeEnQjPMKjGSq1EGK3TrL9QxZuCf0aMMMSMf5+DQpzdGFydHhyZWYNCjIwOTEz DVsaXATEQb4X ID Date Data Source PAP REQUEST FOR SERVICE 09/06/2020 12:00:00 AM EST [email or web address] ([facility]) Name Value Range Interpretation Code Description Data Tami rce(s) Supporting Document(s) PAP REQUEST FOR SERVICE eCW1 ( [facility]) ID Date Data Source [id number] 08/18/2020 11:48:00 AM EST MEDENT ([facility]) Name Value Range Interpretation Code Description Data Tami rce(s) Supporting Document(s) Respiratory Panel Laboratory test result [id number] ([facility]) This respiratory PCR panel detects Influ johanna [...] SARS-CoV-2 (COVID 19) ID Date Data Source [id number] 08/18/2020 11:48:00 AM EST [facility] Name Value Range Interpretation Code Description Data Tami rce(s) Supporting Document(s) Respiratory pathogens identified [Type] in Nasopharynx by Probe and target amplification method [facility] This lab was ordered by [facility] a nd reported by [facility]. ID Date Data Source [id number] 06/23/2020 03:22:14 PM EST [facility] Name Value Range Interpretation Code Description Data Tami rce(s) Supporting Document(s) Progress Note [facility] [id number] [facility] [file] [id number] ID Date Data Source [id number] 06/23/2020 12:04:00 PM EST [facility] ([facility]) Name Value Range Interpretation Code Description Data Tami rce(s) Supporting Document(s) Gliadin peptide IgA Ab [Units/volume] in Serum Laboratory test result [facility] ([facility]) Negative Tissue transglutaminase IgA Ab [Units/volume] in Serum Laborator y test result [facility] ([facility]) Negative Gliadin peptide IgG Ab [Units/volume] in Serum Laboratory test result [facility] ([facility]) Negative IgA [Mass/volume] in Serum or Plasma 166 mg/dL 70-400 [facility] ([facility]) ID Date Data Source [id number] 06/23/2020 12:04:00 PM EST [facility] ([facility]) Name Value Range Interpretation Code Description Data Tami rce(s) Supporting Document(s) Calcidiol [Mass/volume] in Serum or Plasma 42 ng/mL [facility] ([facility]) Thyrotropin [Units/volume] in Serum or Plasma 1.320 u[IU]/mL 0.270-4. 200 [facility] ([facility]) ID Date Data Source [id number] 06/23/2020 12:04:00 PM EST [facility] ([facility]) Name Value Range Interpretation Code Description Data Tami rce(s) Supporting Document(s) Cholesterol in HDL [Mass/volume] in Serum or Plasma 32 mg/dL Below low normal [facility] ([facility]) Triglyceride [Mass/volume] in Serum or Plasma 133 mg/dL [facility] ([facility]) Cholesterol [Mass/volume] in Serum or Plasma 186 mg/dL [facility] ([facility]) Cholesterol non HDL [Mass/volume] in Serum or Plasma 154 mg/dL Above high normal [facility] ([facility]) Cholesterol in LDL [Mass/volume] in Serum or Plasma by calculati on 127 mg/dL Above high normal [facility] ([facility]) Cholesterol in VLDL [Mass/volume] in Serum or Plasma by calc ulation 27 mg/dL 16-42 [facility] ([facility]) ID Date Data Source [id number] 06/23/2020 02:59:08 PM [facility] Value Range Interpretation Code Description Data Tami rce(s) Supporting Document(s) Calcidiol [Mass/volume] in Serum or Plasma 42 ng/mL >30 [facility] ID Date Data Source [id number] 06/24/2020 09:46:39 AM [facility] Value Range Interpretation Code Description Data Tami rce(s) Supporting Document(s) Gliadin peptide IgA Ab [Units/volume] in Serum <20.0 [facility] Negative Gliadin peptide IgG Ab [Units/volume] in Serum <20.0 [facility] Negative Tissue transglutaminase IgA Ab [Units/volume] in Serum <20 .0 [facility] Negative IgA [Mass/volume] in Serum or Plasma 166 mg/dL 70-400 [facility] ID Date Data Source [id number] 06/23/2020 02:49:17 PM [facility] Value Range Interpretation Code Description Data Tami rce(s) Supporting Document(s) Cholesterol [Mass/volume] in Serum or Plasma 186 mg/dL <200 [facility] Triglyceride [Mass/volume] in Serum or Plasma 133 mg/dL <150 [facility] Cholesterol in HDL [Mass/volume] in Serum or Plasma 32 mg/dL >50 L [facility] Cholesterol in LDL [Mass/volume] in Serum or Plasma by calcu lation 127 mg/dL <100 H [facility] Cholesterol in VLDL [Mass/volume] in Serum or Plasma by calc ulation 27 mg/dl 16-42 [facility] Cholesterol non HDL [Mass/volume] in Serum or Plasma 154 mg/dL <130 H [facility] ID Date Data Source [id number] 06/23/2020 02:49:17 PM [facility] Name Value Range Interpretation Code Description Data Tami rce(s) Supporting Document(s) Thyrotropin [Units/volume] in Serum or Plasma 1.320 u[IU]/mL 0.270-4. 200 [facility] ID Date Data Source [id number] 06/23/2020 10:51:00 AM EST [facility] ([facility]) Name Value Range Interpretation Code Description Data Tami rce(s) Supporting Document(s) Glucose [Mass/volume] in Serum or Plasma 175 mg/dL 70-140 Above high normal [facility] ([facility]) ID Date Data Source [id number] 06/23/2020 01:09:22 PM [facility] Name Value Range Interpretation Code Description Data Tami rce(s) Supporting Document(s) Glucose [Mass/volume] in Capillary blood by Glucometer 175 mg/dL 70- 140 H [facility] ID Date Data Source [id number] 06/06/2020 12:29:00 AM EDT [facility] ([facility]) Name Value Range Interpretation Code Description Data Tami rce(s) Supporting Document(s) Choriogonadotropin.beta subunit [Moles/volume] in Seru m or Plasma Laboratory test result Normal (applies to non-numeric results) [facility] ([facility]) <content>QUANTITATIVE RESULT QU ALITATIVE INTERPRETATION</content>
<content> </content>
<content><5.0 IU/L NEGATIVE</content>
<content>5.0 - 25.0 IU/L INDETERMINATE</content>
<content>>25.0 IU/L POSITIVE</content>
<content></content> ID Date Data Source [id number] 06/06/2020 12:26:00 AM EDT [facility] ([facility]) Name Value Range Interpretation Code Description Data Tami rce(s) Supporting Document(s) Laboratory test finding (navigational concept) 38.0 % 3 8.0-51.0 Normal (applies to non-numeric results) [facility] ([facility]) Laboratory test finding (navigational concept) 87 mg/dL 7 0-105 Normal (applies to non-numeric results) [facility] ([facility]) Laboratory test finding (navigational concept) 142 meq/L 1 36-145 Normal (applies to non-numeric results) [facility] ([facility]) Laboratory test finding (navigational concept) 4.1 meq/L 3 .5-5.1 Normal (applies to non-numeric results) [facility] ([facility]) Laboratory test finding (navigational concept) 5.0 mg/dL 4 .5-5.3 Normal (applies to non-numeric results) [facility] ([facility]) Laboratory test finding (navigational concept) 21 mg/dL 8 -26 Normal (applies to non-numeric results) [facility] ([facility]) Laboratory test finding (navigational concept) 26.0 MM/L 2 3.0-27.0 Normal (applies to non-numeric results) [facility] ([facility]) Laboratory test finding (navigational concept) 104 meq/L 9 8-109 Normal (applies to non-numeric results) [facility] ([facility]) Laboratory test finding (navigational concept) 1.1 mg/dL 0 .6-1.3 Normal (applies to non-numeric results) [facility] ([facility]) Procedure Social History Code Duration Value Status Description Data Source(s ) Smoking 01/26/2021 12:00:00 AM EDT Never Smoker completed Never S moker eCW1 ([facility]) Smoking 01/12/2021 12:00:00 AM EDT Never Smoker completed Never S moker eCW1 ([facility]) Smoking 01/12/2021 12:00:00 AM EDT Never Smoker completed Never S moker eCW1 ([facility]) Smoking 12/29/2020 12:00:00 AM EDT Never Smoker completed Never S moker eCW1 ([facility]) Smoking 12/15/2020 12:00:00 AM EDT Never Smoker completed Never S moker eCW1 ([facility]) Smoking 12/15/2020 12:00:00 AM EDT Never Smoker completed Never S moker eCW1 ([facility]) Smoking 11/30/2020 12:00:00 AM EDT Never Smoker completed Never S moker eCW1 ([facility]) Smoking 11/30/2020 12:00:00 AM EDT Never Smoker completed Never S moker eCW1 ([facility]) Smoking 11/30/2020 12:00:00 AM EDT Never Smoker completed Never S moker eCW1 ([facility]) Smoking 11/07/2020 12:00:00 AM EDT Patient has never smoked co mpleted Patient has never smoked [facility] ([facility]) Alcohol intake 09/27/2020 12:00:00 AM EST Current non-d geoffrey of alcohol (finding) completed Current non-drinker of alcohol (finding) [facility] Tobacco use and exposure 09/27/2020 12:00:00 AM EST Never used co mpleted Never used [facility] Smoking 09/27/2020 12:00:00 AM EST Never smoker completed Never s [facility] Smoking 09/06/2020 12:00:00 AM EST Never Smoker completed Never S moker eCW1 ([facility]) Alcohol intake 06/23/2020 12:00:00 AM EST Current non-d geoffrey of alcohol (finding) completed Current non-drinker of alcohol (finding) [facility] Vital Signs ID Date Data Source UNK Name Value Range Interpretation Code Description Data Source(s) Systolic blood pressure 118 mm[Hg] 118 mm[Hg] M [facility] ([facility]) Diastolic blood pressure 70 mm[Hg] 70 mm[Hg] [facility] ([facility]) Body height 61.8 [in_i] 61.8 [in_i] [facility] ([facility]) 5'1.80" Body weight 264.25 [lb_av] 264.25 [lb_av] [facility] T ([facility]) Body mass index (BMI) [Ratio] 48.6 kg/m2 48.6 k g/m2 [facility] ([facility]) Heart rate 99 /min 99 /min [facility] ([facility]) Respiratory rate 18 /min 18 /min [facility] ( [facility]) Body temperature 97.7 [degF] 97.7 [degF] [facility] ([facility]) Oxygen saturation in Arterial blood by Pulse oximetry 99 % 99 % [facility] ([facility]) [place] body weight 105 [lb_av] 105 [lb_av] [facility] T ([facility]) [place] body weight 105 [lb_av] 105 [lb_av] [facility] T ([facility]) Oxygen saturation in Arterial blood by Pulse oximetry 98 % 98 % [facility] ([facility]) Systolic blood pressure 120 mm[Hg] 120 mm[Hg] M [facility] ([facility]) Diastolic blood pressure 86 mm[Hg] 86 mm[Hg] [facility] ([facility]) Body height 61.8 [in_i] 61.8 [in_i] [facility] ([facility]) 5'1.80" Body weight 246.12 [lb_av] 246.12 [lb_av] [facility] T ([facility]) Body mass index (BMI) [Ratio] 45.3 kg/m2 45.3 k g/m2 [facility] ([facility]) Heart rate 100 /min 100 /min [facility] ([facility]) Respiratory rate 12 /min 12 /min [facility] ( [facility]) Body temperature 97.3 [degF] 97.3 [degF] [facility] ([facility]) Body weight 236 [lb_av] 236 [lb_av] eCW1 ([facility]) Body height 62 [in_i] 62 [in_i] eCW1 ([facility]) Body mass index (BMI) [Ratio] 43.16 kg/m2 43.16 kg/m2 eCW1 ([facility]) Systolic blood pressure 136 mm[Hg] 136 mm[Hg] e CW1 ([facility]) Diastolic blood pressure 78 mm[Hg] 78 mm[Hg] eCW1 ([facility]) Body weight 232 [lb_av] 232 [lb_av] eCW1 ([facility]) Body height 62 [in_i] 62 [in_i] eCW1 ([facility]) Body mass index (BMI) [Ratio] 42.433 kg/m2 42.4 33 kg/m2 eCW1 ([facility]) Systolic blood pressure 118 mm[Hg] 118 mm[Hg] e CW1 ([facility]) Diastolic blood pressure 76 mm[Hg] 76 mm[Hg] eCW1 ([facility]) Body height 62 [in_i] 62 [in_i] eCW1 ([facility]) Body mass index (BMI) [Ratio] 42.982 kg/m2 42.9 82 kg/m2 eCW1 ([facility]) Systolic blood pressure 112 mm[Hg] 112 mm[Hg] e CW1 ([facility]) Diastolic blood pressure 72 mm[Hg] 72 mm[Hg] eCW1 ([facility]) Body weight 235.0 [lb_av] 235.0 [lb_av] eCW1 ([facility]) Body weight 244 [lb_av] 244 [lb_av] eCW1 ([facility]) Body weight 110.68 kg 110.68 kg W1 ([facility]) Body height 62 [in_i] 62 [in_i] eCW1 ([facility]) Body mass index (BMI) [Ratio] 44.62 kg/m2 44.62 kg/m2 eCW1 ([facility]) Systolic blood pressure 126 mm[Hg] 126 mm[Hg] e CW1 ([facility]) Diastolic blood pressure 72 mm[Hg] 72 mm[Hg] eCW1 ([facility]) Body weight 248.6 [lb_av] 248.6 [lb_av] eCW1 ([facility]) Body height 62 [in_i] 62 [in_i] eCW1 ([facility]) Body weight 112.76 kg 112.76 kg eCW1 ([facility]) Body mass index (BMI) [Ratio] 45.47 kg/m2 45.47 kg/m2 eCW1 ([facility]) Systolic blood pressure 126 mm[Hg] 126 mm[Hg] e CW1 ([facility]) Diastolic blood pressure 80 mm[Hg] 80 mm[Hg] eCW1 ([facility]) Heart rate 92 /min 92 /min [facility] ([facility]) Respiratory rate 18 /min 18 /min [facility] ( [facility]) Body temperature 98.9 [degF] 98.9 [degF] [facility] ([facility]) Oxygen saturation in Arterial blood by Pulse oximetry 97 % 97 % [facility] ([facility]) [place] body weight 105 [lb_av] 105 [lb_av] [facility] T ([facility]) Systolic blood pressure 122 mm[Hg] 122 mm[Hg] M [facility] ([facility]) Diastolic blood pressure 72 mm[Hg] 72 mm[Hg] [facility] ([facility]) Body height 61.8 [in_i] 61.8 [in_i] [facility] ([facility]) 5'80" Body weight 251.00 [lb_av] 251.00 [lb_av] [facility] T ([facility]) Body mass index (BMI) [Ratio] 46.2 kg/m2 46.2 k g/m2 [facility] ([facility]) Body temperature 98.0 [degF] 98.0 [degF] [facility] ([facility]) Oxygen saturation in Arterial blood by Pulse oximetry 98 % 98 % [facility] ([facility]) [place] body weight 105 [lb_av] 105 [lb_av] [facility] T ([facility]) Diastolic blood pressure 80 mm[Hg] 80 mm[Hg] [facility] ([facility]) Body height 61.8 [in_i] 61.8 [in_i] [facility] ([facility]) 5'80" Body weight 254.00 [lb_av] 254.00 [lb_av] [facility] T ([facility]) Body mass index (BMI) [Ratio] 46.8 kg/m2 46.8 k g/m2 [facility] ([facility]) Heart rate 120 /min 120 /min [facility] ([facility]) Respiratory rate 16 /min 16 /min [facility] ( [facility]) Systolic blood pressure 148 mm[Hg] 148 mm[Hg] M [facility] ([facility]) Body weight 250 [lb_av] 250 [lb_av] eCW1 ([facility]) Body height 62 [in_i] 62 [in_i] eCW1 ([facility]) Diastolic blood pressure 84 mm[Hg] 84 mm[Hg] eCW1 ([facility]) Body mass index (BMI) [Ratio] 45.72 kg/m2 45.72 kg/m2 eCW1 ([facility]) Systolic blood pressure 130 mm[Hg] 130 mm[Hg] e CW1 ([facility]) [place] body weight 105 [lb_av] 105 [lb_av] [facility] T ([facility]) Diastolic blood pressure 80 mm[Hg] 80 mm[Hg] [facility] ([facility]) Body height 61.8 [in_i] 61.8 [in_i] [facility] ([facility]) 5'1.80" Body weight 251.00 [lb_av] 251.00 [lb_av] [facility] ([facility]) Systolic blood pressure 136 mm[Hg] 136 mm[Hg] M [facility] ([facility]) Body mass index (BMI) [Ratio] 46.2 kg/m2 46.2 k g/m2 [facility] ([facility]) Heart rate 93 /min 93 /min [facility] ([facility]) Respiratory rate 18 /min 18 /min [facility] ( [facility]) Body temperature 98.0 [degF] 98.0 [degF] [facility] ([facility]) Oxygen saturation in Arterial blood by Pulse oximetry 99 % 99 % [facility] ([facility]) Body mass index (BMI) [Ratio] 46.3 kg/m2 46.3 k g/m2 [facility] ([facility]) Heart rate 93 /min 93 /min [facility] ([facility]) Respiratory rate 18 /min 18 /min [facility] ( [facility]) Body temperature 98.3 [degF] 98.3 [degF] [facility] ([facility]) Oxygen saturation in Arterial blood by Pulse oximetry 96 % 96 % [facility] ([facility]) Body height 61.8 [in_i] 61.8 [in_i] [facility] ([facility]) 5'1.80" Diastolic blood pressure 74 mm[Hg] 74 mm[Hg] [facility] ([facility]) Body weight 251.38 [lb_av] 251.38 [lb_av] [facility] [place] body weight 105 [lb_av] 105 [lb_av] [facility] ([facility]) Systolic blood pressure 128 mm[Hg] 128 mm[Hg] M [facility] ([facility]) Oxygen saturation in Arterial blood by Pulse oximetry 98 % 98 % [facility] ([facility]) Body temperature 98.1 [degF] 98.1 [degF] [facility] ([facility], [facility]) Systolic blood pressure 121 mm[Hg] 121 mm[Hg] [facility]) Diastolic blood pressure 78 mm[Hg] 78 mm[Hg] [facility] ([facility], [facility]) Heart rate 102 /min 102 /min [facility] ([facility], [facility]) Respiratory rate 18 /min 18 /min [facility] ( [facility], [facility]) Body weight 245.00 [lb_av] 245.00 [lb_av] [facility] T ([facility], [facility]) Body temperature 98.2 [degF] 98.2 [degF] [facility] ([facility]) Oxygen saturation in Arterial blood by Pulse oximetry 99 % 99 % [facility] ([facility]) [place] body weight 105 [lb_av] 105 [lb_av] [facility] ([facility]) Systolic blood pressure 124 mm[Hg] 124 mm[Hg] M [facility] ([facility]) Diastolic blood pressure 80 mm[Hg] 80 mm[Hg] [facility] ([facility]) Body height 61.8 [in_i] 61.8 [in_i] [facility] ([facility]) 5'1.80" Body weight 254.00 [lb_av] 254.00 [lb_av] [facility] T ([facility]) Body mass index (BMI) [Ratio] 46.8 kg/m2 46.8 k g/m2 [facility] ([facility]) Heart rate 104 /min 104 /min [facility] ([facility]) Respiratory rate 18 /min 18 /min [facility] ( [facility]) Systolic blood pressure 132 mm[Hg] 132 mm[Hg] M [facility] ([facility]) Diastolic blood pressure 82 mm[Hg] 82 mm[Hg] [facility] ([facility]) Body height 61.8 [in_i] 61.8 [in_i] [facility] ([facility]) 5'1.80" Body weight 249.38 [lb_av] 249.38 [lb_av] [facility] T ([facility]) Body mass index (BMI) [Ratio] 45.9 kg/m2 45.9 k g/m2 [facility] ([facility]) Heart rate 101 /min 101 /min [facility] ([facility]) Respiratory rate 20 /min 20 /min [facility] ( [facility]) Body temperature 97.6 [degF] 97.6 [degF] [facility] ([facility]) Oxygen saturation in Arterial blood by Pulse oximetry 98 % 98 % [facility] ([facility]) [place] body weight 105 [lb_av] 105 [lb_av] [facility] T ([facility]) ID Date Data Source [id number] 06/24/2020 09:46:47 AM [facility] Name Value Range Interpretation Code Description Data Source(s) WEIGHT RECORDED 248.02 lb 248.02 lb [facility] Body height Measured 61.81 in 61.81 in [facility] Patient Treatment Plan of Care Planned Activity Planned Date Details Description Data Source (s) Promethazine Hydrochloride 25 MG Rectal Suppository 12/29/19 12:00:00 AM EDT [facility] ([facility]) Acetone (Urine) Test In Vitro Strip 08/23/2020 12:00:00 AM [facility] Metformin hydrochloride 500 MG Oral Tablet 06/23/2020 12:00:00 AM E [facility] FreeStyle Lite Test In Vitro Strip 03/14/2020 12:00:00 AM [facility] Glucagon 1 MG Injection 03/14/2020 12:00:00 AM [facility]
[2021-06-25] MEDS ORDERED: BOOSTRIX/ADACEL VACCINE (DIPHTH/PERTUSS/ACELL/TETANUS) 0.5ML SYR IM ONE (16:05)
--- NOTE | 2021-06-25 16:32 | REP ---
INDICATION: dog bites left 3rd and 4th fingers. COMPARISON: None. TECHNIQUE: Four views. FINDINGS: There is some soft tissue swelling and laceration over the 3rd digit at the distal end of the middle phalanx and DIP joint at the ulnar and volar aspect. I cannot confirm a bone puncture or fracture. No radiopaque foreign body. Fourth digit shows no swelling. The phalanges, metacarpals, carpal bones of the distal radius and ulna all intact. IMPRESSION: No fracture, avulsion, bone puncture or radiopaque foreign body. There is some soft tissue swelling and laceration suggested over the distal end of the middle phalanx of the 3rd digit on its ulnar and volar aspect. No other significant or acute finding radiographically. <Electronically signed by Rafael Johnson > 06/25/21 [id number]
[2021-06-25] MEDS ORDERED: AUGM875T28 PO (17:18)
== END 2021-06-25 17:52 | disposition home or self-care (01) ==
LOC: M ED 13:44
DX: S61.213A Laceration without foreign body of left middle finger without damage to nail, initial encounter (principal); S61.215A Laceration without foreign body of left ring finger without damage to nail, initial encounter; W54.0XXA Bitten by dog, initial encounter; Y92.9 Unspecified place or not applicable; Y93.9 Activity, unspecified; Y99.9 Unspecified external cause status; E10.9 Type 1 diabetes mellitus without complications

== ENCOUNTER → 2021-07-05 | Outpatient (REF) | payer OTHER ==
[~2021-07-05] MED LIST changes: +BISO5TAB14 PO; +FAMO1TAB11 PO; +LOSA25TA14 PO
== END ==
LOC: M LAB REF 16:55
PROVIDERS: ATTEND Physician Assistant
DX: S61.233D Puncture wound without foreign body of left middle finger without damage to nail, subsequent encounter (principal); L03.012 Cellulitis of left finger; X58.XXXA Exposure to other specified factors, initial encounter; Y92.9 Unspecified place or not applicable

== ENCOUNTER → 2021-07-05 | Outpatient (CLI) | payer OTHER ==
[2021-07-05 13:51] LABS: HEMOGLOBIN A1c 7.8 %
[2021-07-05 13:57] LABS: CHOLESTEROL RISK RATIO 8.2 (<5)
[2021-07-05 13:58] LABS: TOTAL 25(OH) VITAMIN D 57.8 NG/ML (30.0-100.0)
== END ==
LOC: M PLALAB 10:26
PROVIDERS: ATTEND Physician Assistant
DX: E55.9 Vitamin D deficiency, unspecified (principal)